=== PATIENT | male | born 1965 | race African-American/Black ===

== ENCOUNTER → 2016-07-22 | Outpatient (CLI) | payer MEDICARE, OTHER ==
[2016-07-22 09:37] LABS: Basophils % (A) 0 %; CH 31.2; CHCM 32.5; Eosinophils # (A) 0.1 k/uL (0-0.7); Eosinophils % (A) 3 %; HDW 2.75; HGB 12.8 gm/dL (13.0-17.5); Luc # (Auto) 0.13; Luc % (Auto) 4; Lymphocytes # (A) 1.7 k/uL (1.0-4.8); Lymphocytes % (A) 48 %; MCH 30.8 pg (25.0-35.0); MCV 96.4 fL (80.0-100.0); Monocytes # (A) 0.3 k/uL (0-1.0); Monocytes % (A) 7 %; Neutrophils # (A) 1.3 k/uL (1.3-7.7); Neutrophils % (A) 38 %; RBC 4.15 m/uL (4.30-5.90); RDW 13.2 % (11.5-15.5); WBC 3.5 k/uL (3.8-10.6); WBC (Perox) 3.76
[2016-07-22 10:13] LABS: ALT 34 U/L (21-72); AST 25 U/L (17-59); Alkaline Phosphatase 66 U/L (38-126); Anion Gap 10 mmol/L; Blood Urea Nitrogen 11 mg/dL (9-20); Calcium 9.1 mg/dL (8.4-10.2); Carbon Dioxide 25 mmol/L (22-30); Chloride 108 mmol/L (98-107); Glucose 138 mg/dL (74-99); Non-African American GFR(MDRD) >60 (>60 ml/min/1.73 sqM); Potassium 4.6 mmol/L (3.5-5.1); Sodium 143 mmol/L (137-145); Total Bilirubin 0.4 mg/dL (0.2-1.3); Total Protein 6.6 g/dL (6.3-8.2)
[2016-07-23 14:04] LABS: LOG HIV Copies/mL <1.60 (<1.60)
== END | disposition home or self-care (01) ==
LOC: LABWHC1 09:02
PROVIDERS: ATTEND Internal Medicine Infectious Disease
DX: B20 Human immunodeficiency virus [HIV] disease (principal)
CPT/HCPCS: 36415; 80053; 85025; 86360; 87536

== ENCOUNTER 2016-10-03 16:47 | Emergency (ER) | payer MEDICARE, OTHER ==
--- NOTE | 2016-10-03 17:02 | ED ---
Wound/Laceration HPI - General Stated Complaint: finger laceration Time Seen by Provider: 10/03/16 16:59 Source: RN notes reviewed - History of Present Illness Initial Comments: Patient is a 51-year-old male chief complaint of a laceration over his right middle finger. 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 Patient reports his tetanus vaccination is up-to-date. He denies any decreased range of motion of the finger. He states he's never had stitches before. Patient denies any peripheral paresthesias over the finger. He denies any decreased range of motion. He denies any other illnesses. Patient denies any recent fever, chills, shortness of breath, chest pain, back pain, abdominal pain, nausea vomiting, numbness or tingling, dysuria or hematuria, constipation or diarrhea, headaches or visual changes, or any other current symptoms. - Related Data Home Medications Medication Instructions Recorded Confirmed Olmesartan Medoxomil [Benicar] 40 mg PO DAILY 04/23/14 10/03/16 Aspirin 81 mg PO DAILY 05/29/14 10/03/16 Esomeprazole Magnesium [NexIUM] 40 mg PO DAILY 05/29/14 10/03/16 Metoprolol Tartrate [Lopressor] 12.5 mg PO BID 10/22/15 10/03/16 ALPRAZolam [Xanax] 2 mg PO BID PRN 10/03/16 10/03/16 Atorvastatin [Lipitor] 80 mg PO HS 10/03/16 10/03/16 Fluconazole [Diflucan] 100 mg PO DAILY 10/03/16 10/03/16 Gabapentin 800 mg PO BID 10/03/16 10/03/16 HYDROcodone/APAP 7.5-325MG [[place] 1 tab PO Q6HR PRN 10/03/16 10/03/16 7.5-325] Previous Rx's Medication Instructions Recorded Cephalexin [Keflex] 500 mg PO Q8HR #21 cap 10/03/16 Allergies Allergy/AdvReac Type Severity Reaction Status Date / Time No Known Allergies Allergy Verified 10/03/16 17:24 Review of Systems ROS Statement: Those systems with pertinent positive or pertinent negative responses have been documented in the HPI. ROS Other: All systems not noted in ROS Statement are negative. Past Medical History Past Medical History: Chest Pain / Angina, GERD/Reflux, Hypertension, Myocardial Infarction ([place]), Osteoarthritis ([place]) Additional Past Medical History / Comment(s): HIV Last Myocardial Infarction Date:: 2005 History of Any Multi-Drug Resistant Organisms: None Reported Past Surgical History: Coronary Bypass/CABG, Heart Catheterization Additional Past Surgical History / Comment(s): carpal tunnel, CABG 4 VESSEL-2006 Past Anesthesia/Blood Transfusion Reactions: No Reported Reaction Past Psychological History: No Psychological Hx Reported Smoking Status: Current every day smoker Past Alcohol Use History: None Reported Additional Past Alcohol Use History / Comment(s): Smokes 1-2 cigarettes a day since 13yrs old. Past Drug Use History: None Reported - Past Family History Father Family Medical History: Cancer Additional Family Medical History / Comment(s): THROAT Mother Family Medical History: Cancer General Exam - General Exam Comments Initial Comments: Well-appearing 51-year-old male. No acute distress General appearance: alert, in no apparent distress Head exam: Present: atraumatic, normocephalic, normal inspection Eye exam: Present: normal appearance, PERRL, EOMI. Absent: scleral icterus, conjunctival injection, periorbital swelling ENT exam: Present: normal exam, mucous membranes moist Neck exam: Present: normal inspection. Absent: tenderness, meningismus, lymphadenopathy Respiratory exam: Present: normal lung sounds bilaterally. Absent: respiratory distress, wheezes, rales, rhonchi, stridor Cardiovascular Exam: Present: regular rate, normal rhythm, normal heart sounds. Absent: systolic murmur, diastolic murmur, rubs, gallop, clicks GI/Abdominal exam: Present: soft, normal bowel sounds. Absent: distended, tenderness, guarding, rebound, rigid Extremities exam: Present: normal inspection, full ROM, normal capillary refill. Absent: tenderness, pedal edema, joint swelling, calf tenderness Right Hand Wrist exam: Present: full ROM (Patient has a laceration over the right middle finger. Laceration is consistent with a flap.). Absent: normal inspection Hand L/R Back: 1 - laceration measuring 3cm Neuro motor exam: Present: wrist extension intact, thumb opposition intact Vascular: Present: normal capillary refill Back exam: Present: normal inspection Neurological exam: Present: alert, oriented X3, CN II-XII intact Psychiatric exam: Present: normal affect, normal mood Skin exam: Present: warm, dry, intact, normal color. Absent: rash Course Vital Signs 10/03/16 10/03/16 17:03 18:03 Temperature 97.5 F L 97.5 F L Pulse Rate 79 79 Respiratory 18 18 Rate Blood Pressure 126/63 126/63 O2 Sat by Pulse 99 99 Oximetry Procedures - Laceration Laceration #1 Site: hand (middle finger ) Size (cm): 4 Description: flap Depth: simple, single layer Anesthetic Used: benzocaine 0.25% Anesthesia Technique: local infiltration, nerve block Amount (mls): 4 Pre-repair: wound explored, irrigated extensively Size of Sutures: 5-0 Number of Sutures: 5 Technique: simple, interrupted Patient Tolerated Procedure: well, no complications Medical Decision Making - Medical Decision Making Well-appearing 51-year-old male with a chief complaint of laceration over the right middle finger. Patient cut it while slicing tomatoes at work. Patient wound was approximated with 5 sutures. Wound was soaked in Betadine and soapy water. Patient tolerating the sutures will. I discussed to monitor for any signs of infection. Patient is immunocompromised with HIV. Patient will be placed on Keflex for infection prevention. Patient also has full range of motion of the finger and no evidence of tendon involvement. We will put the patient in a finger cot and when he removes the patient will remain in a finger splint to ensure that the wound does not dehisce. Patient agrees with the treatment plan will comply. Return parameters were discussed. Disposition Clinical Impression: Finger laceration Disposition: HOME SELF-CARE Condition: Good Instructions: Finger Laceration (ED) Additional Instructions: Please return to the emergency room in 7 days to have sutures removed. Please leave wound covered for the first 24-48 hours and then leave open to air after that time. Please use clean soap and water to clean the suture area to prevent scabbing over the top of your sutures. Please watch for any signs of infection which may include but not limited to increased pain, swelling, redness, fever or chills. Please return to the emergency room if any signs of infection do occur. Please return to the emergency room for any other concerns or complications. Prescriptions: Cephalexin [Keflex] 500 mg PO Q8HR #21 cap Referrals: Andrey Cota MD [Primary Care Provider] - 1-2 days Time of Disposition: 17:49
[2016-10-03 17:06] VITALS: BP 126/63; PULSE 79; RESP 18; TEMP 97.5
== END 2016-10-03 18:05 | disposition home or self-care (01) ==
LOC: EC 16:47
DX: S61.212A Laceration without foreign body of right middle finger without damage to nail, initial encounter (principal); I10 Essential (primary) hypertension; K21.9 Gastro-esophageal reflux disease without esophagitis; M19.90 Unspecified osteoarthritis, unspecified site; I25.2 Old myocardial infarction; F17.210 Nicotine dependence, cigarettes, uncomplicated; Z79.82 Long term (current) use of aspirin; Z79.899 Other long term (current) drug therapy; W45.8XXA Other foreign body or object entering through skin, initial encounter; Y92.69 Other specified industrial and construction area as the place of occurrence of the external cause; Y99.0 Civilian activity done for income or pay
CPT/HCPCS: 12002; 99282

== ENCOUNTER 2016-10-13 16:37 | Emergency (ER) | payer MEDICARE, OTHER ==
[2016-10-13 16:56] VITALS: BP 146/94; PULSE 88; RESP 18; TEMP 98
--- NOTE | 2016-10-13 17:10 | ED ---
Lower Extremity Injury HPI - General Chief Complaint: Extremity Injury, Lower Stated Complaint: L Ankle Injury Time Seen by Provider: 10/13/16 16:48 Source: patient, RN notes reviewed Mode of arrival: wheelchair Limitations: physical limitation - History of Present Illness Initial Comments: 51-year-old male presents to the emergency department with a chief complaint of left ankle injury. Patient states he is walking on the stairs carrying laundry basket and he tripped and fell. Patient states now has pain to the left ankle pain with bearing weight. Patient also admits to bilateral knees. Patient states he did not hit his head. He states his pain is 10 out of 10 and worse to movement or touch. Patient states there is no lightheadedness or dizziness no chest pain or shortness of prior to the fall.Patient denies any recent fever , chills, shortness of breath, chest pain, back pain, abdominal pain, nausea vomiting, numbness or tingling, dysuria or hematuria, constipation or diarrhea, headaches or visual changes, or any other current symptoms. - Related Data Home Medications Medication Instructions Recorded Confirmed Olmesartan Medoxomil [Benicar] 40 mg PO DAILY 04/23/14 10/13/16 Aspirin 81 mg PO DAILY 05/29/14 10/13/16 Esomeprazole Magnesium [NexIUM] 40 mg PO DAILY 05/29/14 10/13/16 Metoprolol Tartrate [Lopressor] 12.5 mg PO BID 10/22/15 10/13/16 ALPRAZolam [Xanax] 2 mg PO BID PRN 10/03/16 10/13/16 Atorvastatin [Lipitor] 80 mg PO HS 10/03/16 10/13/16 Fluconazole [Diflucan] 100 mg PO DAILY 10/03/16 10/13/16 Gabapentin 800 mg PO BID 10/03/16 10/13/16 HYDROcodone/APAP 7.5-325MG [[place] 1 tab PO Q6HR PRN 10/03/16 10/13/16 7.5-325] Previous Rx's Medication Instructions Recorded Ibuprofen [Motrin] 600 mg PO Q6HR PRN #20 tab 10/13/16 Allergies Allergy/AdvReac Type Severity Reaction Status Date / Time No Known Allergies Allergy Verified 10/13/16 16:59 Review of Systems ROS Statement: Those systems with pertinent positive or pertinent negative responses have been documented in the HPI. ROS Other: All systems not noted in ROS Statement are negative. Past Medical History Past Medical History: Chest Pain / Angina, GERD/Reflux, Hypertension, Myocardial Infarction ([place]), Osteoarthritis (OA) Additional Past Medical History / Comment(s): HIV Last Myocardial Infarction Date:: 2005 History of Any Multi-Drug Resistant Organisms: None Reported Past Surgical History: Coronary Bypass/CABG, Heart Catheterization Additional Past Surgical History / Comment(s): carpal tunnel, CABG 4 VESSEL-2006 Past Anesthesia/Blood Transfusion Reactions: No Reported Reaction Past Psychological History: No Psychological Hx Reported Smoking Status: Current every day smoker Past Alcohol Use History: None Reported Additional Past Alcohol Use History / Comment(s): Smokes 1-2 cigarettes a day since 13yrs old. Past Drug Use History: None Reported - Past Family History Father Family Medical History: Cancer Additional Family Medical History / Comment(s): THROAT Mother Family Medical History: Cancer General Exam - General Exam Comments Initial Comments: General: The patient is awake and alert, in no distress, and does not appear acutely ill. Neck: The neck is supple, there is no tenderness or JVD. Cardiovascular: There is a regular rate and rhythm. No murmur, rub or gallop is appreciated. Respiratory: Lungs are clear to auscultation, respirations are non-labored, breath sounds are equal. No wheezes, stridor, rales, or rhonchi. Musculoskeletal: Sensation intact with 2+ pulses throughout the left and right lower extremities. Full Range of motion of the right ankle. Patient's wound motion the right knee with some tenderness medially. No tenderness in left hip. Patient is well-nourished of left hip. Patient has one motion of left knee with diffuse minimal tenderness. Patient has pain to palpation along the left lateral aspect of the left ankle with associated swelling over the lateral malleolus. Minimal tenderness patient over the medial malleolus of left ankle. 2+ pulses throughout less than 2 capillary refill. Neurological: CN II-XII intact, There are no obvious motor or sensory deficits. Coordination appears grossly intact. Speech is normal. Skin: Skin is warm and dry and no rashes or lesions are noted. Psychiatric: Normal mood and affect. Limitations: physical limitation Course Vital Signs 10/13/16 16:52 Temperature 98.0 F Pulse Rate 88 Respiratory 18 Rate Blood Pressure 146/94 O2 Sat by Pulse 97 Oximetry Procedures - Orthopedic Splinting/Casting Injury #1 Side: left Lower Extremity Injury Location: ankle Lower Extremity Immobilizer: Kevin wrap Medical Decision Making - Medical Decision Making 50-year-old male presents for left ankle pain and bilateral knee pain after a fall. At this time the patient's x-rays are reviewed that showed no acute process. Patient was placed in Kevin bandage. We discussed ice we discussed Motrin Tylenol for pain control. We did discuss return parameters and follow- up. We discussed all the patient's questions. He stated that he understood the plan. He will be discharged. - Radiology Data Radiology results: report reviewed, image reviewed Disposition Clinical Impression: Left ankle sprain, Fall Disposition: HOME SELF-CARE Condition: Stable Instructions: Ankle Sprain (ED) Additional Instructions: Please use medication as discussed. Please follow up with family doctor if symptoms have not improved over the next two days. Please return to the emergency room if your symptoms increase or worsen or for any other concerns. Prescriptions: Ibuprofen [Motrin] 600 mg PO Q6HR PRN #20 tab PRN Reason: Pain Referrals: Andrey Cota MD [Primary Care Provider] - 1-2 days Rui Harper MD [STAFF PHYSICIAN] - 1-2 days Time of Disposition: 17:40
--- NOTE | 2016-10-13 17:35 | XR ---
EXAMINATION TYPE: XR knee complete bilateral DATE OF EXAM: 10/13/2016 5:31 PM COMPARISON: NONE HISTORY: Pain after fall TECHNIQUE: 6 views FINDINGS: The joint spaces are fairly normal. There is normal alignment. There is no sign of knee wes nt effusion. There are surgical clips at the left knee. There is sclerosis in the proximal left tibia that could relate to bone infarct or old surgery. IMPRESSION: No acute abnormality of the left and right knee. No fracture. Normal joint spaces.
--- NOTE | 2016-10-13 17:35 | XR ---
EXAMINATION TYPE: XR ankle complete LT DATE OF EXAM: 10/13/2016 5:30 PM COMPARISON: NONE HISTORY: Pain after a fall TECHNIQUE: 3 views FINDINGS: There is soft tissue swelling over the lateral malleolus. Ankle mortise is anatomic. There is a plantar calcaneal spur. I see no fracture. IMPRESSION: Lateral soft tissue swelling. No fracture seen.
== END 2016-10-13 17:55 | disposition home or self-care (01) ==
LOC: EC 16:37
DX: S93.402A Sprain of unspecified ligament of left ankle, initial encounter (principal); K21.9 Gastro-esophageal reflux disease without esophagitis; I10 Essential (primary) hypertension; I25.2 Old myocardial infarction; M19.90 Unspecified osteoarthritis, unspecified site; F17.200 Nicotine dependence, unspecified, uncomplicated; Z79.82 Long term (current) use of aspirin; Z79.899 Other long term (current) drug therapy; X50.1XXA Overexertion from prolonged static or awkward postures, initial encounter; W10.9XXA Fall (on) (from) unspecified stairs and steps, initial encounter; Y92.009 Unspecified place in unspecified non-institutional (private) residence as the place of occurrence of the external cause
CPT/HCPCS: 99283

== ENCOUNTER → 2016-11-11 | Outpatient (CLI) | payer MEDICARE, OTHER ==
[2016-11-11 11:56] LABS: Basophils % (A) 0 %; CH 31.6; CHCM 32.9; Eosinophils # (A) 0.1 k/uL (0-0.7); Eosinophils % (A) 3 %; HCT 38.3 % (39.0-53.0); HDW 2.78; HGB 12.2 gm/dL (13.0-17.5); Luc # (Auto) 0.13; Luc % (Auto) 3; Lymphocytes # (A) 1.7 k/uL (1.0-4.8); Lymphocytes % (A) 39 %; MCH 30.8 pg (25.0-35.0); MCHC 31.9 g/dL (31.0-37.0); MCV 96.5 fL (80.0-100.0); Mean Platelet Volume 7.3; Monocytes # (A) 0.2 k/uL (0-1.0); Monocytes % (A) 6 %; Neutrophils # (A) 2.2 k/uL (1.3-7.7); Neutrophils % (A) 50 %; RBC 3.96 m/uL (4.30-5.90); RDW 13.7 % (11.5-15.5); WBC 4.4 k/uL (3.8-10.6); WBC (Perox) 4.54
[2016-11-11 12:09] LABS: ALT 24 U/L (21-72); AST 19 U/L (17-59); Alkaline Phosphatase 69 U/L (38-126); Anion Gap 10 mmol/L; Blood Urea Nitrogen 19 mg/dL (9-20); Calcium 9.2 mg/dL (8.4-10.2); Carbon Dioxide 20 mmol/L (22-30); Chloride 107 mmol/L (98-107); Glucose 245 mg/dL (74-99); Non-African American GFR(MDRD) 59 (>60 ml/min/1.73 sqM); Potassium 5.6 mmol/L (3.5-5.1); Sodium 137 mmol/L (137-145); Total Bilirubin 0.6 mg/dL (0.2-1.3); Total Protein 7.1 g/dL (6.3-8.2)
[2016-11-11 14:20] LABS: Hemoglobin A1C 8.8 % (4.2-6.1)
[2016-11-12 16:46] LABS: LOG HIV Copies/mL <1.60 (<1.60)
== END | disposition home or self-care (01) ==
LOC: LABWHC1 11:32
PROVIDERS: ATTEND Internal Medicine Infectious Disease
DX: B20 Human immunodeficiency virus [HIV] disease (principal)
CPT/HCPCS: 36415; 80053; 83036; 85025; 86360; 87536

== ENCOUNTER → 2017-02-03 | Outpatient (CLI) | payer MEDICARE, OTHER ==
[2017-02-03 11:00] LABS: Basophils % (A) 1 %; CH 32.2; CHCM 33.3; Eosinophils # (A) 0.1 k/uL (0-0.7); Eosinophils % (A) 2 %; HCT 37.7 % (39.0-53.0); HDW 2.76; HGB 12.5 gm/dL (13.0-17.5); Luc # (Auto) 0.18; Luc % (Auto) 4; Lymphocytes # (A) 2.4 k/uL (1.0-4.8); Lymphocytes % (A) 48 %; MCH 32.1 pg (25.0-35.0); MCV 97.2 fL (80.0-100.0); Mean Platelet Volume 8.5; Monocytes # (A) 0.3 k/uL (0-1.0); Monocytes % (A) 7 %; Neutrophils # (A) 1.9 k/uL (1.3-7.7); Neutrophils % (A) 39 %; RBC 3.88 m/uL (4.30-5.90); RDW 14.4 % (11.5-15.5); WBC 4.9 k/uL (3.8-10.6); WBC (Perox) 4.59
[2017-02-03 11:14] LABS: ALT 31 U/L (21-72); AST 20 U/L (17-59); Alkaline Phosphatase 59 U/L (38-126); Anion Gap 8 mmol/L; Blood Urea Nitrogen 19 mg/dL (9-20); Carbon Dioxide 23 mmol/L (22-30); Chloride 108 mmol/L (98-107); Glucose 140 mg/dL (74-99); Non-African American GFR(MDRD) 54 (>60 ml/min/1.73 sqM); Potassium 4.9 mmol/L (3.5-5.1); Sodium 139 mmol/L (137-145); Total Bilirubin 0.3 mg/dL (0.2-1.3); Total Protein 6.6 g/dL (6.3-8.2)
[2017-02-04 13:33] LABS: LOG HIV Copies/mL <1.60 (<1.60)
== END | disposition home or self-care (01) ==
LOC: LABWHC1 10:40
PROVIDERS: ATTEND Internal Medicine Infectious Disease
DX: B20 Human immunodeficiency virus [HIV] disease (principal)
CPT/HCPCS: 36415; 80053; 83036; 85025; 86360; 87536

== ENCOUNTER 2017-07-10 12:00 | Emergency (ER) | payer MEDICARE, OTHER ==
[2017-07-10] MEDS ORDERED: SODIUM CHLORIDE 0.9% 1,000 ML BAG ONE (14:50)
[2017-07-10] MEDS ORDERED: ASPIRIN 81 MG ONE (15:00)
--- NOTE | 2017-07-11 10:50 | XR ---
EXAMINATION TYPE: TEMPORARY DATE OF EXAM: 07/10/2017 COMPARISON: 05/24/2015 TECHNIQUE: One view submitted. HISTORY: Pain FINDINGS: The lungs are clear and there is no pneumothorax, pleural effusion, or focal pneumonia. Postsurgica l change. No overt failure. IMPRESSION: 1. No acute process.
[2017-07-11 13:27] LABS: Basophils % (A) 1 %; Eosinophils # (A) 0.1 k/uL (0-0.7); Eosinophils % (A) 2 %; HCT 40.2 % (39.0-53.0); HGB 13.5 gm/dL (13.0-17.5); Lymphocytes # (A) 1.6 k/uL (1.0-4.8); Lymphocytes % (A) 38 %; MCH 33.2 pg (25.0-35.0); MCHC 33.5 g/dL (31.0-37.0); MCV 98.9 fL (80.0-100.0); Mean Platelet Volume 7.3; Monocytes # (A) 0.3 k/uL (0-1.0); Monocytes % (A) 7 %; Neutrophils % (A) 48 %; Platelet Count 133 k/uL (150-450); RBC 4.06 m/uL (4.30-5.90); WBC 4.2 k/uL (3.8-10.6)
[2017-07-11 15:27] LABS: Anisocytosis (M) Present; Poikilocytosis (M) Present
[2017-07-11 15:29] LABS: Creatine Kinase MB 0.6 ng/mL (0.0-2.4); Troponin I 0.016 ng/mL (0.000-0.034)
[2017-07-11 16:26] LABS: Creatine Kinase MB 0.6 ng/mL (0.0-2.4); Troponin I 0.019 ng/mL (0.000-0.034)
[2017-07-11 16:52] LABS: Albumin 4.5 g/dL (3.5-5.0); Calcium 10.1 mg/dL (8.4-10.2); Magnesium 1.9 mg/dL (1.6-2.3); Potassium 6.1 mmol/L (3.5-5.1); Total Bilirubin 0.5 mg/dL (0.2-1.3); Total Protein 7.4 g/dL (6.3-8.2)
[2017-07-13 13:36] LABS: Glucose,Whole Blood 130 mg/dL (75-99)
== END 2017-07-10 19:19 | disposition left against medical advice (07) ==
LOC: EC 12:00
DX: R55 Syncope and collapse (principal); R42 Dizziness and giddiness; F17.200 Nicotine dependence, unspecified, uncomplicated
CPT/HCPCS: 36415; 71020; 80053; 82550; 82553; 83735; 83880; 84484; 85025; 93005; 96360; 96361; 99284

== ENCOUNTER → 2017-09-03 | Outpatient (CLI) | payer MEDICARE, OTHER ==
--- NOTE | 2017-09-03 12:17 | XR ---
EXAM TYPE: LUMBAR SPINE X RAY SERIES COMPARISON: NONE HISTORY: Chronic pain TECHNIQUE: Three views are submitted. FINDINGS: Alignment is anatomic. The pedicles are intact. The transverse processes are intact. There is grad e 1 anterolisthesis L5 on S1. Suspect bilateral spondylolysis. Changes of chronic constipation. There is a calcification the left upper abdomen measuring 3 mm in di ameter. IMPRESSION: 1. Grade 1 anterolisthesis L5 on S1. Bilateral spondylolysis suspected. 2. Correlate for constipation. 3. Left hemipelvic calcifications measures 3 mm and could potentially been the course of the left ure ter. Correlate clinically.
== END | disposition home or self-care (01) ==
LOC: RADXRMAIN 11:56
PROVIDERS: ATTEND Internal Medicine Infectious Disease
DX: M43.17 Spondylolisthesis, lumbosacral region (principal)
CPT/HCPCS: 72100

== ENCOUNTER → 2017-10-12 | Outpatient (CLI) | payer MEDICARE, OTHER ==
[2017-10-12 08:36] LABS: Basophils % (A) 1 %; Eosinophils # (A) 0.1 k/uL (0-0.7); Eosinophils % (A) 3 %; HCT 35.8 % (39.0-53.0); HGB 11.5 gm/dL (13.0-17.5); Lymphocytes # (A) 1.5 k/uL (1.0-4.8); Lymphocytes % (A) 35 %; MCH 31.8 pg (25.0-35.0); MCV 99.2 fL (80.0-100.0); Mean Platelet Volume 7.9; Monocytes # (A) 0.3 k/uL (0-1.0); Monocytes % (A) 8 %; Neutrophils # (A) 2.2 k/uL (1.3-7.7); Neutrophils % (A) 52 %; Platelet Count 128 k/uL (150-450); RBC 3.61 m/uL (4.30-5.90); RDW 13.8 % (11.5-15.5); WBC 4.2 k/uL (3.8-10.6)
[2017-10-12 08:50] LABS: Calcium 9.5 mg/dL (8.4-10.2); Potassium 4.5 mmol/L (3.5-5.1); Total Bilirubin 0.3 mg/dL (0.2-1.3); Total Protein 6.6 g/dL (6.3-8.2)
[2017-10-13 11:11] LABS: T4/T8 Ratio (CD4:CD8) 0.3 (1.0-3.7)
[2017-10-13 13:27] LABS: HIV-1 RNA Not detected (Not detected); HIV-1 RNA, Quant <40 Copies/mL (<40)
== END | disposition home or self-care (01) ==
LOC: LABWHC1 07:51
PROVIDERS: ATTEND Internal Medicine Infectious Disease
DX: B20 Human immunodeficiency virus [HIV] disease (principal)
CPT/HCPCS: 36415; 80053; 85025; 86360; 87536

== ENCOUNTER → 2018-02-05 | Outpatient (CLI) | payer MEDICARE, OTHER ==
[2018-02-05 11:49] LABS: Calcium 9.3 mg/dL (8.4-10.2); Potassium 5.3 mmol/L (3.5-5.1); Total Bilirubin 0.5 mg/dL (0.2-1.3); Total Protein 6.3 g/dL (6.3-8.2)
[2018-02-05 12:10] LABS: Basophils % (A) 1 %; Eosinophils # (A) 0.1 k/uL (0-0.7); Eosinophils % (A) 3 %; HCT 35.8 % (39.0-53.0); HGB 11.6 gm/dL (13.0-17.5); Lymphocytes # (A) 1.3 k/uL (1.0-4.8); Lymphocytes % (A) 38 %; MCH 31.4 pg (25.0-35.0); MCHC 32.5 g/dL (31.0-37.0); MCV 96.8 fL (80.0-100.0); Mean Platelet Volume 7.5; Monocytes # (A) 0.3 k/uL (0-1.0); Monocytes % (A) 8 %; Neutrophils # (A) 1.6 k/uL (1.3-7.7); Neutrophils % (A) 46 %; Platelet Count 128 k/uL (150-450); RBC 3.69 m/uL (4.30-5.90); RDW 13.7 % (11.5-15.5); WBC 3.4 k/uL (3.8-10.6)
[2018-02-08 12:58] LABS: T4/T8 Ratio (CD4:CD8) 0.3 (1.0-3.7)
== END | disposition home or self-care (01) ==
LOC: LABWHC1 11:07
PROVIDERS: ATTEND Internal Medicine Infectious Disease
DX: B20 Human immunodeficiency virus [HIV] disease (principal)
CPT/HCPCS: 36415; 80053; 85025; 86360; 87536

== ENCOUNTER → 2018-03-20 | Outpatient (CLI) | payer MEDICARE, OTHER ==
[2018-03-20 11:52] LABS: HCT 40.3 % (39.0-53.0); MCH 31.3 pg (25.0-35.0); MCHC 32.2 g/dL (31.0-37.0); MCV 97.4 fL (80.0-100.0); Platelet Count 129 k/uL (150-450); RBC 4.14 m/uL (4.30-5.90); RDW 13.5 % (11.5-15.5); WBC 4.4 k/uL (3.8-10.6)
[2018-03-20 12:03] LABS: Potassium 5.2 mmol/L (3.5-5.1)
== END | disposition home or self-care (01) ==
LOC: LABPAT 11:34
PROVIDERS: ATTEND Internal Medicine Interventional Cardiology
DX: Z01.812 Encounter for preprocedural laboratory examination (principal); I25.10 Atherosclerotic heart disease of native coronary artery without angina pectoris; I50.22 Chronic systolic (congestive) heart failure; I10 Essential (primary) hypertension
CPT/HCPCS: 36415; 80051; 82565; 84520; 85027

== ENCOUNTER 2018-03-24 10:59 | Day surgery (SDC) | payer MEDICARE, OTHER ==
[2018-03-19 08:41] VITALS: BMI 24.2
[~2018-03-24 10:59] MED LIST: ALPRAZolam 0.25 MG TAB PO PRN; ASPIRIN 325 MG TAB PO ONE; ASPIRIN 325 MG TAB PO STA; NITROGLYCERIN SL TABS 0.4 MG TAB SUBLINGUAL PRN; SODIUM CHLORIDE 0.9% 1,000 ML in EMPTY BAG 1 BAG IV ONE
[2018-03-24 11:51] LABS: Glucose,Whole Blood 378 mg/dL (75-99)
[2018-03-24] MEDS ORDERED: INSULIN ASPART 100 UNIT/ML 1 ML 10 ML VIAL SQ ONE ×2 (11:52→12:09)
[2018-03-24] MEDS ORDERED: MIDAZOLAM 2 MG/2 ML VIAL ONE (11:53)
[2018-03-24] MEDS ORDERED: LIDOCAINE 1% INJ 10MG/ML (20 ML MDV) ONE (11:53)
[2018-03-24] MEDS ORDERED: HEPARIN SODIUM 1,000 UN/ML (10ML VL) ONE (11:53)
[2018-03-24] MEDS ORDERED: VERAPAMIL 2.5 MG/ML 2 ML AMP ONE (11:53)
[2018-03-24] MEDS ORDERED: IV FLUID CONTINUATION 1,000 ML IV ONE (12:13)
[2018-03-24] MEDS ORDERED: MIDAZOLAM 2 MG/2 ML VIAL IVP ONE (12:14)
[2018-03-24] MEDS ORDERED: LIDOCAINE 1% INJ 10MG/ML (20 ML MDV) SQ ONE (12:19)
[2018-03-24] MEDS ORDERED: fentaNYL (PF) 50 MCG/ML 2 ML AMP ONE (12:22)
[2018-03-24] MEDS: fentaNYL (PF) 50 MCG/ML 2 ML AMP IVP ONE ×2 (12:24→13:06)
[2018-03-24] MEDS ORDERED: IOPAMIDOL-370 125ML BTL INJ ONE (12:57)
[2018-03-24] MEDS ORDERED: RX INFO: IV CONTRAST WAS GIVEN 1 EACH MISC MISCELLANE PRN (13:14)
[2018-03-24] MEDS ORDERED: SODIUM CHLORIDE 0.9% 1,000 ML IV SCH (13:15)
--- NOTE | 2018-03-24 14:14 | P.GSCN ---
History of Present Illness Consult date: 03/24/18 Reason for Consult: Coronary artery disease, occlusion of saphenous vein grafts, recommendations for redo CABG versus stenting Requesting physician: Jimbo Leonard History of present illness: This is a 52-year-old gentleman who recently changed doctors and will be followed Dr. Andrey Cota on an outpatient basis. He has a previous medical history of coronary artery disease with prior coronary artery bypass grafting in 2005 in [place] at [facility], hypertension, hyperlipidemia, ischemic cardiomyopathy, HIV positive diagnosis 2013, non- insulin-dependent diabetes, previous tobacco dependence, and significant family history of coronary artery disease diagnosed before the age of 6060 years old. Last heart catheterization completed on this patient was done in October 2015 with 100% occlusion of the saphenous vein graft to the LAD, intermediate disease in the saphenous vein graft to the RCA, and patent saphenous vein graft to the OM. Medical management was continued at that time. The patient presented to Dr. Leonard's office with complaints of intermittent chest pain with exertion as well as exertional dyspnea which is relieved with sublingual nitro and rest. He does admit to occasional dizziness, but does denies syncope, nausea, or any other symptoms. Stress test was completed and Dr. Sun's office which demonstrated a large scar in the anterior wall LV as well as moderate ischemia on the septum of the LV with transient ischemic irritation. He was recommended to undergo heart catheterization which was completed today and which demonstrated continued 100% stenosis of the saphenous vein graft to the LAD, 80% stenosis in the saphenous vein graft to the OM, and 100% stenosis in the saphenous vein graft to the RCA. Dr. Wilson from cardiothoracic surgery was consulted for recommendations regarding redo CABG versus stenting to the OM and RCA. Review of Systems Review of systems was completed and is negative except as noted. - Constitutional Reports weight loss - Cardiovascular Reports chest pain, Reports dyspnea on exertion Past Medical History Past Medical History: Asthma, Chest Pain / Angina, Diabetes Mellitus, GERD/ Reflux, Hyperlipidemia, Hypertension, Myocardial Infarction ([place]) Additional Past Medical History / Comment(s): HIV, chronic low back pain Last Myocardial Infarction Date:: 2005 History of Any Multi-Drug Resistant Organisms: None Reported Past Surgical History: Coronary Bypass/CABG, Heart Catheterization Additional Past Surgical History / Comment(s): apoorva carpal tunnel, CABG 4 VESSEL- 2006 Past Anesthesia/Blood Transfusion Reactions: No Reported Reaction Past Psychological History: No Psychological Hx Reported Smoking Status: Former smoker Past Alcohol Use History: None Reported Past Drug Use History: Marijuana Additional Drug Use History / Comment(s): Quit smoking 2 months ago, prior to that smoked half pack a day for 15 years, occasional marijuana use - Past Family History Father Family Medical History: Cancer Additional Family Medical History / Comment(s): THROAT Mother Family Medical History: Cancer Sister(s) Family Medical History: Coronary Artery Disease (CAD) Medications and Allergies Home Medications Medication Instructions Recorded Confirmed Type Olmesartan Medoxomil [Benicar] 40 mg PO DAILY 04/23/14 03/19/18 History Esomeprazole Magnesium [NexIUM] 40 mg PO DAILY 05/29/14 03/19/18 History ALPRAZolam [Xanax] 2 mg PO BID PRN 10/03/16 03/24/18 History Atorvastatin [Lipitor] 80 mg PO HS 10/03/16 03/24/18 History HYDROcodone/APAP 7.5-325MG [[place] 1 tab PO Q6HR PRN 10/03/16 03/19/18 History 7.5-325] Gabapentin [Neurontin] 600 mg PO BID 07/11/17 03/19/18 History Spironolactone [Aldactone] 25 mg PO DAILY 07/11/17 03/19/18 History Albuterol Inhaler [Ventolin Hfa 1 - 2 puff INHALATION RT-Q6H PRN 03/19/18 History Inhaler] Aspirin 325 mg PO DAILY 03/19/18 03/24/18 History Bictegrav/Emtricit/Tenofov [place] 1 each PO DAILY 03/19/18 03/19/18 History [Biktarvy 50-200-25 mg Tablet] Nitroglycerin Sl Tabs [Nitrostat] 0.4 mg SUBLINGUAL Q5M PRN 03/19/18 03/19/18 History metFORMIN HCL [Glucophage] 500 mg PO BID 03/19/18 03/19/18 History Allergies Allergy/AdvReac Type Severity Reaction Status Date / Time No Known Allergies Allergy Verified 03/19/18 08:29 Surgical - Exam Vital Signs Temp Pulse Resp BP Pulse Ox 97.8 F 60 20 125/70 99 03/24/18 11:19 03/24/18 11:19 03/24/18 11:19 03/24/18 11:19 03/24/18 11:19 - General well developed, well nourished, no distress, no pain - Eyes PERRL, normal ocular movement - ENT no hearing loss - Neck no masses, no bruits, trachea midline - Respiratory Lungs sounds clear bilaterally. Respirations even, nonlabored. Currently on room air with oxygen saturation 98%. No chest wall deformities noted. - Cardiovascular S1, S2 present. No murmur heard. Regular rate and rhythm, sinus rhythm on telemetry. Palpable peripheral pulses bilaterally. No edema present. No calf pain or tenderness noted. No varicosities noted. - Abdomen Abdomen: soft, non tender, bowel sounds - Genitourinary Deferred - Rectum Deferred - Integumentary Anterior chest incision well healed, left lower extremity EVH site well healed. no rash, no growths - Neurologic normal coordination, normal sensation - Psychiatric oriented to time, oriented to person, oriented to place, speech is normal, memory intact Results - Labs Abnormal Lab Results - Last 24 Hours (Table) 03/24/18 Range/Units 11:49 POC Glucose (mg/dL) 378 H (75-99) mg/dL - Imaging Additional studies: Cardiac catheterization films reviewed. Assessment and Plan (1) Coronary artery disease Current Visit: Yes Status: Chronic Code(s): I25.10 - ATHSCL HEART DISEASE OF [place] CORONARY ARTERY W/O ANG PCTRS SNOMED Code(s): 74813627 (2) Status post coronary artery bypass graft Current Visit: Yes Status: Chronic Code(s): Z95.1 - PRESENCE OF AORTOCORONARY BYPASS GRAFT SNOMED Code(s): 291450954 (3) Hypertension Current Visit: Yes Status: Chronic Code(s): I10 - ESSENTIAL (PRIMARY) HYPERTENSION SNOMED Code(s): 63964489 (4) Hyperlipidemia Current Visit: Yes Status: Chronic Code(s): E78.5 - HYPERLIPIDEMIA, UNSPECIFIED SNOMED Code(s): 25563469 (5) Non-insulin dependent type 2 diabetes mellitus Current Visit: Yes Status: Chronic Code(s): E11.9 - TYPE 2 DIABETES MELLITUS WITHOUT COMPLICATIONS SNOMED Code(s): 48683287 (6) Ischemic cardiomyopathy Current Visit: Yes Status: Chronic Code(s): I25.5 - ISCHEMIC CARDIOMYOPATHY SNOMED Code(s): 745906998 (7) Tobacco dependence in remission Current Visit: No Status: Resolved Code(s): F17.201 - NICOTINE DEPENDENCE, UNSPECIFIED, IN REMISSION SNOMED Code(s): 505160514 (8) Family history of early CAD Current Visit: Yes Status: Chronic Code(s): Z82.49 - FAMILY HX OF ISCHEM HEART DIS AND OTH DIS OF THE CIRC SYS SNOMED Code(s): 858305630 (9) HIV positive Current Visit: Yes Status: Chronic Code(s): Z21 - ASYMPTOMATIC HUMAN IMMUNODEFICIENCY VIRUS INFECTION STATUS SNOMED Code(s): 417735108 Plan: The patient was seen and examined in the extended stay unit. Chart/diagnostics were reviewed. Will discuss the case in detail with Dr. Wilson. Would recommend continuing maximal medical therapy with aspirin, statin, beta anne , Aldactone, ARB. Encourage continued smoking cessation. Encourage continued compliance with medical treatment. More recommendations to follow. Thank you Dr. Leonard for this consult. We will review his films and discuss our recommendations with you. Time with Patient: Greater than 30
[2018-03-24 14:40] LABS: Glucose,Whole Blood 138 mg/dL (75-99)
--- NOTE | 2018-03-24 16:20 | CC ---
CARDIAC CATHETERIZATION REPORT DATE OF SERVICE: March 24, 2018 PERFORMING PHYSICIAN: Jimbo Leonard MD, air force senior officer. PROCEDURE PERFORMED: 1. Selective left and right coronary angiogram. 2. SVG to LAD angiogram. 3. SVG to left circumflex angiogram. 4. SVG to RCA angiogram. 5. Left heart catheterization. 6. Left ventriculography. INDICATION: This is a pleasant 52-year-old gentleman with known history of coronary artery disease with the last heart catheterization was performed in 2016 showing severe triple-vessel coronary artery disease with severe triple-vessel coronary artery disease with occluded SVG to LAD and patent SVG to left circumflex as well as SVG to RCA, was recently experiencing chest discomfort. He underwent a myocardial perfusion imaging stress test and that revealed a large anterior myocardial scar with ischemia of moderate size and moderate intensity involving the infra septum area of the left ventricle. Because of that, a heart catheterization was recommended. APPROACH: Right common femoral artery. COMPLICATION: None. LEVEL OF SEDATION: Moderate with sedation length of 45 minutes. PROCEDURE DESCRIPTION: After obtaining an informed consent, the patient was brought to cardiac laborer [place]. The right common femoral artery was cannulated using micropuncture technique and a micropuncture wire passed easily. Then I placed a 6-Namibian sheath in the right common femoral artery. I did after that a selective left and right coronary angiogram. Selective left coronary angiogram was performed using JL3.5 5-Namibian catheter and selective right coronary angiogram was performed using JR4 6-Namibian catheter. SVG angiogram for the LAD, OM, and RCA were performed using the JR4 catheter. Left heart catheterization and left ventriculography were performed using 6-Namibian pigtail catheter. The procedure was completed without any complication. SELECTIVE CORONARY ANGIOGRAM: 1. The left main is a moderate caliber vessel. The left main has a tight lesion distally appeared to be in the range of 80%. It bifurcates into left circumflex and left anterior descending artery. 2. The LAD is 100% occluded from the ostium. 3. The left circumflex: The left circumflex has a tight lesion by the ostium as well as appeared to be in the range of 80%. Then it gives rise into the first OM branch which is a small to medium caliber vessel and second OM branch which is small caliber vessel with competitive flow was seen in the mid of it. The left circumflex continues after that as a small to medium caliber vessel in the AV groove. 4. The RCA: The RCA is a moderate to large caliber vessel. The proximal RCA has mild disease only. The mid RCA has mild disease only as well. The RCA distally appeared to have a critical and long tubular lesion in the range of 80-90 percent. It bifurcates into PDA and PLV branches both have mild disease only. The PDA and PLV branches are small caliber vessel. CORONARY BYPASS ANGIOGRAM: 1. SVG to LAD is occluded by the ostium. 2. The SVG to OM1 and OM2 is open with a tight lesion between OM1 and OM2 appeared to be in the range of 80-90 percent. 3. The SVG to right coronary artery is occluded. HEMODYNAMICS: The left ventricular end-diastolic pressure was only 8 mmHg and no gradient was identified across the aortic valve. Left ventriculography was performed in the SNIDER projection and using a power injection. Left ventricular systolic function is severely impaired with EF around 15% with dilated left ventricle and global hypokinesia more prominent in the anterior, apical, and inferoapical segment of the left ventricle. CONCLUSION: 1. Severe triple-vessel coronary artery disease. 2. Occluded SVG to LAD. 3. Severe disease involving the SVG to left circumflex. 4. Occluded SVG to right coronary artery. POSTPROCEDURE MANAGEMENT: I am going to consult the surgeon for the evaluation of redo CABG. If the patient turned to be high risk for surgery, I will consider doing a PCI of the left circumflex and possible PCI of the RCA with the adjunctive use of left ventricular assist device. MMODL / IJN: [id number] /
--- NOTE | 2018-03-24 16:29 | LTR ---
March 24, [address] Cota: Mr. Sandip Munson underwent today a heart catheterization for intermittent episodes of chest discomfort as well as abnormal myocardial perfusion imaging stress test. The heart catheterization showed severe triple-vessel coronary artery disease with the occlusion to graft and severe lesion involving the 3rd graft. Putting everything together, I am going to consult surgeon for the evaluation of redo CABG. If the patient turned to be high risk for surgeon, I will consider doing a PCI of the SVG to left circumflex with adjunctive use of left ventricular assist device. I want to thank you for allowing me to participate in his care and please do not hesitate to call if you have any question or concern. MMODL / IJN: [id number] /
[2018-03-24 17:46] LABS: Glucose,Whole Blood 302 mg/dL (75-99)
[2018-03-24 20:17] LABS: Glucose,Whole Blood 337 mg/dL (75-99)
[2018-03-24 21:45] LABS: Magnesium 1.7 mg/dL (1.6-2.3); Potassium 5.2 mmol/L (3.5-5.1)
[2018-03-24] MEDS: INSULIN ASPART 100 UNIT/ML 1 ML 10 ML VIAL SQ SCH (22:25)
[2018-03-24] MEDS ORDERED: HYDROcodone/APAP 7.5-325MG 1 EACH TAB PO PRN (22:39)
[2018-03-24] MEDS ORDERED: ALPRAZolam 1 MG TAB PO PRN (22:39)
[2018-03-24 23:29] LABS: Glucose,Whole Blood 276 mg/dL (75-99)
[2018-03-25 07:11] LABS: Glucose,Whole Blood 146 mg/dL (75-99)
[2018-03-25] MEDS ORDERED: INSULIN ASPART 100 UNIT/ML 1 ML 10 ML VIAL SQ SCH (07:30)
[2018-03-25] MEDS: INSULIN ASPART 100 UNIT/ML 1 ML 10 ML VIAL SQ SCH (08:32)
[2018-03-25 08:55] VITALS: RESP 18
[2018-03-25 12:09] VITALS: BP 115/74; PULSE 76; TEMP 98.3
--- NOTE | 2018-03-25 15:54 | DS ---
DISCHARGE SUMMARY ADMISSION DATE: March 24, 2018. DISCHARGE DATE: March 25, 2018 BRIEF HISTORY: This is a very pleasant 52-year-old gentleman who was experiencing symptoms of chest discomfort and underwent a myocardial perfusion imaging that came in to be abnormal. He underwent heart catheterization yesterday and that showed severe triple-vessel coronary artery disease with the occlusion of the SVG to LAD, SVG to RCA, and severe disease involving the SVG to left circumflex. I did consult surgeon for the evaluation of redo CABG and the patient was turned to be high risk and percutaneous coronary intervention of the left circumflex is recommended. The patient is going to be discharged home. I will follow up with him in the office. I will discuss with him the options of revascularization again. The right groin is soft and nontender and without any bruises. MMODL / IJN: [id number] /
[2018-03-25 16:09] LABS: Hemoglobin A1C 11.7 % (4.0-6.0)
== END 2018-03-25 12:20 | disposition home or self-care (01) ==
LOC: CATHCVL 10:59 → 3OBS 13:02 → CATHCVL 03-25 12:20
PROVIDERS: ATTEND Internal Medicine Interventional Cardiology
DX: I25.710 Atherosclerosis of autologous vein coronary artery bypass graft(s) with unstable angina pectoris (principal); I25.82 Chronic total occlusion of coronary artery; I10 Essential (primary) hypertension; Z87.891 Personal history of nicotine dependence; I25.5 Ischemic cardiomyopathy; I25.2 Old myocardial infarction; B20 Human immunodeficiency virus [HIV] disease; E78.5 Hyperlipidemia, unspecified; E11.9 Type 2 diabetes mellitus without complications; Z79.84 Long term (current) use of oral hypoglycemic drugs; K21.9 Gastro-esophageal reflux disease without esophagitis; G89.29 Other chronic pain; M54.5 Low back pain; Z82.49 Family history of ischemic heart disease and other diseases of the circulatory system; Z79.2 Long term (current) use of antibiotics; Z79.82 Long term (current) use of aspirin; Z79.899 Other long term (current) drug therapy
CPT/HCPCS: 93459; 83735; 84132 ×2; 83036; C1769; J2250; J2001; J3010; Q9967

== ENCOUNTER 2018-04-19 08:45 | Inpatient (IN) | payer MEDICARE, OTHER ==
[2018-04-13 15:55] VITALS: BMI 22.4
[~2018-04-19 08:45] MED LIST changes: -ASPIRIN 325 MG TAB PO ONE; -NITROGLYCERIN SL TABS 0.4 MG TAB SUBLINGUAL PRN
[2018-04-19] MEDS ORDERED: INSULIN ASPART 100 UNIT/ML 1 ML 10 ML VIAL SQ ONE (09:58)
[2018-04-19] MEDS ORDERED: IV FLUID CONTINUATION 950 ML IV ONE (10:00)
[2018-04-19 10:10] LABS: Glucose,Whole Blood 322 mg/dL (75-99)
[2018-04-19 10:13] LABS: Calcium 9.4 mg/dL (8.4-10.2); Potassium 5.4 mmol/L (3.5-5.1)
[2018-04-19] MEDS ORDERED: LIDOCAINE 1% INJ 10MG/ML (20 ML MDV) ONE ×2 (10:15→11:12)
[2018-04-19] MEDS ORDERED: MIDAZOLAM 2 MG/2 ML VIAL ONE ×2 (10:16→11:25)
[2018-04-19] MEDS ORDERED: HEPARIN SODIUM 1,000 UN/ML (10ML VL) ONE (10:36)
[2018-04-19] MEDS: MIDAZOLAM 2 MG/2 ML VIAL IV ONE ×2 (10:54→11:05)
[2018-04-19] MEDS ORDERED: fentaNYL (PF) 50 MCG/ML 2 ML AMP ONE (10:58)
[2018-04-19] MEDS ORDERED: LIDOCAINE 1% INJ 10MG/ML (20 ML MDV) SQ ONE (10:58)
[2018-04-19] MEDS ORDERED: fentaNYL (PF) 50 MCG/ML 2 ML AMP IV ONE ×2 (11:00)
[2018-04-19] MEDS ORDERED: TICAGRELOR 90 MG TAB ONE (11:20)
[2018-04-19] MEDS ORDERED: TICAGRELOR 90 MG TAB PO ONE (11:23)
[2018-04-19] MEDS ORDERED: MIDAZOLAM 2 MG/2 ML VIAL IV ONE (11:28)
[2018-04-19] MEDS: niCARdipine Syringe (1,000 mcg/10 mL) INTRACORON ONE ×2 (11:31→11:37)
[2018-04-19] MEDS ORDERED: IOPAMIDOL-370 125ML BTL INJ ONE (11:42)
[2018-04-19] MEDS ORDERED: ALPRAZolam 1 MG TAB PO PRN (11:54)
[2018-04-19] MEDS ORDERED: NITROGLYCERIN SL TABS 0.4 MG TAB SUBLINGUAL PRN ×2 (11:54→11:55)
[2018-04-19] MEDS ORDERED: MAG HYDROX/AL HYDROX/SIMETH 30 ML CUP PO PRN (11:55)
[2018-04-19] MEDS ORDERED: RX INFO: IV CONTRAST WAS GIVEN 1 EACH MISC MISCELLANE PRN (11:55)
[2018-04-19] MEDS ORDERED: ATROPINE SULFATE 0.1 MG/ML 10ML SYRINGE IV PRN (11:55)
[2018-04-19] MEDS ORDERED: ZOLPIDEM 5 MG TAB PO PRN (11:55)
[2018-04-19] MEDS ORDERED: SODIUM CHLORIDE 0.9% 1,000 ML IV SCH (12:00)
[2018-04-19 12:16] LABS: Glucose,Whole Blood 170 mg/dL (75-99)
[2018-04-19] MEDS: HYDROcodone/APAP 7.5-325MG 1 EACH TAB PO PRN ×2 (12:44→23:12)
--- NOTE | 2018-04-19 12:46 | LTR ---
April 19, 2018 Re: Sandip Munson Dear Dr. Cota: Mr. Sandip Munson underwent successful stenting of the left circumflex coronary artery with good angiographic results and without any complication. Thank you for allowing me to participate in his care and please do not hesitate to call if you have any question or concern. Sincerely, MD TI Lee / LORENZA: [id number] /
--- NOTE | 2018-04-19 13:10 | PTCA ---
PERCUTANEOUSTRANS CORORONARY ANGIOGRAPHY DATE OF SERVICE: April 19, 2018 PERFORMING PHYSICIAN: Jimbo Leonard MD, electrical technician. PROCEDURE PERFORMED: 1. Selective bilateral femoral artery angiogram. 2. Successful placement of Impella in the left ventricle. 3. Successful direct stenting of the SVG to OM using 3.5 x 18 mm Xience AYLIN with good angiographic results. INDICATION: This is a pleasant 53-year-old gentleman with known history of coronary artery disease and status post coronary artery bypass grafting who was experiencing chest discomfort concerning for angina. He does have severe cardiomyopathy as well. He underwent coronary angiogram few weeks ago and that revealed severe triple-vessel coronary artery disease with severe disease involving the SVG to OM, that SVG to OM was his lifeline. He was seen and evaluated by cardiothoracic surgeon for redo CABG and he was turned down from the surgical standpoint. Because of that, we decided to pursue with an intervention on the SVG to OM. APPROACH: Right and left common femoral artery. COMPLICATION: None. LEVEL OF SEDATION: Moderate with a sedation length of 50 minutes. PROCEDURE DESCRIPTION: After obtaining an informed consent, the patient was brought to the cardiac drop crew laborer. The right common femoral artery was cannulated using micropuncture technique, I placed a micropuncture sheath in the right common femoral artery then I did selective right common femoral artery angiogram to prove that access was in the right spot. After that, I did deploy 2 Perclose at 10 and 2 o'clock. After that, I upgraded my sheath into a 13-Greek sheath. Then I did access the left common femoral artery using micropuncture technique, the micropuncture wire passed easily then I placed a 6-Greek sheath in the left common femoral artery. After that I did place an Impella in the left ventricle after I crossed the left ventricle using 6-Greek pigtail catheter with 0.035 wire then I did exchange my 0.035 wire into 0.018 Impella wire before I advanced the Impella over the 0.018 wire. After that, anticoagulation was initiated using heparin. Subsequently I did engage the SVG to OM using JR4 guide. A whisper wire was used to wire that SVG to OM, then I did direct stenting using 3.5 x 18 mm Xience AYLIN where the stent was positioned under fluoroscopy guidance and deployed under its nominal pressure. The following angiogram showed good angiographic results and the procedure was completed without any complication. POSTPROCEDURE MANAGEMENT: 1. Dual antiplatelet therapy. 2. Risk factor modifications. 3. Aggressive cholesterol control. 4. Follow up with the patient. TI / LORENZA: [id number] /
[2018-04-19] MEDS ORDERED: MORPHINE SULFATE 2 MG/ML SYRINGE IVP PRN (16:17)
[2018-04-19 17:08] LABS: Glucose,Whole Blood 187 mg/dL (75-99)
[2018-04-19] MEDS: INSULIN ASPART 100 UNIT/ML 1 ML 10 ML VIAL SQ SCH ×2 (17:36→20:22)
[2018-04-19 20:00] LABS: Glucose,Whole Blood 272 mg/dL (75-99)
[2018-04-19] MEDS: GABAPENTIN 300 MG CAP PO SCH (20:22)
[2018-04-19] MEDS: TICAGRELOR 90 MG TAB PO SCH (20:22)
[2018-04-19] MEDS ORDERED: ATORVASTATIN 80 MG TAB PO SCH (21:00)
[2018-04-20 04:26] LABS: Basophils % (A) 0 %; Eosinophils # (A) 0.1 k/uL (0-0.7); Eosinophils % (A) 2 %; HCT 35.6 % (39.0-53.0); HGB 11.7 gm/dL (13.0-17.5); Lymphocytes # (A) 1.2 k/uL (1.0-4.8); Lymphocytes % (A) 29 %; MCH 31.5 pg (25.0-35.0); MCHC 32.9 g/dL (31.0-37.0); MCV 95.5 fL (80.0-100.0); Mean Platelet Volume 7.8; Monocytes # (A) 0.3 k/uL (0-1.0); Monocytes % (A) 7 %; Neutrophils # (A) 2.5 k/uL (1.3-7.7); Neutrophils % (A) 60 %; Platelet Count 110 k/uL (150-450); RBC 3.72 m/uL (4.30-5.90); RDW 13.3 % (11.5-15.5); WBC 4.2 k/uL (3.8-10.6)
[2018-04-20 04:29] LABS: Calcium 9.1 mg/dL (8.4-10.2); Potassium 4.6 mmol/L (3.5-5.1)
[2018-04-20 07:11] LABS: Glucose,Whole Blood 279 mg/dL (75-99)
[2018-04-20] MEDS ORDERED: PANTOPRAZOLE 40 MG TABLET PO SCH (07:30)
[2018-04-20] MEDS: TICAGRELOR 90 MG TAB PO SCH (07:56)
[2018-04-20] MEDS: INSULIN ASPART 100 UNIT/ML 1 ML 10 ML VIAL SQ SCH ×2 (07:56→12:26)
[2018-04-20] MEDS: GABAPENTIN 300 MG CAP PO SCH (07:56)
[2018-04-20 08:08] VITALS: TEMP 98.5
[2018-04-20] MEDS ORDERED: ASPIRIN 81 MG PO SCH (09:00)
[2018-04-20] MEDS ORDERED: [UNRECOGNIZED DRUG - OTHER] PO SCH (09:00)
[2018-04-20] MEDS ORDERED: SPIRONOLACTONE 25 MG TAB PO SCH (09:00)
[2018-04-20] MEDS ORDERED: LOSARTAN 50 MG TAB PO SCH (09:00)
[2018-04-20 10:09] VITALS: BP 144/86
--- NOTE | 2018-04-20 10:14 | DS ---
DISCHARGE SUMMARY ADMISSION DATE: 04/19/2018. DISCHARGE DATE: 04/20/2018 BRIEF HISTORY: This is a pleasant 53-year-old gentleman with known history of severe underlying coronary artery disease and prior coronary artery bypass grafting who was admitted to the hospital yesterday and underwent successful stenting of the SVG to left circumflex with adjunctive use of Impella. The patient is overall feeling better. Denies having any chest pain or discomfort. Both groins are soft and nontender and without any bruises. The patient is going to be discharged home on dual antiplatelet therapy and I will follow up with him in the office in a week. MMODL / IJN: [id number] /
[2018-04-20 11:59] LABS: Glucose,Whole Blood 224 mg/dL (75-99)
[2018-04-20 12:28] VITALS: PULSE 91; RESP 16
[2018-04-20 15:17] LABS: Hemoglobin A1C 11.8 % (4.0-6.0)
== END 2018-04-20 12:57 | disposition home or self-care (01) | DRG 215 ==
LOC: 2ORMAIN 08:45 → EDSTATUS 10:30 → 6ICU 11:40
PROVIDERS: ADMIT Internal Medicine Interventional Cardiology; ATTEND Internal Medicine Interventional Cardiology
PROC: 5A0221D Assistance with Cardiac Output using Impeller Pump, Continuous (ICD-10-PCS; 2018-04-19)
PROC: 027034Z Dilation of Coronary Artery, One Artery with Drug-eluting Intraluminal Device, Percutaneous Approach (ICD-10-PCS; principal; 2018-04-19 10:00)
PROC: 02HA3RZ Insertion of Short-term External Heart Assist System into Heart, Percutaneous Approach (ICD-10-PCS; 2018-04-19 10:00)
DX: I25.810 Atherosclerosis of coronary artery bypass graft(s) without angina pectoris (principal); I42.9 Cardiomyopathy, unspecified
CPT/HCPCS: 80048; 83036; 85025; 85347; C1874

== ENCOUNTER → 2018-05-28 | Outpatient (CLI) | payer MEDICARE, OTHER ==
[2018-05-28 17:38] LABS: Basophils % (A) 0 %; Eosinophils # (A) 0.1 k/uL (0-0.7); Eosinophils % (A) 2 %; HCT 37.9 % (39.0-53.0); HGB 12.1 gm/dL (13.0-17.5); Hypochromasia Slight; Lymphocytes # (A) 1.6 k/uL (1.0-4.8); Lymphocytes % (A) 37 %; MCH 31.6 pg (25.0-35.0); MCHC 31.9 g/dL (31.0-37.0); Mean Platelet Volume 7.9; Monocytes # (A) 0.3 k/uL (0-1.0); Monocytes % (A) 7 %; Neutrophils # (A) 2.2 k/uL (1.3-7.7); Neutrophils % (A) 50 %; RBC 3.83 m/uL (4.30-5.90); WBC 4.4 k/uL (3.8-10.6)
[2018-05-28 17:42] LABS: Platelet Count 168 k/uL (150-450)
[2018-05-29 02:24] LABS: Albumin 4.5 g/dL (3.80-4.90); Albumin/Globulin Ratio 2.05 (1.20-2.10); Anion Gap 7.1 mmol/L (4.00-12.00); Calcium 9.5 mg/dL (8.7-10.3); Carbon Dioxide 26.9 mmol/L (21.6-31.8); Globulin 2.2 g/dL (2.1-3.7); Potassium 4.7 mmol/L (3.5-5.5); Total Bilirubin 0.5 mg/dL (0.2-1.2); Total Protein 6.7 g/dL (6.2-8.2)
[2018-05-29 13:47] LABS: T4/T8 Ratio (CD4:CD8) 0.4 (1.0-3.7)
[2018-05-31 15:03] LABS: HIV-1 RNA DETECTED (Not detected); HIV-1 RNA, Quant <40 Copies/mL (<40)
== END | disposition home or self-care (01) ==
LOC: LABWHC1 16:32
PROVIDERS: ATTEND Internal Medicine Infectious Disease
DX: B20 Human immunodeficiency virus [HIV] disease (principal)
CPT/HCPCS: 36415; 80053; 85025; 86360; 87536

== ENCOUNTER → 2018-08-16 | Outpatient (CLI) | payer MEDICARE, OTHER ==
[2018-08-16 11:29] LABS: Albumin 4.1 g/dL (3.80-4.90); Albumin/Globulin Ratio 1.86 (1.20-2.10); Anion Gap 10.3 mmol/L (4.00-12.00); Calcium 9.7 mg/dL (8.7-10.3); Carbon Dioxide 20.7 mmol/L (21.6-31.8); Globulin 2.2 g/dL (1.6-3.3); Potassium 5.1 mmol/L (3.5-5.5); Total Bilirubin 0.5 mg/dL (0.3-1.2); Total Protein 6.3 g/dL (6.2-8.2)
[2018-08-16 12:47] LABS: Hemoglobin A1C 15.5 % (4.0-6.0)
== END ==
LOC: LABWHC1 06:41
PROVIDERS: ATTEND Internal Medicine Endocrinology, Diabetes & Metabolism
DX: E11.65 Type 2 diabetes mellitus with hyperglycemia (principal)
CPT/HCPCS: 36415; 80053; 83036; 83519; 84681

== ENCOUNTER → 2018-08-30 | Outpatient (CLI) | payer MEDICARE, OTHER ==
[2018-08-30 07:53] LABS: Basophils % (A) 0 %; Eosinophils # (A) 0.1 k/uL (0-0.7); Eosinophils % (A) 3 %; HCT 35.9 % (39.0-53.0); HGB 11.4 gm/dL (13.0-17.5); Hypochromasia Slight; Lymphocytes # (A) 1.2 k/uL (1.0-4.8); Lymphocytes % (A) 32 %; MCH 31.1 pg (25.0-35.0); MCHC 31.9 g/dL (31.0-37.0); MCV 97.6 fL (80.0-100.0); Mean Platelet Volume 7.1; Monocytes # (A) 0.3 k/uL (0-1.0); Monocytes % (A) 7 %; Neutrophils # (A) 2.1 k/uL (1.3-7.7); Neutrophils % (A) 54 %; Platelet Count 130 k/uL (150-450); RBC 3.67 m/uL (4.30-5.90); RDW 14.2 % (11.5-15.5); WBC 3.9 k/uL (3.8-10.6)
[2018-08-30 11:17] LABS: Anion Gap 7.1 mmol/L (4.00-12.00); Carbon Dioxide 26.9 mmol/L (21.6-31.8); Potassium 4.8 mmol/L (3.5-5.5)
[2018-08-30 11:18] LABS: Albumin/Globulin Ratio 1.9 (1.60-3.17); Calcium 9.3 mg/dL (8.7-10.3); Globulin 2.1 g/dL (1.6-3.3); LDL Cholesterol,Calculated 38.8 mg/dL (0.0-131.0); Total Bilirubin 0.4 mg/dL (0.2-1.2); Total Protein 6.1 g/dL (6.2-8.2); VLDL Calculation 19.2 mg/dL (5.00-40.00)
[2018-08-31 13:20] LABS: HIV-1 RNA Not detected (Not detected); HIV-1 RNA, Quant <40 Copies/mL (<40)
== END ==
LOC: LABWHC1 06:53
PROVIDERS: ATTEND Internal Medicine Infectious Disease
DX: B20 Human immunodeficiency virus [HIV] disease (principal)
CPT/HCPCS: 36415; 80053; 80061; 85025; 87536

== ENCOUNTER → 2018-12-07 | Outpatient (CLI) | payer MEDICARE, OTHER ==
[2018-12-07 11:54] LABS: Albumin 4.3 g/dL (3.80-4.90); Albumin/Globulin Ratio 1.95 (1.60-3.17); Anion Gap 5.2 mmol/L (4.00-12.00); Calcium 9.3 mg/dL (8.7-10.3); Carbon Dioxide 24.8 mmol/L (21.6-31.8); Globulin 2.2 g/dL (1.6-3.3); LDL Cholesterol,Calculated 54.2 mg/dL (0.0-131.0); Potassium 4.6 mmol/L (3.5-5.5); Total Bilirubin 0.5 mg/dL (0.2-1.2); Total Protein 6.5 g/dL (6.2-8.2); VLDL Calculation 12.8 mg/dL (5.00-40.00)
== END | disposition home or self-care (01) ==
LOC: LABWHC1 06:37
PROVIDERS: ATTEND Internal Medicine Endocrinology, Diabetes & Metabolism
DX: E10.65 Type 1 diabetes mellitus with hyperglycemia (principal)
CPT/HCPCS: 36415; 80053; 80061

== ENCOUNTER → 2019-03-14 | Outpatient (CLI) | payer MEDICARE, OTHER ==
[2019-03-14 12:17] LABS: Chol/HDL Ratio 1.92; LDL Cholesterol,Calculated 29.2 mg/dL (0.0-131.0); VLDL Calculation 14.8 mg/dL (5.00-40.00)
== END | disposition home or self-care (01) ==
LOC: LABWHC1 07:10
PROVIDERS: ATTEND Internal Medicine Interventional Cardiology
DX: E78.2 Mixed hyperlipidemia (principal)
CPT/HCPCS: 36415; 80061; 84450; 84460

== ENCOUNTER 2019-04-23 13:36 | Inpatient (IN) | payer MEDICARE, OTHER ==
[2019-04-23] MEDS ORDERED: IV FLUID CONTINUATION 1,000 ML IV ONE (13:38)
[2019-04-23] MEDS ORDERED: NITROGLYCERIN OINT 1 INCH/GM PACKET TOPICAL STA (13:43)
[2019-04-23] MEDS ORDERED: ASPIRIN 300 MG SUPP RECTAL STA (13:43)
[2019-04-23] MEDS ORDERED: LORazepam 2 MG/ML INJ IV STA (13:44)
[2019-04-23] MEDS ORDERED: HEPARIN SODIUM,PORCINE 5,000 UNIT/ML 1 ML VIAL IV ONE (13:44)
[2019-04-23] MEDS: HEPARIN SOD,PORK IN 0.45% NACL 25,000 UNIT in 0.45% NACL 1 250ML.BAG IV SCH (13:50)
[2019-04-23 13:52] LABS: Glucose,Whole Blood 243 mg/dL (75-99)
--- NOTE | 2019-04-23 13:53 | ED ---
General Adult HPI - General Chief complaint: Cardiac Arrest/CPR Stated complaint: Cardiac Arrest Time Seen by Provider: 04/23/19 13:36 Source: EMS, RN notes reviewed Mode of arrival: EMS Limitations: altered mental status - History of Present Illness Initial comments: This is a 54-year-old male who presents emergency Department after friends found him down in the backyard. Fire department got there. An AED on the patient and it is advised for shock they did shock him after that the patient's pulses returned EMS gave the patient amiodarone 150 mg. Patient is unable to give any history himself. Patient does have a history of heroin abuse in the past. Patient also has diabetes hypertension high cholesterol as well as an TX in the past he does have a sternotomy scar. Patient was intubated in the field. - Related Data Home Medications Medication Instructions Recorded Confirmed Olmesartan Medoxomil [Benicar] 40 mg PO DAILY 04/23/14 04/23/19 Esomeprazole Magnesium [NexIUM] 40 mg PO DAILY 05/29/14 04/23/19 ALPRAZolam [Xanax] 2 mg PO BID PRN 10/03/16 04/23/19 Atorvastatin [Lipitor] 80 mg PO HS 10/03/16 04/23/19 Albuterol Inhaler [Ventolin Hfa 1 - 2 puff INHALATION RT-Q6H PRN 03/19/18 04/23/19 Inhaler] Aspirin 325 mg PO DAILY 03/19/18 04/23/19 Bictegrav/Emtricit/Tenofov Ala 1 tab PO DAILY 03/19/18 04/23/19 [Biktarvy 50-200-25 mg Tablet] Nitroglycerin Sl Tabs [Nitrostat] 0.4 mg SUBLINGUAL Q5M PRN 03/19/18 04/23/19 Insulin Glargine,Hum.rec.anlog 30 units SQ DAILY 09/14/18 04/23/19 [Basaglar Kwikpen U-100] Amitriptyline HCl [Elavil] 50 mg PO HS 04/23/19 04/23/19 Fluconazole [Diflucan] 100 mg PO DAILY 04/23/19 04/23/19 HYDROcodone/APAP 10-325MG [[place] 1 tab PO Q6HR PRN 04/23/19 04/23/19 10-325] Metoprolol Tartrate [Lopressor] 25 mg PO BID 04/23/19 04/23/19 Multivitamins, Thera [Multivitamin 1 tab PO DAILY 04/23/19 04/23/19 (formulary)] Previous Rx's Medication Instructions Recorded Ticagrelor [Brilinta] 90 mg PO BID #180 tab 04/20/18 Allergies Allergy/AdvReac Type Severity Reaction Status Date / Time No Known Allergies Allergy Verified 04/23/19 14:28 Review of Systems ROS Statement: Those systems with pertinent positive or pertinent negative responses have been documented in the HPI. ROS Other: All systems not noted in ROS Statement are negative. Past Medical History Past Medical History: Asthma, Chest Pain / Angina, Diabetes Mellitus, GERD/Reflux, Hyperlipidemia, Hypertension, Myocardial Infarction (TX), Osteoarthritis (OA) Additional Past Medical History / Comment(s): HIV, chronic low back pain Last Myocardial Infarction Date:: 2005 History of Any Multi-Drug Resistant Organisms: None Reported Past Surgical History: Coronary Bypass/CABG, Heart Catheterization Additional Past Surgical History / Comment(s): apoorva carpal tunnel, CABG 4 VESSEL- 2006 Past Anesthesia/Blood Transfusion Reactions: No Reported Reaction Past Psychological History: Anxiety Smoking Status: Former smoker Past Alcohol Use History: Unable to Obtain Past Drug Use History: Unable to Obtain - Past Family History Sister(s) Family Medical History: Coronary Artery Disease (CAD) Father Family Medical History: Cancer Additional Family Medical History / Comment(s): THROAT Mother Family Medical History: Cancer General Exam - General Exam Comments Initial Comments: GENERAL: Patient is well-developed and well-nourished. Patient is nontoxic and well- hydrated. Patient is intubated currently is not able to converse or indicates anything to us at this time. ENT: Neck is soft and supple. No significant lymphadenopathy is noted. Oropharynx is clear. Moist mucous membranes. Neck has full range of motion without eliciting any pain. EYES: The sclera were anicteric and conjunctiva were pink and moist. PULMONARY: Good breath sounds bilaterally. Patient was being bagged at this time but was breathing over the bagging occasionally CARDIOVASCULAR: There is a regular rate and rhythm without any murmurs gallops or rubs. ABDOMEN: Soft and nontender with normal bowel sounds. SKIN: Skin is clear with no lesions or rashes and otherwise unremarkable. NEUROLOGIC: Patient remains unresponsive. MUSCULOSKELETAL: Normal extremities with adequate strength and full range of motion. LYMPHATICS: No significant lymphadenopathy is noted PSYCHIATRIC: Unable to assess. Limitations: altered mental status Course Vital Signs 04/23/19 04/23/19 04/23/19 13:37 13:39 13:40 Temperature Pulse Rate 109 H 111 H 105 H Respiratory 25 H 18 20 Rate Blood Pressure O2 Sat by Pulse 90 L 98 80 L Oximetry 04/23/19 04/23/19 04/23/19 13:50 14:00 14:10 Temperature 97 F L Pulse Rate 95 85 81 Respiratory 20 16 20 Rate Blood Pressure 145/117 122/89 117/87 O2 Sat by Pulse 100 100 100 Oximetry 04/23/19 14:20 Temperature Pulse Rate 77 Respiratory 20 Rate Blood Pressure 107/78 O2 Sat by Pulse 100 Oximetry Medical Decision Making - Medical Decision Making EKG shows normal sinus rhythm at 96 bpm ID interval 170 QRS is under a QT interval 362 QTC is 457. Patient's EKG shows ST segment elevation in V2 V3 and T-wave inversions in leads V5 and V6 1 and aVL. After received EKG I called and spoke with Dr. Treviño at 140 pm and he did not want to call a STEMI overhead since he was already in house with the cath team and he was about to start a procedure he stated as soon as the procedures done he will be down into the emergency department. Patient received rectal aspirin as well as Nitropaste and heparin. Dr. Treviño arrived to the emergency department at 205. Dr. Treviño determined to take the patient to the Regulator Assembler. Chest x-ray shows good ET tube placement no other acute abnormality noted I admitted the patient is sound physician's - Lab Data Result diagrams: 04/23/19 13:45 04/23/19 13:45 Lab Results 04/23/19 04/23/19 04/23/19 Range/Units 13:45 13:45 13:45 WBC 8.0 (3.8-10.6) k/uL RBC 3.77 L (4.30-5.90) m/uL Hgb 12.6 L (13.0-17.5) gm/dL Hct 37.8 L (39.0-53.0) % MCV 100.1 H (80.0-100.0) fL MCH 33.4 (25.0-35.0) pg MCHC 33.3 (31.0-37.0) g/dL RDW 12.9 (11.5-15.5) % Plt Count 199 (150-450) k/uL Neutrophils % (Manual) 30 % Lymphocytes % (Manual) 59 % Monocytes % (Manual) 8 % Eosinophils % (Manual) 3 % Neutrophils # (Manual) 2.40 (1.3-7.7) k/uL Lymphocytes # (Manual) 4.72 (1.0-4.8) k/uL Monocytes # (Manual) 0.64 (0-1.0) k/uL Eosinophils # (Manual) 0.24 (0-0.7) k/uL Nucleated RBCs 0 (0-0) /100 WBC Manual Slide Review Performed Poikilocytosis (manual Present PT 11.3 (9.0-12.0) sec INR 1.1 (<1.2) APTT 20.8 L (22.0-30.0) sec Sample Site ABG pH (7.35-7.45) ABG pCO2 (35-45) mmHg ABG pO2 (83-108) mmHg ABG HCO3 (21-25) mmol/L ABG Total CO2 (19-24) mmol/L ABG O2 Saturation (94-97) % ABG Base Excess mmol/L Jono Test FiO2 % Sodium 139 (137-145) mmol/L Potassium 4.8 (3.5-5.1) mmol/L Chloride 107 (98-107) mmol/L Carbon Dioxide 16 L (22-30) mmol/L Anion Gap 16 mmol/L BUN 28 H (9-20) mg/dL Creatinine 1.86 H (0.66-1.25) mg/dL Est GFR (CKD-EPI)AfAm 46 (>60 ml/min/1.73 sqM) Est GFR (CKD-EPI)NonAf 40 (>60 ml/min/1.73 sqM) Glucose 241 H (74-99) mg/dL POC Glucose (mg/dL) (75-99) mg/dL POC Glu Search Engine Optimizer ID Calcium 9.5 (8.4-10.2) mg/dL Magnesium 2.0 (1.6-2.3) mg/dL Total Bilirubin 0.6 (0.2-1.3) mg/dL AST 118 H (17-59) U/L ALT 104 H (21-72) U/L Alkaline Phosphatase 87 (38-126) U/L Total Protein 7.3 (6.3-8.2) g/dL Albumin 4.4 (3.5-5.0) g/dL Urine Opiates Screen (NotDetected) Ur Oxycodone Screen (NotDetected) Urine Methadone Screen (NotDetected) Ur Propoxyphene Screen (NotDetected) Ur Barbiturates Screen (NotDetected) U Tricyclic Antidepress (NotDetected) Ur Phencyclidine Scrn (NotDetected) Ur Amphetamines Screen (NotDetected) U Methamphetamines Scrn (NotDetected) U Benzodiazepines Scrn (NotDetected) Urine Cocaine Screen (NotDetected) U Marijuana (THC) Screen (NotDetected) 04/23/19 04/23/19 04/23/19 Range/Units 13:52 14:00 14:01 WBC (3.8-10.6) k/uL RBC (4.30-5.90) m/uL Hgb (13.0-17.5) gm/dL Hct (39.0-53.0) % MCV (80.0-100.0) fL MCH (25.0-35.0) pg MCHC (31.0-37.0) g/dL RDW (11.5-15.5) % Plt Count (150-450) k/uL Neutrophils % (Manual) % Lymphocytes % (Manual) % Monocytes % (Manual) % Eosinophils % (Manual) % Neutrophils # (Manual) (1.3-7.7) k/uL Lymphocytes # (Manual) (1.0-4.8) k/uL Monocytes # (Manual) (0-1.0) k/uL Eosinophils # (Manual) (0-0.7) k/uL Nucleated RBCs (0-0) /100 WBC Manual Slide Review Poikilocytosis (manual PT (9.0-12.0) sec INR (<1.2) APTT (22.0-30.0) sec Sample Site LRAD ABG pH 7.27 L (7.35-7.45) ABG pCO2 35 (35-45) mmHg ABG pO2 >400 H (83-108) mmHg ABG HCO3 16 L (21-25) mmol/L ABG Total CO2 17 L (19-24) mmol/L ABG O2 Saturation 99.6 H (94-97) % ABG Base Excess -10.6 mmol/L Jono Test Yes FiO2 100 % Sodium (137-145) mmol/L Potassium (3.5-5.1) mmol/L Chloride (98-107) mmol/L Carbon Dioxide (22-30) mmol/L Anion Gap mmol/L BUN (9-20) mg/dL Creatinine (0.66-1.25) mg/dL Est GFR (CKD-EPI)AfAm (>60 ml/min/1.73 sqM) Est GFR (CKD-EPI)NonAf (>60 ml/min/1.73 sqM) Glucose (74-99) mg/dL POC Glucose (mg/dL) 243 H (75-99) mg/dL POC Glu Search Engine Optimizer ID Chapis Altman Calcium (8.4-10.2) mg/dL Magnesium (1.6-2.3) mg/dL Total Bilirubin (0.2-1.3) mg/dL AST (17-59) U/L ALT (21-72) U/L Alkaline Phosphatase (38-126) U/L Total Protein (6.3-8.2) g/dL Albumin (3.5-5.0) g/dL Urine Opiates Screen Detected H (NotDetected) Ur Oxycodone Screen Not Detected (NotDetected) Urine Methadone Screen Not Detected (NotDetected) Ur Propoxyphene Screen Not Detected (NotDetected) Ur Barbiturates Screen Not Detected (NotDetected) U Tricyclic Antidepress Detected H (NotDetected) Ur Phencyclidine Scrn Not Detected (NotDetected) Ur Amphetamines Screen Not Detected (NotDetected) U Methamphetamines Scrn Not Detected (NotDetected) U Benzodiazepines Scrn Not Detected (NotDetected) Urine Cocaine Screen Not Detected (NotDetected) U Marijuana (THC) Screen Detected H (NotDetected) Critical Care Time Critical Care Time: Yes Total Critical Care Time: 35 Disposition Clinical Impression: STEMI (ST elevation myocardial infarction) Disposition: ADMITTED IP TO THIS HOSP Referrals: None,Stated [Primary Care Provider] - 1-2 days Time of Disposition: 14:18
[2019-04-23 14:03] LABS: HCT 37.8 % (39.0-53.0); HGB 12.6 gm/dL (13.0-17.5); MCH 33.4 pg (25.0-35.0); MCHC 33.3 g/dL (31.0-37.0); MCV 100.1 fL (80.0-100.0); Mean Platelet Volume 6.6; Platelet Count 199 k/uL (150-450); RBC 3.77 m/uL (4.30-5.90); RDW 12.9 % (11.5-15.5)
[2019-04-23 14:04] LABS: ABG Base Excess -10.6 mmol/L; ABG HCO3 16 mmol/L (21-25); ABG Oxygen Saturation 99.6 % (94-97); ABG PCO2 35 mmHg (35-45); ABG PH 7.27 (7.35-7.45); ABG PO2 >400 mmHg (83-108); ABG TCO2 17 mmol/L (19-24); Allen Test Performed? Yes
[2019-04-23 14:18] LABS: Albumin 4.4 g/dL (3.5-5.0); Calcium 9.5 mg/dL (8.4-10.2); Potassium 4.8 mmol/L (3.5-5.1); Total Bilirubin 0.6 mg/dL (0.2-1.3); Total Protein 7.3 g/dL (6.3-8.2)
[2019-04-23 14:19] LABS: INR 1.1 (<1.2); Prothrombin Time 11.3 sec (9.0-12.0)
[2019-04-23 14:22] LABS: Partial Thromboplastin Time 20.8 sec (22.0-30.0)
[2019-04-23 14:24] LABS: Phencyclidine Screen,Urine Not Detected (NotDetected); Urn Cannabinoid Scrn Detected (NotDetected)
[2019-04-23 14:25] LABS: Amphetamine Screen,Urine Not Detected (NotDetected); Barbiturate Screen,Urine Not Detected (NotDetected); Benzodiazepines Screen,Urine Not Detected (NotDetected); Cocaine Screen,Urine Not Detected (NotDetected); Methadone Screen, Urine Not Detected (NotDetected); Opiate Screen,Urine Detected (NotDetected); Oxycodone Screen, Urine Not Detected (NotDetected); Tricyclic Antidepressant,Urine Detected (NotDetected)
--- NOTE | 2019-04-23 14:26 | XR ---
EXAMINATION TYPE: XR chest 1V DATE OF EXAM: 04/23/2019 COMPARISON: 07/10/2017 HISTORY: Cardiac arrest TECHNIQUE: Single frontal view of the chest is obtained. FINDINGS: Endotracheal tube is 3 cm from the jihan. There is minimal central pulmonary interstitial edema. There are sternal wires. There are chest leads. There is no pleural effusion. IMPRESSION: There is new minimal pulmonary edema compared to last exam that could be acute heart june lure.
[2019-04-23 14:28] LABS: Eosinophils # (M) 0.24 k/uL (0-0.7); Lymphocytes # (M) 4.72 k/uL (1.0-4.8); Monocytes # (M) 0.64 k/uL (0-1.0); Neutrophils % (M) 30 %; Nucleated Red Blood Cells 0 /100 WBC (0-0); Poikilocytosis (M) Present; Total Cells Counted 100
[2019-04-23] MEDS ORDERED: MORPHINE SULFATE 4 MG/ML SYRINGE IV ONE (14:55)
[2019-04-23] MEDS ORDERED: LIDOCAINE 1% INJ 10MG/ML (20 ML MDV) SQ ONE (14:56)
[2019-04-23] MEDS ORDERED: MORPHINE SULFATE 4 MG/ML SYRINGE ONE (14:57)
[2019-04-23] MEDS ORDERED: MIDAZOLAM PF (FBP) 2 MG/2 ML VIAL IV ONE (15:04)
[2019-04-23] MEDS ORDERED: fentaNYL (PF) 50 MCG/ML 2 ML AMP ONE (15:05)
[2019-04-23] MEDS ORDERED: fentaNYL (PF) 50 MCG/ML 2 ML AMP IV ONE (15:08)
[2019-04-23] MEDS ORDERED: IOPAMIDOL-370 125ML BTL INJ ONE (15:25)
[2019-04-23] MEDS ORDERED: RX INFO: IV CONTRAST WAS GIVEN 1 EACH MISC MISCELLANE PRN (15:40)
[2019-04-23] MEDS ORDERED: SODIUM CHLORIDE 0.9% 1,000 ML IV SCH (15:45)
[2019-04-23 15:59] LABS: Glucose,Whole Blood 221 mg/dL (75-99)
--- NOTE | 2019-04-23 16:06 | CONS ---
CONSULTATION Sandip Munson is a 54-year-old gentleman with a known history of CAD, prior bypass surgery and PCI, known LV dysfunction with ejection fraction of less than 25%. He also has hypertension, hyperlipidemia, and HIV as well. Years ago, he underwent aortocoronary bypass surgery with 3 vein graft to the LAD, circumflex and RCA. Over the years, both the RCA and LAD grafts were occluded. As recently as April 19, 2018, Dr. Leonard performed PTCA and stenting of the only patent graft and that was to the circumflex to both obtuse marginal 1 and 2 branches. This was performed with an Impella heart pump. Since then, the patient apparently has not been to the office. However, he was lifting a heavy object in the basement ? airconditioner part, then collapsed. his partner called 911. EMS was called. AED was placed, a single shock, revived the patient. He was brought to the emergency room. I saw him in the ER. He was unresponsive, on a vent, with pupils dilated. It is unclear what the down time was in this patient. However, the EKG does not suggest any acute ischemia. There is evidence of LVH and J-point prominence in precordial leads. I am recommending that we will proceed with intervention and proceed with cardiac catheterization and intervention based on the clinical history. Prognosis remains very poor because of poor ejection fraction and only single graft that is functioning, which is actually his lifeline. PAST MEDICAL HISTORY: 1. Patient is HIV positive. 2. CAD with prior bypass surgery and PCI as mentioned above. He has 3 vein grafts placed the LAD, RCA and circumflex. The LAD and RCA grafts are occluded. Circumflex graft was stented on April 19, 2018. 3. Hypertension. 4. Hyperlipidemia. 5. History of smoking and previous heroin use. MEDICATIONS: Medications at home include Brilinta 90 mg b.i.d., [place], atorvastatin 80 mg daily, Elavil 50 mg daily. He also takes medications for his HIV status. Aspirin 81 mg daily, Lopressor 25 mg b.i.d. and also insulin. Patient also has a type 2 diabetes mellitus. PHYSICAL EXAMINATION: On examination, blood pressure was 108/70, pulse rate was about 96 per minute. HEENT revealed the pupils are dilated and fixed. Neck is supple. I cannot hear a carotid bruit. Heart exam reveals S1, S2 without any significant gallops. There is a short systolic murmur audible. Lungs revealed ventilator assisted breaths sounds. Lower extremities reveal diminished pulses. Central nervous system assessment was not possible. IMPRESSION: 1. Cardiac arrest with possible ischemia or scar based ventricular tachycardia, resuscitated with AED shock. 2. Ischemic cardiomyopathy with a prior aortocoronary bypass surgery and PCI. Last PCI was April 19, 2018 with a circumflex stenting performed with Impella pump. 3. Hypertension. 4. Hyperlipidemia. 5. Type 2 diabetes mellitus. 6. History of HIV infection. RECOMMENDATION: I am recommending that we will take him to the laborer steel handling. The patient's only available associate was his boyfriend and partner and I spoke to him in the ER and I will proceed with the cath and PCI. Risks, benefits, options were explained. Prognosis remains poor. TI / JPN: [id number] / [email or web address]
--- NOTE | 2019-04-23 16:21 | CC ---
CARDIAC CATHETERIZATION REPORT DATE OF SERVICE: 04/23/2019 PROCEDURE: Left heart catheterization and coronary angiography. PERFORMED BY: Dr. Katyha Treviño. Moderate conscious sedation time was 21 minutes. CLINICAL INFORMATION: Mr. Sandip Munson is a 54-year-old gentleman who has history of CAD, prior bypass surgery and PCI. On April 19, 2018, he had PCI of the only patent vein graft to the circumflex by Dr. Leonard with the Impella support. Two other vein grafts to the LAD and RCA were occluded and there is diffuse disease the distal RCA, total occlusion of the circumflex, 80% distal left main disease. He presented with a cardiac arrest while mowing the lawn and was resuscitated. EKG did not reveal ST elevation, but there were T-wave prominence noted. He was advised cardiac catheterization after stabilizing him in the ER. PROCEDURE NOTE: Under local anesthesia and strict aseptic precautions, a 6-Tajik introducer was placed in the right femoral artery. Using standard Vesna catheters I performed coronary angiography and also did selective injection of the vein graft to the circumflex marginal. A pigtail catheter was used to check LV pressures. The catheters were taken out. Sheath was pulled. Manual compression used to secure hemostasis and he was sent to the room in stable condition. CARDIAC CATHETERIZATION FINDINGS: The left ventricular end-diastolic pressure was about 20 mmHg without any gradient across the aortic valve. CORONARY ANGIOGRAPHY FINDINGS: RIGHT CORONARY ARTERY: Dominant vessel, has distal subtotal occlusion with limited antegrade flow. There is at least 80% to 90% distal lesion, probably a recanalized vessel. LEFT MAIN CORONARY ARTERY: This vessel is 80% distal lesion, bifurcates into LAD and circumflex. LEFT ANTERIOR DESCENDING CORONARY ARTERY: Total occlusion after the origin of a septal branch, very limited antegrade flow. LEFT POSTERIOR CIRCUMFLEX CORONARY ARTERY: Diffusely diseased vessel. This has been previously bypassed. There is at least 50% to 70% stenosis in the circumflex in the entire vessel that is opacified. The patient had 2 occluded vein grafts. These were the graft to LAD and RCA. I performed selective coronary angiography of the vein graft that was stented on April 19, 2018. This graft is widely patent with good flow and remarkable opacification of both obtuse marginal 1 and 2. In the midportion of the body of the graft, there appears to be a 30% narrowing and also maybe some intrinsic dissection, but the flow is brisk with a KIRSTIE-3 and there is no significant stenosis. Left ventriculogram was not performed. FINAL IMPRESSION: This patient has a patent vein graft that was stented by Dr. Leonard with a distal 30% to 35% lesion, which may be some intrinsic dissection, but flow is excellent. Two other vein grafts to the LAD and RCA are occluded. The [place] vessel has severe diffuse disease. RECOMMENDATIONS: This patient had a cardiac arrest probably related to a scar based situation with ejection fraction of less than 25%. He will therefore be stabilized and if he stabilizes and does well neurologically he may require an ICD down the road. Discussed my thoughts in detail with the patient's boyfriend. MMODL / IJN: [id number] /
--- NOTE | 2019-04-23 16:29 | P.CNPUL ---
History of Present Illness Consult date: 04/23/19 Reason for consult: other (cardiac arrest, patient is on mechanical vent ilation.) Chief complaint: cardiac arrest History of present illness: this is a 54-year-old white male presents to the emergency room by EMS, patient had a witnessed cardiac arrest. The fire department responded to the call, initial rhythm was ventricular fibrillation, patient was shocked 1, and he was given amiodarone by EMS 150 mg IV push. Patient was intubated in the field, brought into the emergency room, and his EKG showed anterior ST elevation myocardial infarction. Patient underwent cardiac catheterization, however no intervention was felt to be necessary. Patient was found to have significant cardiac disease, and the only graft which was open was the one which was stented by Dr. Sun, this was stented about a year ago SVG to obtuse marginal. It was felt the patient could not be stented because of his diffuse coronary artery disease, and all other grafts were occluded.hence the patient was sent to the intensive care unit on mechanical ventilation, and I was asked to see him on consultation. Patient is known to have history of severe LV dysfunction, severe coronary artery disease and previous CABG, severe cardiomyopathy it was also felt in the past that his SVG to obtuse margin was his Lifeline.he was seen in the past by cardiac surgery, and he was not felt to be poor candidate for redo CABG.patient also had placement of impella device by Dr. Sun back in April of 2018.patient is now on mechanical ventilation, his ventilator settings are assist control rate of 14, tidal volume of 500, FiO2 100%, PEEP of 5, ABG is pending at the time of the dictation. Review of Systems ROS unobtainable: due to endotracheal tube Past Medical History Past Medical History: Asthma, Chest Pain / Angina, Diabetes Mellitus, GERD/Reflux, Hyperlipidemia, Hypertension, Myocardial Infarction ([place]), Osteoarthritis (OA) Additional Past Medical History / Comment(s): HIV, chronic low back pain Last Myocardial Infarction Date:: 2005 History of Any Multi-Drug Resistant Organisms: None Reported Past Surgical History: Coronary Bypass/CABG, Heart Catheterization Additional Past Surgical History / Comment(s): apoorva carpal tunnel, CABG 4 VESSEL- 2005 Past Anesthesia/Blood Transfusion Reactions: No Reported Reaction Past Psychological History: Anxiety Smoking Status: Former smoker Past Alcohol Use History: Unable to Obtain Past Drug Use History: Unable to Obtain - Past Family History Sister(s) Family Medical History: Coronary Artery Disease (CAD) Father Family Medical History: Cancer Additional Family Medical History / Comment(s): THROAT Mother Family Medical History: Cancer Medications and Allergies Home Medications Medication Instructions Recorded Confirmed Type Olmesartan Medoxomil [Benicar] 40 mg PO DAILY 04/23/14 04/23/19 History Esomeprazole Magnesium [NexIUM] 40 mg PO DAILY 05/29/14 04/23/19 History ALPRAZolam [Xanax] 2 mg PO BID PRN 10/03/16 04/23/19 History Atorvastatin [Lipitor] 80 mg PO HS 10/03/16 04/23/19 History Albuterol Inhaler [Ventolin Hfa 1 - 2 puff INHALATION RT-Q6H PRN 03/19/18 04/23/19 History Inhaler] Aspirin 325 mg PO DAILY 03/19/18 04/23/19 History Bictegrav/Emtricit/Tenofov Ala 1 tab PO DAILY 03/19/18 04/23/19 History [Biktarvy 50-200-25 mg Tablet] Nitroglycerin Sl Tabs [Nitrostat] 0.4 mg SUBLINGUAL Q5M PRN 03/19/18 04/23/19 History Ticagrelor [Brilinta] 90 mg PO BID #180 tab 04/20/18 04/23/19 Rx Insulin Glargine,Hum.rec.anlog 30 units SQ DAILY 09/14/18 04/23/19 History [Basaglar Kwikpen U-100] Amitriptyline HCl [Elavil] 50 mg PO HS 04/23/19 04/23/19 History Fluconazole [Diflucan] 100 mg PO DAILY 04/23/19 04/23/19 History HYDROcodone/APAP 10-325MG [[place] 1 tab PO Q6HR PRN 04/23/19 04/23/19 History 10-325] Metoprolol Tartrate [Lopressor] 25 mg PO BID 04/23/19 04/23/19 History Multivitamins, Thera [Multivitamin 1 tab PO DAILY 04/23/19 04/23/19 History (formulary)] Allergies Allergy/AdvReac Type Severity Reaction Status Date / Time No Known Allergies Allergy Verified 04/23/19 14:28 Physical Exam Vitals: Vital Signs Temp Pulse Resp BP Pulse Ox 04/23/19 14:20 77 20 107/78 100 04/23/19 14:10 81 20 117/87 100 04/23/19 14:00 85 16 122/89 100 04/23/19 13:50 97 F L 95 20 145/117 100 04/23/19 13:40 105 H 20 80 L 04/23/19 13:39 111 H 18 98 04/23/19 13:37 109 H 25 H 90 L Intake and Output 04/23/19 04/23/19 04/23/19 06:59 14:59 22:59 Intake Total 100 Balance 100 Intake: IV 100 Other: Weight 73.482 kg GENERAL: revealed a 54-year-old -[place] male, on mechanical ventilation, sedated, on propofol, in no distress. ENT: dry mucous membranes, no neck masses, slight JVD is noted. EYES: anicteric,PERRLA, EOMI, PULMONARY: Good breath sounds bilaterally. no crackles, no rhonchi and no wheezes. CARDIOVASCULAR: normal S1 and S2, no S3 gallop, no murmur. No rubs. ABDOMEN: Soft and nontender with normal bowel sounds. megaly, no rebound, no guarding, positive bowel sounds. SKIN: Skin tracy rashes. NEUROLOGIC: unable to assess, patient is unresponsive, just received propofol, and fentanyl before arrival to the ICU. Not even responding to painful stimuli. MUSCULOSKELETAL: good muscle tone and otherwise unremarkable. LYMPHATICS: No significant lymphadenopathy is noted PSYCHIATRIC: Unable to assess. Results - Laboratory Findings CBC and BMP: 04/23/19 13:45 04/23/19 13:45 ABG ABG pH 7.27 (7.35-7.45) L 04/23/19 14:00 ABG pCO2 35 mmHg (35-45) 04/23/19 14:00 ABG pO2 >400 mmHg (83-108) H 04/23/19 14:00 ABG O2 Saturation 99.6 % (94-97) H 04/23/19 14:00 PT/INR, D-dimer PT 11.3 sec (9.0-12.0) 04/23/19 13:45 INR 1.1 (<1.2) 04/23/19 13:45 Abnormal lab findings: Abnormal Labs 04/23/19 04/23/19 04/23/19 13:45 13:45 13:45 RBC 3.77 L Hgb 12.6 L Hct 37.8 L MCV 100.1 H APTT 20.8 L ABG pH ABG pO2 ABG HCO3 ABG Total CO2 ABG O2 Saturation Carbon Dioxide 16 L BUN 28 H Creatinine 1.86 H Glucose 241 H POC Glucose (mg/dL) AST 118 H ALT 104 H Urine Opiates Screen U Tricyclic Antidepress U Marijuana (THC) Screen 04/23/19 04/23/19 04/23/19 13:52 14:00 14:01 RBC Hgb Hct MCV APTT ABG pH 7.27 L ABG pO2 >400 H ABG HCO3 16 L ABG Total CO2 17 L ABG O2 Saturation 99.6 H Carbon Dioxide BUN Creatinine Glucose POC Glucose (mg/dL) 243 H AST ALT Urine Opiates Screen Detected H U Tricyclic Antidepress Detected H U Marijuana (THC) Screen Detected H 04/23/19 15:54 RBC Hgb Hct MCV APTT ABG pH ABG pO2 ABG HCO3 ABG Total CO2 ABG O2 Saturation Carbon Dioxide BUN Creatinine Glucose POC Glucose (mg/dL) 221 H AST ALT Urine Opiates Screen U Tricyclic Antidepress U Marijuana (THC) Screen - Diagnostic Findings Chest x-ray: image reviewed (minimal interstitial edema is suspected otherwise unremarkable.) Assessment and Plan Assessment: impression: 1 acute cardiac arrest secondary to acute ST elevation myocardial infarction 2 severe ischemic cardiomyopathy 3 possible anoxic brain injury however that is yet to be determined in the next 24 hours. Patient responded with good pulse after 1 shock, and he was intubated in the field. 4history of CABG in [address] [facility] 5 history of hypertension 6 HIV positive diagnosis since 2013 7 zer-yijqrok-lazrquqyp diabetes 8 previous history of tobacco dependence syndrome.presently in remission. 9 family history of early coronary artery disease 10 hyperlipidemia Recommendation: Continue ventilatory support, hemodynamic support, GI and DVT prophylaxis, address nutritional support in the next 12 hours, will assess mental status off sedation in early a.m., depending on his neurological status may or may not consider a CT of the brain and/or neurological consultation. We will follow closely and reevaluate in a.m. . Obviously the patient is critically ill, and prognosis is extremely guarded considering his severe coronary artery disease and severe LV dysfunction. Discussed his condition with cardiology before arrival to the ICU. Time with Patient: Greater than 30
[2019-04-23] MEDS: PROPOFOL 1,000 MG in EMPTY BAG 1 BAG IV SCH ×3 (16:45→22:39)
[2019-04-23] MEDS ORDERED: NALOXONE 0.4 MG/ML 1 ML VIAL IV PRN (16:58)
--- NOTE | 2019-04-23 17:04 | P.HPIM ---
History of Present Illness H&P Date: 04/23/19 Chief Complaint: Cardiac arrest 54-year-old male with PMH of asthma, diabetes mellitus, hypertension, CAD with previous bypass and PCI, heart failure with reduced ejection fraction less than 25%, HIV presents to the ED after being found down. Patient is currently intubated and sedated, majority of information is taken from previous documentation. Apparently, his friends had found him down in the backyard while patient was mowing the lawn. When AED was placed by the fire department, patient was noted to have a shockable rhythm, he was shocked and had a return of pulse. He was given amiodarone 150 mg on the field. There are reports that patient has a history of heroin abuse in the past. Per cardiology reports, patient had underwent aortocoronary bypass surgery with 3 vein graft to LAD, circumflex and RCA many years back. Cardiac catheterization was performed in March 2019 which showed 80% lesion of the left main, 100% occlusion of the LAD, 80% occl usion of the left circumflex, mild disease of the mid RCA, and 80-90% occlusion of the distal RCA. According to cardiology reports, patient had underwent PCI of the only patent vein graft to the circumflex by Dr. Sun with Impella device support Apparently, he has not been seen in clinic since April 2018. Patient was seen and examined after cardiac catheterization. The patient had a patent vein graft that was stented by Dr. Sun with the distal 30-35% lesion but good blood flow. The other 2 veins to the LAD and RCA were occluded. He was noted to have a poor ejection fraction of 25%. It was noted that patient might need ICD down the road. Patient is currently sedated and fully ventilated with a rate of 14, tidal volume 500, PEEP 5 and FiO2 of 100%. He has propofol that is running at 50 mcg/kg/m. Review of Systems Pertinent positives and negatives as discussed in HPI, a complete review of systems was performed and all other systems are negative. Past Medical History Past Medical History: Asthma, Chest Pain / Angina, Diabetes Mellitus, GERD/Reflux, Hyperlipidemia, Hypertension, Myocardial Infarction ([place]), Osteoarthritis ([place]) Additional Past Medical History / Comment(s): HIV, chronic low back pain Last Myocardial Infarction Date:: 2005 History of Any Multi-Drug Resistant Organisms: None Reported Past Surgical History: Coronary Bypass/CABG, Heart Catheterization Additional Past Surgical History / Comment(s): apoorva carpal tunnel, CABG 4 VESSEL-2006 Past Anesthesia/Blood Transfusion Reactions: No Reported Reaction Past Psychological History: Anxiety Smoking Status: Former smoker Past Alcohol Use History: Unable to Obtain Past Drug Use History: Unable to Obtain - Past Family History Sister(s) Family Medical History: Coronary Artery Disease (CAD) Father Family Medical History: Cancer Additional Family Medical History / Comment(s): THROAT Mother Family Medical History: Cancer Medications and Allergies Home Medications Medication Instructions Recorded Confirmed Type Olmesartan Medoxomil [Benicar] 40 mg PO DAILY 04/23/14 04/23/19 History Esomeprazole Magnesium [NexIUM] 40 mg PO DAILY 05/29/14 04/23/19 History ALPRAZolam [Xanax] 2 mg PO BID PRN 10/03/16 04/23/19 History Atorvastatin [Lipitor] 80 mg PO HS 10/03/16 04/23/19 History Albuterol Inhaler [Ventolin Hfa 1 - 2 puff INHALATION RT-Q6H PRN 03/19/18 04/23/19 History Inhaler] Aspirin 325 mg PO DAILY 03/19/18 04/23/19 History Bictegrav/Emtricit/Tenofov Ala 1 tab PO DAILY 03/19/18 04/23/19 History [Biktarvy 50-200-25 mg Tablet] Nitroglycerin Sl Tabs [Nitrostat] 0.4 mg SUBLINGUAL Q5M PRN 03/19/18 04/23/19 History Ticagrelor [Brilinta] 90 mg PO BID #180 tab 04/20/18 04/23/19 Rx Insulin Glargine,Hum.rec.anlog 30 units SQ DAILY 09/14/18 04/23/19 History [Basaglar Kwikpen U-100] Amitriptyline HCl [Elavil] 50 mg PO HS 04/23/19 04/23/19 History Fluconazole [Diflucan] 100 mg PO DAILY 04/23/19 04/23/19 History HYDROcodone/APAP 10-325MG [[place] 1 tab PO Q6HR PRN 04/23/19 04/23/19 History 10-325] Metoprolol Tartrate [Lopressor] 25 mg PO BID 04/23/19 04/23/19 History Multivitamins, Thera [Multivitamin 1 tab PO DAILY 04/23/19 04/23/19 History (formulary)] Allergies Allergy/AdvReac Type Severity Reaction Status Date / Time No Known Allergies Allergy Verified 04/23/19 14:28 Physical Exam Vitals: Vital Signs Temp Pulse Resp BP Pulse Ox 04/23/19 14:20 77 20 107/78 100 04/23/19 14:10 81 20 117/87 100 04/23/19 14:00 85 16 122/89 100 04/23/19 13:50 97 F L 95 20 145/117 100 04/23/19 13:40 105 H 20 80 L 04/23/19 13:39 111 H 18 98 04/23/19 13:37 109 H 25 H 90 L Intake and Output 04/23/19 04/23/19 04/23/19 06:59 14:59 22:59 Intake Total 100 Balance 100 Intake: IV 100 Other: Weight 73.482 kg General: [non toxic], [intubated and sedated], [appears at stated age] Derm: [warm], [dry] Head: [atraumatic], [normocephalic], [symmetric] Eyes: [no lid lag], [anicteric sclera] Mouth: [no lip lesion], [mucus membranes moist] Cardiovascular: [S1S2 reg], [no murmur], [positive DP pulse bilateral] Lungs: [Coarse breath sounds bilateral], [no rhonchi, no rales] , [no accessory muscle use] Abdominal: [soft], [ nontender to palpation], [no guarding], [no appreciable organomegaly] Ext: [no gross muscle atrophy], [no edema], [no contractures] Neuro: [Unable to determine] Psych: [Unable to determine] Results CBC & Chem 7: 04/23/19 13:45 04/23/19 13:45 Labs: Abnormal Lab Results - Last 24 Hours (Table) 04/23/19 04/23/19 04/23/19 Range/Units 13:45 13:45 13:45 RBC 3.77 L (4.30-5.90) m/uL Hgb 12.6 L (13.0-17.5) gm/dL Hct 37.8 L (39.0-53.0) % MCV 100.1 H (80.0-100.0) fL APTT 20.8 L (22.0-30.0) sec ABG pH (7.35-7.45) ABG pO2 (83-108) mmHg ABG HCO3 (21-25) mmol/L ABG Total CO2 (19-24) mmol/L ABG O2 Saturation (94-97) % Carbon Dioxide 16 L (22-30) mmol/L BUN 28 H (9-20) mg/dL Creatinine 1.86 H (0.66-1.25) mg/dL Glucose 241 H (74-99) mg/dL POC Glucose (mg/dL) (75-99) mg/dL AST 118 H (17-59) U/L ALT 104 H (21-72) U/L Urine Opiates Screen (NotDetected) U Tricyclic Antidepress (NotDetected) U Marijuana (THC) Screen (NotDetected) 04/23/19 04/23/19 04/23/19 Range/Units 13:52 14:00 14:01 RBC (4.30-5.90) m/uL Hgb (13.0-17.5) gm/dL Hct (39.0-53.0) % MCV (80.0-100.0) fL APTT (22.0-30.0) sec ABG pH 7.27 L (7.35-7.45) ABG pO2 >400 H (83-108) mmHg ABG HCO3 16 L (21-25) mmol/L ABG Total CO2 17 L (19-24) mmol/L ABG O2 Saturation 99.6 H (94-97) % Carbon Dioxide (22-30) mmol/L BUN (9-20) mg/dL Creatinine (0.66-1.25) mg/dL Glucose (74-99) mg/dL POC Glucose (mg/dL) 243 H (75-99) mg/dL AST (17-59) U/L ALT (21-72) U/L Urine Opiates Screen Detected H (NotDetected) U Tricyclic Antidepress Detected H (NotDetected) U Marijuana (THC) Screen Detected H (NotDetected) 04/23/19 Range/Units 15:54 RBC (4.30-5.90) m/uL Hgb (13.0-17.5) gm/dL Hct (39.0-53.0) % MCV (80.0-100.0) fL APTT (22.0-30.0) sec ABG pH (7.35-7.45) ABG pO2 (83-108) mmHg ABG HCO3 (21-25) mmol/L ABG Total CO2 (19-24) mmol/L ABG O2 Saturation (94-97) % Carbon Dioxide (22-30) mmol/L BUN (9-20) mg/dL Creatinine (0.66-1.25) mg/dL Glucose (74-99) mg/dL POC Glucose (mg/dL) 221 H (75-99) mg/dL AST (17-59) U/L ALT (21-72) U/L Urine Opiates Screen (NotDetected) U Tricyclic Antidepress (NotDetected) U Marijuana (THC) Screen (NotDetected) Assessment and Plan Assessment: Assessment and Plan Cardiac arrest with ST elevation [place] Heart failure reduced ejection fraction with EF less than 20% Hypertension HIV positive Diabetes mellitus Return of pulse after 1 shock. Given amiodarone on 150 mg on the field. EKG performed in ED shows ST elevation. Cardiac catheterization performed, patent vein graft that was stented by Dr. Sun with distal 30-35% lesion but good blood flow, 2 veins to the LAD and RCA were occluded. Chest x-ray shows pulmonary edema. Plans: Continue aspirin and Lipitor. Continue Brilinta twice a day. Started on metoprolol. Telemetry monitoring. Follow cardiology recommendations. As seen during cardiac catheterization. Plans: Started on beta anne. Rest art GUILLERMINA inhibitor tomorrow. Would benefit from Aldactone. Patient would also benefit from ICD placement. Will follow cardiology recommendations. BP 107/78. Plans: Continue metoprolol and GUILLERMINA inhibitor. Monitor vitals, adjust indications as necessary. Plans: Resume home medications. Plans: Insulin sliding scale. Regular Accu-Cheks. Hypoglycemic precautions. DVT prophylaxis: [SCD boots, heparin] Discussed with: [Nurse] Anticipated discharge: [3-5 days] Anticipated discharge place: [Home] A total of [45] minutes was spent on the care of this complex patient more than 50% of the time was spent in counseling and care coordination. Patient will remain full code at this time. Will attempt to get in contact with family. Patient has poor prognosis.
--- NOTE | 2019-04-23 17:33 | PCN ---
PROCEDURE NOTE OPERATIVE REPORT: Placement of a right radial arterial line. PREOPERATIVE DIAGNOSIS: Acute ST-elevation myocardial infarction and cardiac arrest. POSTOPERATIVE DIAGNOSIS: Acute ST-elevation myocardial infarction and cardiac arrest. ANESTHESIA USED: None deployed. PROCEDURE: The right wrist was prepared in a sterile fashion and drapes were applied. The right radial artery was palpated, cannulated easily, and a guidewire was placed. A Cook's catheter was inserted over the guidewire, and the guidewire was removed. Good blood flow and good waveform were noted, no evidence of any immediate complications. Line was secured using 3.0 silk sutures. MMODL / IJN: [id number] /
[2019-04-23 17:41] LABS: ABG HCO3 17 mmol/L (21-25); ABG Oxygen Saturation 99.5 % (94-97); ABG PCO2 36 mmHg (35-45); ABG PH 7.28 (7.35-7.45); ABG PO2 >400 mmHg (83-108); ABG TCO2 18 mmol/L (19-24); Allen Test Performed? Yes
--- NOTE | 2019-04-23 18:25 | XR ---
EXAMINATION TYPE: XR chest 1V portable DATE OF EXAM: 04/23/2019 COMPARISON: 04/23/2019 HISTORY: Check tube placement TECHNIQUE: Single frontal view of the chest is obtained. FINDINGS: Endotracheal tube is 5 cm from the jihan in fairly good position. Lungs are clear. There is no heart failure. There is nasogastric tube with the tip over the gastric fundus. There is no sign of a pneumothorax. There are chest leads. The bony thorax is intact. IMPRESSION: No active cardiopulmonary disease. No change.
[2019-04-23] MEDS: INSULIN ASPART (NovoLOG) 100 UNIT/ML VIAL SQ SCH ×2 (19:01→20:32)
[2019-04-23] MEDS: PANTOPRAZOLE 40 MG/10 ML VIAL IVP SCH (19:01)
[2019-04-23] MEDS: IPRATROPIUM-ALBUTEROL 3 ML NEB INHALATION SCH (19:41)
[2019-04-23] MEDS: CHLORHEXIDINE GLUCONATE 15 ML CUP MUCOUS MEM SCH (20:28)
[2019-04-23] MEDS: TICAGRELOR 90 MG TAB PO SCH (20:29)
[2019-04-23 20:32] LABS: Glucose,Whole Blood 145 mg/dL (75-99)
[2019-04-23] MEDS ORDERED: METOPROLOL TARTRATE 12.5 MG TAB PO SCH (21:00)
[2019-04-24 01:42] LABS: Glucose,Whole Blood 95 mg/dL (75-99)
[2019-04-24] MEDS: PROPOFOL 1,000 MG in EMPTY BAG 1 BAG IV SCH ×3 (01:42→08:05)
[2019-04-24] MEDS ORDERED: NITROGLYCERIN-D5W PMX 50 MG in DEXTROSE/WATER 1 250ML.BAG IV SCH (04:00)
[2019-04-24 05:16] LABS: Basophils % (A) 0 %; Eosinophils # (A) 0.1 k/uL (0-0.7); Eosinophils % (A) 1 %; HCT 37.4 % (39.0-53.0); HGB 12.3 gm/dL (13.0-17.5); Lymphocytes # (A) 1.1 k/uL (1.0-4.8); Lymphocytes % (A) 20 %; MCHC 32.9 g/dL (31.0-37.0); MCV 100.4 fL (80.0-100.0); Mean Platelet Volume 7.9; Monocytes # (A) 0.4 k/uL (0-1.0); Monocytes % (A) 8 %; Neutrophils # (A) 3.6 k/uL (1.3-7.7); Neutrophils % (A) 67 %; Platelet Count 149 k/uL (150-450); RBC 3.73 m/uL (4.30-5.90); RDW 13.3 % (11.5-15.5); WBC 5.3 k/uL (3.8-10.6)
[2019-04-24 05:50] LABS: African American GFR (CKD) >90 (>60 ml/min/1.73 sqM); Anion Gap 8 mmol/L; Blood Urea Nitrogen 20 mg/dL (9-20); Calcium 9.4 mg/dL (8.4-10.2); Carbon Dioxide 21 mmol/L (22-30); Chloride 111 mmol/L (98-107); Glucose 105 mg/dL (74-99); Magnesium 1.9 mg/dL (1.6-2.3); Potassium 4.2 mmol/L (3.5-5.1); Sodium 140 mmol/L (137-145)
[2019-04-24] MEDS ORDERED: METOPROLOL TARTRATE 5 MG/5 ML VIAL IVP STA (05:51)
[2019-04-24] MEDS ORDERED: METOPROLOL TARTRATE 5 MG/5 ML VIAL IVP PRN (06:31)
[2019-04-24] MEDS: SODIUM CHLORIDE 0.9% 1,000 ML IV SCH (06:41)
[2019-04-24 06:58] LABS: Glucose,Whole Blood 140 mg/dL (75-99)
[2019-04-24] MEDS: INSULIN ASPART (NovoLOG) 100 UNIT/ML VIAL SQ SCH ×4 (06:59→20:01)
--- NOTE | 2019-04-24 07:02 | XR ---
EXAMINATION TYPE: XR chest 1V portable DATE OF EXAM: 04/24/2019 HISTORY: Tube placement. REFERENCE: Previous study dated 04/23/2019. FINDINGS: There has been a midline sternotomy. The patient is ET tube and NG tube remain in place, un changed in appearance. The lungs appear clear. Pleural space are clear. The heart is not enlarged. IMPRESSION: NO ACTIVE INTRATHORACIC DISEASE.
[2019-04-24 08:24] LABS: ABG Base Excess -7.4 mmol/L; ABG HCO3 19 mmol/L (21-25); ABG PCO2 36 mmHg (35-45); ABG PH 7.32 (7.35-7.45); ABG PO2 179 mmHg (83-108); ABG TCO2 20 mmol/L (19-24); Allen Test Performed? Yes
[2019-04-24] MEDS: IPRATROPIUM-ALBUTEROL 3 ML NEB INHALATION SCH ×5 (08:28→19:33)
[2019-04-24] MEDS: Bictegrav/Emtricit/Tenofov Ala [Biktarvy 50-200-25 Mg Tablet] PO SCH (08:54)
[2019-04-24] MEDS ORDERED: LOSARTAN 50 MG TAB PO SCH (09:00)
[2019-04-24] MEDS: CHLORHEXIDINE GLUCONATE 15 ML CUP MUCOUS MEM SCH ×2 (09:00→19:36)
[2019-04-24] MEDS: FLUCONAZOLE 100 MG TAB PO SCH (09:00)
[2019-04-24] MEDS ORDERED: TICAGRELOR 90 MG TAB PO SCH (09:00)
[2019-04-24] MEDS: ASPIRIN 81 MG PO SCH (09:00)
[2019-04-24] MEDS: ATORVASTATIN 80 MG TAB PO SCH (09:00)
[2019-04-24] MEDS: LOSARTAN 50 MG TAB PO SCH (09:00)
[2019-04-24] MEDS: PANTOPRAZOLE 40 MG/10 ML VIAL IVP SCH (09:01)
[2019-04-24] MEDS: TICAGRELOR 90 MG TAB PO SCH ×2 (09:01→19:51)
[2019-04-24] MEDS: METOPROLOL TARTRATE 50 MG TAB PO SCH ×2 (09:01→19:51)
[2019-04-24] MEDS ORDERED: DEXMEDETOMIDINE/0.9% NACL(PMX) 400 MCG in EMPTY BAG 1 BAG IV SCH (10:00)
[2019-04-24] MEDS: CLEVIDIPINE BUTYRATE 25 MG in EMPTY BAG 1 BAG IV SCH (11:08)
[2019-04-24 11:38] LABS: Glucose,Whole Blood 160 mg/dL (75-99)
[2019-04-24] MEDS: HEPARIN SOD,PORK IN 0.45% NACL 25,000 UNIT in 0.45% NACL 1 250ML.BAG IV SCH (12:23)
--- NOTE | 2019-04-24 12:24 | P.PN ---
Subjective Progress Note Date: 04/24/19 Principal diagnosis: cardiac arrest, acute ST elevation myocardial infarction this is a 54-year-old white male presents to the emergency room by EMS, patient had a witnessed cardiac arrest. The fire department responded to the call, initial rhythm was ventricular fibrillation, patient was shocked 1, and he was given amiodarone by EMS 150 mg IV push. Patient was intubated in the field, brought into the emergency room, and his EKG showed anterior ST elevation myocardial infarction. Patient underwent cardiac catheterization, however no intervention was felt to be necessary. Patient was found to have significant cardiac disease, and the only graft which was open was the one which was stented by Dr. Sun, this was stented about a year ago SVG to obtuse marginal. It was felt the patient could not be stented because of his diffuse coronary artery disease, and all other grafts were occluded.hence the patient was sent to the intensive care unit on mechanical ventilation, and I was asked to see him on consultation. Patient is known to have history of severe LV dysfunction, severe coronary artery disease and previous CABG, severe cardiomyopathy it was also felt in the past that his SVG to obtuse margin was his Lif[facility].he was seen in the past by cardiac surgery, and he was not felt to be poor candidate for redo CABG.patient also had placement of impella device by Dr. Sun back in April of 2018.patient is now on mechanical ventilation, his ventilator settings are assist control rate of 14, tidal volume of 500, FiO2 100%, PEEP of 5, ABG is pending at the time of the dictation. Reevaluated today on 04/24/2019, patient had a relatively uneventful night on mechanical ventilation . Remains on mechanical ventilation this morning,his ABG this morning showed a pO2 of 179 pCO2 of 36 pH of 7.3 to and this was on tidal volume of 500 assist control rate of 14, and FiO2 of 40%. Patient was noted to be extremely agitated once the propofol was cut down from 75 mcg/kg/m, and obviously is going to be a difficult wean, I went ahead and recommended that we start the patient on Precedex, and I plan to wean and extubate the patient today. Family members and significant others are at bedside, and updated on his condition. According to the nurses he was following instructions earlier today, obviously his mental status does not seem to be affected much. But extreme agitation is noted once we are down on propofol. Weaning parameters were noted, hence I will likely recommend extubation once he is on Precedex.chest x-ray was reviewed CBC was reviewed basic metabolic profile was noted to be normal renal profile isimproved, his creatinine went down from 1.86-1.04.chest x-ray showed no evidence of any active intrathoracic disease Objective - Vital Signs Vital signs: Vital Signs Temp 98.1 F 04/24/19 08:30 Pulse 71 04/24/19 11:00 Resp 19 04/24/19 11:00 BP 93/63 04/24/19 11:00 Pulse Ox 100 04/24/19 11:00 Intake & Output 04/23/19 04/24/19 04/24/19 18:59 06:59 18:59 Intake Total 334 1173.132 416.816 Output Total 130 1580 640 Balance 204 -406.868 -223.184 Weight 73.482 kg 68.7 kg Intake: IV 334 786 237 Pressure Bag 9 36 12 Sodium Chloride 0.9% 1, 225 750 225 000 ml @ 75 mls/hr IV . [id number] JOSE Rx#:[id number] Intake, IV Titration 387.132 179.816 Amount Nitroglycerin-D5w Pmx 50 36.925 25.2 mg In Dextrose/Water 1 250ml.bag @ Titrate IV . Q0M JOSE Rx#:[id number] Propofol 1,000 mg In 350.207 154.616 Empty Bag 1 bag @ Titrate IV .Q0M JOSE Rx#: [id number] Output: Urine 130 1580 240 Urine/Stool Mix 400 Other: Voiding Method Indwelling Catheter Indwelling Catheter Indwelling Catheter ABP, PAP, CO, CI - Last Documented Arterial Blood Pressure 100/59 - Exam GENERAL: revealed a 54-year-old -Turkish male, on mechanical ventilation, sedated, on propofol, in no distress.noted to be extremely restless and agitated once the propofol was down to 50 mcg/kg/m from 75 mcg/kg/m. ENT: dry mucous membranes, no neck masses, slight JVD is noted.endotracheal tube and orogastric tube are noted to be intact. EYES:anicteric,PERRLA, EOMI, PULMONARY: Good breath sounds bilaterally. no crackles, no rhonchi and no wheezes. CARDIOVASCULAR: normal S1 and S2, no S3 gallop, no murmur. No rubs. ABDOMEN: Soft and nontender with normal bowel sounds. megaly, no rebound, no guarding, positive bowel sounds. SKIN: Skin tracy rashes. NEUROLOGIC: unable to assess, however the patient was noted to be extremely agitated on a lower dose of propofol, hence I have recommended starting the patient on Precedex. MUSCULOSKELETAL: good muscle tone and otherwise unremarkable. LYMPHATICS: No significant lymphadenopathy is noted PSYCHIATRIC:extreme agitation is noted - Labs CBC & Chem 7: 04/24/19 05:00 04/24/19 05:00 Labs: Abnormal Lab Results - Last 24 Hours (Table) 04/23/19 04/23/19 04/23/19 Range/Units 13:45 13:45 13:45 RBC 3.77 L (4.30-5.90) m/uL Hgb 12.6 L (13.0-17.5) gm/dL Hct 37.8 L (39.0-53.0) % MCV 100.1 H (80.0-100.0) fL Plt Count (150-450) k/uL APTT 20.8 L (22.0-30.0) sec ABG pH (7.35-7.45) ABG pO2 (83-108) mmHg ABG HCO3 (21-25) mmol/L ABG Total CO2 (19-24) mmol/L ABG O2 Saturation (94-97) % Chloride (98-107) mmol/L Carbon Dioxide 16 L (22-30) mmol/L BUN 28 H (9-20) mg/dL Creatinine 1.86 H (0.66-1.25) mg/dL Glucose 241 H (74-99) mg/dL POC Glucose (mg/dL) (75-99) mg/dL AST 118 H (17-59) U/L ALT 104 H (21-72) U/L Urine Opiates Screen (NotDetected) U Tricyclic Antidepress (NotDetected) U Marijuana (THC) Screen (NotDetected) 04/23/19 04/23/19 04/23/19 Range/Units 13:52 14:00 14:01 RBC (4.30-5.90) m/uL Hgb (13.0-17.5) gm/dL Hct (39.0-53.0) % MCV (80.0-100.0) fL Plt Count (150-450) k/uL APTT (22.0-30.0) sec ABG pH 7.27 L (7.35-7.45) ABG pO2 >400 H (83-108) mmHg ABG HCO3 16 L (21-25) mmol/L ABG Total CO2 17 L (19-24) mmol/L ABG O2 Saturation 99.6 H (94-97) % Chloride (98-107) mmol/L Carbon Dioxide (22-30) mmol/L BUN (9-20) mg/dL Creatinine (0.66-1.25) mg/dL Glucose (74-99) mg/dL POC Glucose (mg/dL) 243 H (75-99) mg/dL AST (17-59) U/L ALT (21-72) U/L Urine Opiates Screen Detected H (NotDetected) U Tricyclic Antidepress Detected H (NotDetected) U Marijuana (THC) Screen Detected H (NotDetected) 04/23/19 04/23/19 04/23/19 Range/Units 15:54 17:40 20:30 RBC (4.30-5.90) m/uL Hgb (13.0-17.5) gm/dL Hct (39.0-53.0) % MCV (80.0-100.0) fL Plt Count (150-450) k/uL APTT (22.0-30.0) sec ABG pH 7.28 L (7.35-7.45) ABG pO2 >400 H (83-108) mmHg ABG HCO3 17 L (21-25) mmol/L ABG Total CO2 18 L (19-24) mmol/L ABG O2 Saturation 99.5 H (94-97) % Chloride (98-107) mmol/L Carbon Dioxide (22-30) mmol/L BUN (9-20) mg/dL Creatinine (0.66-1.25) mg/dL Glucose (74-99) mg/dL POC Glucose (mg/dL) 221 H 145 H (75-99) mg/dL AST (17-59) U/L ALT (21-72) U/L Urine Opiates Screen (NotDetected) U Tricyclic Antidepress (NotDetected) U Marijuana (THC) Screen (NotDetected) 04/24/19 04/24/19 04/24/19 Range/Units 05:00 05:00 06:57 RBC 3.73 L (4.30-5.90) m/uL Hgb 12.3 L (13.0-17.5) gm/dL Hct 37.4 L (39.0-53.0) % MCV 100.4 H (80.0-100.0) fL Plt Count 149 L (150-450) k/uL APTT (22.0-30.0) sec ABG pH (7.35-7.45) ABG pO2 (83-108) mmHg ABG HCO3 (21-25) mmol/L ABG Total CO2 (19-24) mmol/L ABG O2 Saturation (94-97) % Chloride 111 H (98-107) mmol/L Carbon Dioxide 21 L (22-30) mmol/L BUN (9-20) mg/dL Creatinine (0.66-1.25) mg/dL Glucose 105 H (74-99) mg/dL POC Glucose (mg/dL) 140 H (75-99) mg/dL AST (17-59) U/L ALT (21-72) U/L Urine Opiates Screen (NotDetected) U Tricyclic Antidepress (NotDetected) U Marijuana (THC) Screen (NotDetected) 04/24/19 04/24/19 Range/Units 08:10 11:36 RBC (4.30-5.90) m/uL Hgb (13.0-17.5) gm/dL Hct (39.0-53.0) % MCV (80.0-100.0) fL Plt Count (150-450) k/uL APTT (22.0-30.0) sec ABG pH 7.32 L (7.35-7.45) ABG pO2 179 H (83-108) mmHg ABG HCO3 19 L (21-25) mmol/L ABG Total CO2 (19-24) mmol/L ABG O2 Saturation 99.0 H (94-97) % Chloride (98-107) mmol/L Carbon Dioxide (22-30) mmol/L BUN (9-20) mg/dL Creatinine (0.66-1.25) mg/dL Glucose (74-99) mg/dL POC Glucose (mg/dL) 160 H (75-99) mg/dL AST (17-59) U/L ALT (21-72) U/L Urine Opiates Screen (NotDetected) U Tricyclic Antidepress (NotDetected) U Marijuana (THC) Screen (NotDetected) Assessment and Plan Assessment: impression: 1 acute cardiac arrest secondary to acute ST elevation myocardial infarction 2 severe ischemic cardiomyopathy 3 possible anoxic brain injury however that is yet to be determined in the next 24 hours. Patient responded with good pulse after 1 shock, and he was intubated in the field. 4history of CABG in 2005 insulin at [facility] 5 history of hypertension 6 HIV positive diagnosis since 2013, we'll restart his home meds once extubated. 7 uwr-vbsatkq-eoijljwhh diabetes 8 previous history of tobacco dependence syndrome.presently in remission. 9 family history of early coronary artery disease 10 hyperlipidemia Recommendation: discontinue propofol and start the patient on Precedex. I plan to wean and exudate the patient today. Continue present cardiac meds. As per cardiology. May consider placing the patient on a pressure support and CPAP before extubating him. consider clevidipine for elevated blood pressure Continue nitroglycerin drip as per cardiology. Resume previous home meds once the patient is fully extubated. I had a long discussion with his significant other today, and updated on his overall status, and overall prognosis picture considering his underlying severe coronary artery disease. Patient may require ICD placement next week. critical care time is 35 minutes Time with Patient: Greater than 30
[2019-04-24] MEDS ORDERED: AMIODARONE 360 MG in DEXTROSE 5% IN WATER 200 ML IV ONE ×2 (13:36)
--- NOTE | 2019-04-24 15:05 | P.PN ---
Subjective Progress Note Date: 04/24/19 Principal diagnosis: Cardiac arrest Patient was seen and examined. No acute events overnight. Able to be extubated 20 minutes ago. ABG this morning shows pH 7.3, pCO2 36, pO2 179. His significant other is at bedside. Patient is requesting something to drink. Patient is complaining of chest pain, likely from receiving chest compressions. Objective - Vital Signs Vital signs: Vital Signs Temp 97.4 F L 04/24/19 12:00 Pulse 67 04/24/19 12:30 Resp 52 H 04/24/19 12:30 BP 113/73 04/24/19 12:30 Pulse Ox 100 04/24/19 12:30 Intake & Output 04/23/19 04/24/19 04/24/19 18:59 06:59 18:59 Intake Total 334 1173.132 601.445 Output Total 130 1580 840 Balance 204 -406.868 -238.555 Weight 73.482 kg 68.7 kg Intake: IV 334 786 393 Pressure Bag 9 36 18 Sodium Chloride 0.9% 1, 225 750 375 000 ml @ 75 mls/hr IV . [id number] JOSE Rx#:[id number] Intake, IV Titration 387.132 208.445 Amount Dexmedetomidine/0.9% NaCl 11.564 (Pmx) 400 mcg In Empty Bag 1 bag @ Titrate IV . Q0M JOSE Rx#:[id number] Nitroglycerin-D5w Pmx 50 36.925 28.25 mg In Dextrose/Water 1 250ml.bag @ Titrate IV . Q0M JOSE Rx#:[id number] Propofol 1,000 mg In 350.207 168.631 Empty Bag 1 bag @ Titrate IV .Q0M JOSE Rx#: [id number] Output: Urine 130 1580 440 Urine/Stool Mix 400 Other: Voiding Method Indwelling Catheter Indwelling Catheter Indwelling Catheter ABP, PAP, CO, CI - Last Documented Arterial Blood Pressure 100/59 - Exam General: [non toxic], [no distress], [appears at stated age] Derm: [warm], [dry] Head: [atraumatic], [normocephalic], [symmetric] Eyes: [no lid lag], [anicteric sclera] Mouth: [no lip lesion], [mucus membranes moist] Cardiovascular: [S1S2 reg], [no murmur], [positive DP pulse bilateral] Lungs: [Clear to auscultation bilateral], [no rhonchi, no rales] , [no accessory muscle use] Abdominal: [soft], [ nontender to palpation], [no guarding], [no appreciable organomegaly] Ext: [no gross muscle atrophy], [no edema], [no contractures] Neuro: [Appears drowsy, able to follow simple commands but inappropriate time to do neuro exam] Psych: [Appears oriented but not alert] - Labs CBC & Chem 7: 04/24/19 05:00 04/24/19 05:00 Labs: Abnormal Lab Results - Last 24 Hours (Table) 04/23/19 04/23/19 04/23/19 Range/Units 13:45 13:45 13:45 RBC 3.77 L (4.30-5.90) m/uL Hgb 12.6 L (13.0-17.5) gm/dL Hct 37.8 L (39.0-53.0) % MCV 100.1 H (80.0-100.0) fL Plt Count (150-450) k/uL APTT 20.8 L (22.0-30.0) sec ABG pH (7.35-7.45) ABG pO2 (83-108) mmHg ABG HCO3 (21-25) mmol/L ABG Total CO2 (19-24) mmol/L ABG O2 Saturation (94-97) % Chloride (98-107) mmol/L Carbon Dioxide 16 L (22-30) mmol/L BUN 28 H (9-20) mg/dL Creatinine 1.86 H (0.66-1.25) mg/dL Glucose 241 H (74-99) mg/dL POC Glucose (mg/dL) (75-99) mg/dL AST 118 H (17-59) U/L ALT 104 H (21-72) U/L Urine Opiates Screen (NotDetected) U Tricyclic Antidepress (NotDetected) U Marijuana (THC) Screen (NotDetected) 04/23/19 04/23/19 04/23/19 Range/Units 13:52 14:00 14:01 RBC (4.30-5.90) m/uL Hgb (13.0-17.5) gm/dL Hct (39.0-53.0) % MCV (80.0-100.0) fL Plt Count (150-450) k/uL APTT (22.0-30.0) sec ABG pH 7.27 L (7.35-7.45) ABG pO2 >400 H (83-108) mmHg ABG HCO3 16 L (21-25) mmol/L ABG Total CO2 17 L (19-24) mmol/L ABG O2 Saturation 99.6 H (94-97) % Chloride (98-107) mmol/L Carbon Dioxide (22-30) mmol/L BUN (9-20) mg/dL Creatinine (0.66-1.25) mg/dL Glucose (74-99) mg/dL POC Glucose (mg/dL) 243 H (75-99) mg/dL AST (17-59) U/L ALT (21-72) U/L Urine Opiates Screen Detected H (NotDetected) U Tricyclic Antidepress Detected H (NotDetected) U Marijuana (THC) Screen Detected H (NotDetected) 04/23/19 04/23/19 04/23/19 Range/Units 15:54 17:40 20:30 RBC (4.30-5.90) m/uL Hgb (13.0-17.5) gm/dL Hct (39.0-53.0) % MCV (80.0-100.0) fL Plt Count (150-450) k/uL APTT (22.0-30.0) sec ABG pH 7.28 L (7.35-7.45) ABG pO2 >400 H (83-108) mmHg ABG HCO3 17 L (21-25) mmol/L ABG Total CO2 18 L (19-24) mmol/L ABG O2 Saturation 99.5 H (94-97) % Chloride (98-107) mmol/L Carbon Dioxide (22-30) mmol/L BUN (9-20) mg/dL Creatinine (0.66-1.25) mg/dL Glucose (74-99) mg/dL POC Glucose (mg/dL) 221 H 145 H (75-99) mg/dL AST (17-59) U/L ALT (21-72) U/L Urine Opiates Screen (NotDetected) U Tricyclic Antidepress (NotDetected) U Marijuana (THC) Screen (NotDetected) 04/24/19 04/24/19 04/24/19 Range/Units 05:00 05:00 06:57 RBC 3.73 L (4.30-5.90) m/uL Hgb 12.3 L (13.0-17.5) gm/dL Hct 37.4 L (39.0-53.0) % MCV 100.4 H (80.0-100.0) fL Plt Count 149 L (150-450) k/uL APTT (22.0-30.0) sec ABG pH (7.35-7.45) ABG pO2 (83-108) mmHg ABG HCO3 (21-25) mmol/L ABG Total CO2 (19-24) mmol/L ABG O2 Saturation (94-97) % Chloride 111 H (98-107) mmol/L Carbon Dioxide 21 L (22-30) mmol/L BUN (9-20) mg/dL Creatinine (0.66-1.25) mg/dL Glucose 105 H (74-99) mg/dL POC Glucose (mg/dL) 140 H (75-99) mg/dL AST (17-59) U/L ALT (21-72) U/L Urine Opiates Screen (NotDetected) U Tricyclic Antidepress (NotDetected) U Marijuana (THC) Screen (NotDetected) 04/24/19 04/24/19 Range/Units 08:10 11:36 RBC (4.30-5.90) m/uL Hgb (13.0-17.5) gm/dL Hct (39.0-53.0) % MCV (80.0-100.0) fL Plt Count (150-450) k/uL APTT (22.0-30.0) sec ABG pH 7.32 L (7.35-7.45) ABG pO2 179 H (83-108) mmHg ABG HCO3 19 L (21-25) mmol/L ABG Total CO2 (19-24) mmol/L ABG O2 Saturation 99.0 H (94-97) % Chloride (98-107) mmol/L Carbon Dioxide (22-30) mmol/L BUN (9-20) mg/dL Creatinine (0.66-1.25) mg/dL Glucose (74-99) mg/dL POC Glucose (mg/dL) 160 H (75-99) mg/dL AST (17-59) U/L ALT (21-72) U/L Urine Opiates Screen (NotDetected) U Tricyclic Antidepress (NotDetected) U Marijuana (THC) Screen (NotDetected) Assessment and Plan Assessment: Assessment and Plan Cardiac arrest with ST elevation CA Heart failure reduced ejection fraction with EF less than 20% Hypertension HIV positive Diabetes mellitus Macrocytic anemia Hyperchloremic metabolic acidosis Resolved: Acute hypoxic respiratory failure Return of pulse after 1 shock. Given amiodarone on 150 mg on the field. EKG performed in ED shows ST elevation. Cardiac catheterization performed, patent vein graft that was stented by Dr. Sun with distal 30-35% lesion but good blood flow, 2 veins to the LAD and RCA were occluded. Chest x-ray shows pulmonary edema. Likely cause of cardiac arrest is an arrhythmia. Plans: Continue aspirin and Lipitor. Continue Brilinta twice a day. Started on metoprolol. Currently on nitroglycerin drip. Telemetry monitoring. Follow cardiology recommendations. As seen during cardiac catheterization. Plans: Started on beta anne. Restart losartan. Would benefit from Aldactone. Patient would also benefit from ICD placement. Will follow cardiology recommendations. BP 107/78. Plans: Continue metoprolol and GUILLERMINA inhibitor. Monitor vitals, adjust indications as necessary. Plans: Resume home medications. Plans: Insulin sliding scale. Regular Accu-Cheks. Hypoglycemic precautions. Plans: Follow B12 and folic acid. Likely from infuse IVF. Plans: Daily BMP. [Successfully extubated today. Will need ICD prior to discharge. Patient will remain full code at this time. Patient names his significant other Andrey decision-maker in the case that he can't make decisions for himself.]
[2019-04-24 17:02] LABS: Glucose,Whole Blood 106 mg/dL (75-99)
[2019-04-24 19:49] LABS: Glucose,Whole Blood 192 mg/dL (75-99)
--- NOTE | 2019-04-24 20:04 | CONS ---
CONSULTATION Mr. Munson came in with a cardiac arrest yesterday. He apparently was moving some heavy object in a part of an air conditioner in the basement and his partner, a gentleman, was mowing the lawn outside. Then he came in running to found him passed out, called 911 and EMS got there, gave him 1 shock and resuscitated him. However, after arrival his pupils were dilated, fixed. He was intubated. I performed coronary angiography which did not reveal any significant obstructive disease and his angiograms were similar to the previous study from April of 2018. I am suspecting that his cardiac arrest was related to ventricular arrhythmia secondary to a scar since he had extensive wall motion abnormality and ejection fraction was in the 20% range. However, he has not had any arrhythmia. He is on amiodarone infusion. He is still not responding but making urine. Prognosis remains guarded. His right groin is clean and dry. Vital signs of stable. In fact, I used some nitroglycerin to keep his blood pressure down. S1-S2 heard normally. Short systolic murmur noted. Lungs reveal diminished air entry. Abdomen and lower extremity exam unchanged. Pulses are palpable distally. Groin is clean and dry. We will continue supportive care and consider a CT scan for this patient. I am recommending that we cut down the nitroglycerin drip to 20 mics, increase Lopressor to 50 mg b.i.d., use IV push if necessary for tachycardia, add losartan 50 mg daily. Consider a CT scan after he is seen by the welder and fitter, Dr. Powell. MMODL / JPN: [id number] /
[2019-04-24] MEDS: HYDROcodone/APAP 10-325MG 1 EACH TAB PO PRN (20:54)
[2019-04-24] MEDS: AMITRIPTYLINE HCL 50 MG TAB PO SCH (21:33)
[2019-04-25 01:36] LABS: Glucose,Whole Blood 122 mg/dL (75-99)
[2019-04-25] MEDS: HYDROcodone/APAP 10-325MG 1 EACH TAB PO PRN ×4 (03:01→22:24)
[2019-04-25] MEDS: SODIUM CHLORIDE 0.9% 1,000 ML IV SCH ×2 (03:02→20:44)
[2019-04-25 05:19] LABS: Basophils % (A) 0 %; Eosinophils # (A) 0.1 k/uL (0-0.7); Eosinophils % (A) 1 %; HCT 32.4 % (39.0-53.0); HGB 11.1 gm/dL (13.0-17.5); Lymphocytes # (A) 1.3 k/uL (1.0-4.8); Lymphocytes % (A) 23 %; MCH 33.3 pg (25.0-35.0); MCHC 34.2 g/dL (31.0-37.0); MCV 97.5 fL (80.0-100.0); Mean Platelet Volume 7.1; Monocytes # (A) 0.5 k/uL (0-1.0); Monocytes % (A) 9 %; Neutrophils # (A) 3.7 k/uL (1.3-7.7); Neutrophils % (A) 63 %; Platelet Count 132 k/uL (150-450); RBC 3.32 m/uL (4.30-5.90); RDW 13.2 % (11.5-15.5); WBC 5.9 k/uL (3.8-10.6)
[2019-04-25 06:01] LABS: African American GFR (CKD) >90 (>60 ml/min/1.73 sqM); Anion Gap 6 mmol/L; Blood Urea Nitrogen 17 mg/dL (9-20); Calcium 9.3 mg/dL (8.4-10.2); Carbon Dioxide 23 mmol/L (22-30); Chloride 109 mmol/L (98-107); Glucose 166 mg/dL (74-99); Potassium 4.4 mmol/L (3.5-5.1); Sodium 138 mmol/L (137-145)
[2019-04-25 06:30] LABS: Glucose,Whole Blood 244 mg/dL (75-99)
[2019-04-25] MEDS: INSULIN ASPART (NovoLOG) 100 UNIT/ML VIAL SQ SCH ×4 (06:32→20:40)
[2019-04-25] MEDS: IPRATROPIUM-ALBUTEROL 3 ML NEB INHALATION SCH ×4 (08:05→19:18)
--- NOTE | 2019-04-25 08:07 | XR ---
EXAMINATION TYPE: XR chest 1V portable DATE OF EXAM: 04/25/2019 COMPARISON: Prior chest x-ray 04/24/2019, 04/23/2019 HISTORY: Extubated, abnormal chest x-ray TECHNIQUE: Single frontal view of the chest is obtained. FINDINGS: Endotracheal tube has been removed, orogastric tube no longer seen. There are overlying ca rdiac leads. Patient is post median sternotomy and coronary artery bypass grafting. No pneumothorax o r pleural effusion. Some minimal strand-like atelectatic changes persist adjacent to the left heart b order, no evident effusion. Heart size is within normal limits. IMPRESSION: Interval extubation. Minimal basilar atelectasis.
[2019-04-25] MEDS: ACETAMINOPHEN TAB 325 MG TAB PO PRN ×2 (08:34→17:47)
[2019-04-25] MEDS: ATORVASTATIN 80 MG TAB PO SCH (08:35)
[2019-04-25] MEDS: ASPIRIN 81 MG PO SCH (08:35)
[2019-04-25] MEDS: LOSARTAN 50 MG TAB PO SCH (08:36)
[2019-04-25] MEDS: CHLORHEXIDINE GLUCONATE 15 ML CUP MUCOUS MEM SCH ×2 (08:36→20:17)
[2019-04-25] MEDS: TICAGRELOR 90 MG TAB PO SCH ×2 (08:36→20:41)
[2019-04-25] MEDS: PANTOPRAZOLE 40 MG/10 ML VIAL IVP SCH (08:36)
[2019-04-25] MEDS: METOPROLOL TARTRATE 50 MG TAB PO SCH ×2 (08:36→20:41)
[2019-04-25] MEDS ORDERED: NON FORMULARY DRUG (Esomeprazole Magnesium [Nexium] 40 MG) PO SCH (09:00)
[2019-04-25] MEDS: FLUCONAZOLE 100 MG TAB PO SCH (10:02)
[2019-04-25] MEDS: Bictegrav/Emtricit/Tenofov Ala [Biktarvy 50-200-25 Mg Tablet] PO SCH (10:07)
[2019-04-25] MEDS: CLEVIDIPINE BUTYRATE 25 MG in EMPTY BAG 1 BAG IV SCH (10:52)
--- NOTE | 2019-04-25 10:52 | PN ---
PROGRESS NOTE PULMONARY/CRITICAL CARE PROGRESS NOTE DATE OF SERVICE: April 25, 2019 This is a 54-year-old black male, status post [id number] cardiopulmonary arrest. The patient sustained an acute ST elevation myocardial infarction. He was intubated out in the field. He was successfully extubated by my partner yesterday on April 24. He has a previous history of CABG in 2005 and 4 stents subsequently. He went to the label remover after his cardiopulmonary arrest, but no interventions were performed. The patient is HIV positive. The patient apparently is currently receiving Cordarone 0.5 mg/minute and saline IV at 50 mL an hour. His O2 is 3 L by nasal cannula. In addition to all the above, he has a history of severe ischemic cardiomyopathy with a very poor ejection fraction, history of bypass grafting as mentioned in 2005, hypertension, noninsulin dependent diabetes, previous history of tobacco dependence, family history of early coronary disease and hyperlipidemia. Currently, the patient is resting comfortably as mentioned. He has no particular complaints. He is on O2, but even on room air saturations are mid-to-high 90s. PHYSICAL EXAMINATION: VITAL SIGNS: Current vital signs are reviewed. Temperature 98.2, heart rate 72, respiratory rate 19, blood pressure 121/49 and saturations on room air 95% to 96% GENERAL: Appears in no acute distress. HEENT: Examination is grossly unremarkable. Nasal O2 noted when I saw the patient this morning. Oral membranes are moist without lesion. NECK: Supple. Full range of motion. No adenopathy or thyromegaly. Neck veins are flat. CARDIOVASCULAR: Examination reveals regular rhythm and rate. Heart rate about 75 beats per minute. S1, S2 normal. Heart sounds are distant. A soft systolic murmur is noted. LUNGS: Reveal mostly clear breath sounds. No wheezes, rhonchi, or crackles. Breath sounds equal bilaterally. ABDOMEN: Soft. Bowel sounds are heard. EXTREMITIES: Are intact. No cyanosis, clubbing, or edema. SKIN: Without rash. NEUROLOGIC: Examination is nonfocal. LABS: Labs are reviewed. White count 5.9, hemoglobin 10.1, hematocrit 32.4, platelet count 132,000. Sodium and potassium normal. Chloride is 109, CO2 is 23. Anion gap 6. BUN and creatinine were 17 and 1 respectively. Microbiology is currently negative. Chest x-ray from this morning shows minimal basilar atelectasis. The patient has subsequently been extubated. The rest of the x-rays and other lab data are reviewed. MEDICATIONS: Medications are reviewed. ASSESSMENT: 1. Status post oxq-qm-uilsdiif cardiopulmonary arrest with bystander CPR and intubation by EMS in the field, with cardiopulmonary resuscitation and return of spontaneous circulation. 2. Status post successful extubation on April 24. 3. Acute ST-segment elevation myocardial infarction. 4. Severe ischemic cardiomyopathy. 5. No clear-cut evidence of anoxic brain injury. 6. Previous history of bypass grafting 2005. 7. History of hypertension. 8. History of HIV. 9. Meh-alshkbr-wgyrtqfld diabetes mellitus. 10.Previous history of tobacco dependence. 11.Family history of early coronary artery disease. 12.History of hyperlipidemia. PLAN: The patient is doing well. We will continue to follow. He was successfully extubated yesterday. He is not on any supplemental oxygen at this time. No additional recommendations are made. He is on Cordarone as per Cardiology. We will continue to follow. Prognosis is significantly guarded. MMODL / IJN: [id number] /
[2019-04-25] MEDS: AMIODARONE 300 MG in DEXTROSE 5% IN WATER 250 ML IV SCH ×4 (10:53)
[2019-04-25 11:50] LABS: Glucose,Whole Blood 256 mg/dL (75-99)
[2019-04-25 14:17] LABS: Folate, Serum 20.3 ng/mL
--- NOTE | 2019-04-25 16:05 | P.PN ---
Subjective Progress Note Date: 04/25/19 The patient is a 54-year-old male with a past medical history of coronary artery disease status post CABG and multiple stents, systolic CHF (EF 25%), HIV, hypertension, diabetes mellitus, hyperlipidemia suffered a cardiopulmonary arrest while at home, in the setting of STEMI. The patient was resuscitated by EMS wit ROSC after single shock. The patient was taken to the cath-lab where no interventions were made. The patient was extubated successfully on 04/24. He was seen at the bedside on 04/25. He notes feeling somewhat sore throughout his chest which he attributes to the CPR. He denied chest pain, SOB, nausea, vomiting, diaphoresis, or dizziness. He denied fever or chills. Objective - Vital Signs Vital signs: Vital Signs Temp 98.2 F 04/25/19 12:00 Pulse 70 04/25/19 15:36 Resp 19 04/25/19 15:30 BP 129/75 04/25/19 15:30 Pulse Ox 100 04/25/19 15:30 Intake & Output 04/24/19 04/25/19 04/25/19 18:59 06:59 18:59 Intake Total 1135.572 814 871 Output Total 1400 1555 1000 Balance -264.428 -741 -129 Weight 69 kg Intake: IV 861 714 371 Pressure Bag 36 39 21 Sodium Chloride 0.9% 1, 400 350 000 ml @ 50 mls/hr IV . Q20H JOSE Rx#:[id number] Sodium Chloride 0.9% 1, 825 275 000 ml @ 75 mls/hr IV . [id number] JOSE Rx#:[id number] Intake, IV Titration 274.572 250 Amount Amiodarone 300 mg In 250 Dextrose 5% in Water 250 ml @ 0.5 MG/MIN 25 mls/hr IV .Q10H JOSE Rx#: [id number] Dexmedetomidine/0.9% NaCl 77.691 (Pmx) 400 mcg In Empty Bag 1 bag @ Titrate IV . Q0M JOSE Rx#:[id number] Nitroglycerin-D5w Pmx 50 28.25 mg In Dextrose/Water 1 250ml.bag @ Titrate IV . Q0M JOSE Rx#:[id number] Propofol 1,000 mg In 168.631 Empty Bag 1 bag @ Titrate IV .Q0M JOSE Rx#: [id number] Oral 100 250 Output: Urine 1000 1555 1000 Urine/Stool Mix 400 Other: Voiding Method Indwelling Catheter Indwelling Catheter Indwelling Catheter ABP, PAP, CO, CI - Last Documented Arterial Blood Pressure 153/63 - Exam General: Non-toxic, in no acute distress, appears stated age, normal weight HEENT: NC/AT, anicteric sclerae, moist conjunctiva, no lid-lag, PERRLA Cardiovascular: S1/S2 wnl, no murmurs, rubs, or gallops Lungs: Clear to auscultation, normal respiratory effort, no accessory muscle use Abdominal: Soft, non-tender, non-distended, no guarding, rebound, or rigidity Skin: Warm, dry Extremities: No edema or contractures Psychiatric: Alert and oriented to person, place and time, appropriate affect Neuro: CN II-XII grossly intact, Strength 5/5 in all 4 extremities, Speech intact, Sensation to light touch grossly intact throughout - Labs CBC & Chem 7: 04/25/19 05:07 04/25/19 05:07 Labs: Abnormal Lab Results - Last 24 Hours (Table) 04/24/19 04/24/19 04/25/19 Range/Units 17:01 19:47 01:35 RBC (4.30-5.90) m/uL Hgb (13.0-17.5) gm/dL Hct (39.0-53.0) % Plt Count (150-450) k/uL Chloride (98-107) mmol/L Glucose (74-99) mg/dL POC Glucose (mg/dL) 106 H 192 H 122 H (75-99) mg/dL Vitamin B12 (200.0-944.0) pg/mL TSH (0.465-4.680) mIU/L 04/25/19 04/25/19 04/25/19 Range/Units 05:07 05:07 05:07 RBC 3.32 L (4.30-5.90) m/uL Hgb 11.1 L (13.0-17.5) gm/dL Hct 32.4 L (39.0-53.0) % Plt Count 132 L (150-450) k/uL Chloride 109 H (98-107) mmol/L Glucose 166 H (74-99) mg/dL POC Glucose (mg/dL) (75-99) mg/dL Vitamin B12 1495.0 H (200.0-944.0) pg/mL TSH (0.465-4.680) mIU/L 04/25/19 04/25/19 04/25/19 Range/Units 06:29 09:37 11:49 RBC (4.30-5.90) m/uL Hgb (13.0-17.5) gm/dL Hct (39.0-53.0) % Plt Count (150-450) k/uL Chloride (98-107) mmol/L Glucose (74-99) mg/dL POC Glucose (mg/dL) 244 H 256 H (75-99) mg/dL Vitamin B12 (200.0-944.0) pg/mL TSH 0.020 L (0.465-4.680) mIU/L Microbiology - Last 24 Hours (Table) 04/24/19 08:40 Gram Stain - Preliminary Sputum Sputum Culture - Preliminary Assessment and Plan Plan: S/p Cardiopulmonary arrest in setting of STEMI -Cardiology recs appreciated -C/w Aspirin, Brilinta, and Lipitor -Cardiac monitoring -C/w Lopressor and Amiodarone Chronic systolic CHF -C/w Losartan, Lopressor Type 2 DM -C/w MANUELA with FS -C/w Levemir 25 U qhs HTN -C/w the above HIV -C/w home meds DVT prophylaxis -IPCDs Discussed with: Patient Anticipated discharge date: 04/[address]: Home A total of 35 minutes was spent on the care of this complex patient more than 50% of the time was spent in counseling and care coordination.
[2019-04-25 16:29] LABS: Glucose,Whole Blood 187 mg/dL (75-99)
[2019-04-25 17:13] LABS: Glucose,Whole Blood 161 mg/dL (75-99)
[2019-04-25] MEDS: AMIODARONE 200 MG TAB PO SCH ×2 (18:31→20:20)
[2019-04-25 20:24] LABS: Glucose,Whole Blood 202 mg/dL (75-99)
[2019-04-25] MEDS: AMITRIPTYLINE HCL 50 MG TAB PO SCH (20:41)
--- NOTE | 2019-04-25 20:49 | PN ---
PROGRESS NOTE Mr. Munson came in with a cardiac arrest, probably related to a scar-based situation. His cardiac cath did not reveal any progression of disease. His vital signs are stable. He has some chest wall tenderness because of being shocked. He is responding. He has been extubated. He is doing remarkably well. Plan is to continue current medications, including amiodarone, and switch it to oral amiodarone. He will need an ICD. I will speak to Dr. Alvarez. Vitals are stable. JVD of 1 cm. No carotid bruit. S1, S2 heard normally. Short systolic murmur noted. Lungs reveal decent air entry. Abdomen and lower extremity exam is unchanged. Right groin is clean and dry. Plan is to continue current medications, increase activity, and I will talk to Dr. Alvarez regarding ICD. MMODL / IJN: [id number] /
[2019-04-25] MEDS ORDERED: INSULIN DETEMIR (LEVEMIR) 100 UNIT/ML SYR SQ SCH (21:00)
[2019-04-25] MEDS: INSULIN DETEMIR (LEVEMIR) 100 UNIT/ML SYR SQ SCH (22:25)
[2019-04-26 04:46] LABS: HCT 33.1 % (39.0-53.0); HGB 10.8 gm/dL (13.0-17.5); MCH 32.2 pg (25.0-35.0); MCHC 32.6 g/dL (31.0-37.0); MCV 98.9 fL (80.0-100.0); Mean Platelet Volume 8.9; Platelet Count 126 k/uL (150-450); RBC 3.35 m/uL (4.30-5.90); RDW 13.1 % (11.5-15.5); WBC 5.7 k/uL (3.8-10.6)
[2019-04-26 04:54] LABS: African American GFR (CKD) >90 (>60 ml/min/1.73 sqM); Anion Gap 8 mmol/L; Blood Urea Nitrogen 11 mg/dL (9-20); Calcium 9.5 mg/dL (8.4-10.2); Carbon Dioxide 24 mmol/L (22-30); Chloride 107 mmol/L (98-107); Glucose 137 mg/dL (74-99); Potassium 3.8 mmol/L (3.5-5.1); Sodium 139 mmol/L (137-145)
[2019-04-26 06:49] LABS: Glucose,Whole Blood 118 mg/dL (75-99)
[2019-04-26] MEDS: INSULIN ASPART (NovoLOG) 100 UNIT/ML VIAL SQ SCH ×4 (06:52→21:08)
[2019-04-26] MEDS: PANTOPRAZOLE 40 MG TABLET PO SCH (06:54)
[2019-04-26] MEDS ORDERED: POTASSIUM CHLORIDE ER 20 MEQ TAB.ER PO SCH (07:00)
[2019-04-26] MEDS: IPRATROPIUM-ALBUTEROL 3 ML NEB INHALATION SCH ×4 (07:10→19:35)
--- NOTE | 2019-04-26 08:12 | XR ---
EXAMINATION TYPE: XR chest 1V portable DATE OF EXAM: 04/26/2019 COMPARISON: Prior chest x-ray 04/25/2019 HISTORY: Abnormal chest x-ray TECHNIQUE: Single frontal view of the chest is obtained. FINDINGS: Findings are similar to prior exam. Subsegmental basilar atelectatic changes or scarring s uspected. Patient is post median sternotomy. Heart is likely stable but may show an accentuated appea ranjit due to technique. No evident pneumothorax or pleural effusion. IMPRESSION: Rotated exam. Probable atelectasis. No significant interval change. Additional findings above.
--- NOTE | 2019-04-26 08:29 | PN ---
PROGRESS NOTE DATE OF SERVICE: April 26, 2019 A 54-year-old black male status post qlr-li-robhmnei cardiopulmonary arrest. He apparently sustained an acute ST-segment elevation myocardial infarction. He was intubated out in the field by EMS and successfully was extubated by my partner on April 24. The patient had a previous history of bypass grafting in 2005 and subsequent to that 4 stents placed. He went to the operations label clerk after his cardiopulmonary arrest, but no interventions were performed. The patient is HIV positive. Apparently there was some talk that he may receive a pacemaker AICD device in the next day or 2. Currently, the patient is remarkably much improved. He is currently just receiving a 0.9 IV at 50 mL an hour. Yesterday he was on Cordarone at 0.5 mg/minute. He is not requiring any supplemental oxygen. He does have a history of severe ischemic cardiomyopathy with a very poor ejection fraction, previous bypass grafting in 2005, benign essential hypertension, pet-kluxsnc-vjjklovqz diabetes mellitus, previous history of tobacco dependence, family history of early coronary artery disease, and hyperlipidemia. Currently, the patient is resting comfortably. He has no major complaints or issues. From my perspective, the patient could be transferred out to [address] [place] [address]. We will confirm that with Cardiology. PHYSICAL EXAMINATION: VITAL SIGNS: Current vital signs include a temperature which is 98.4, heart rate which is 82, respiratory rate 24, blood pressure 147/86, mean 106, and saturations are 97% on room air. GENERAL: Appears in no acute distress. HEENT: Examination is grossly unremarkable. Mucous membranes are moist. No supplemental oxygen. NECK: Supple. Full range of motion. No adenopathy or thyromegaly. Neck veins are flat. CARDIOVASCULAR: Examination reveals regular rhythm and rate. Heart rate mid 80s. S1, S2 normal. No distinct murmurs noted. LUNGS: Reveal mostly clear breath sounds. A few scattered mild rhonchi. No wheezes or crackles. ABDOMEN: Soft. Bowel sounds are heard. EXTREMITIES: Are intact. No cyanosis, clubbing, or edema. SKIN: Without rash. NEUROLOGIC: Examination is nonfocal. LABS: Labs are reviewed. White count 5.7, hemoglobin 10.8, hematocrit 33.1, platelet count 126,000. Electrolyte profile is completely normal including sodium, potassium, chloride, CO2, anion gap, BUN and creatinine. Chest x-ray was done this morning. It shows evidence of relatively clear lung calles. There is obviously previous surgery that was done in the past. Microbiologic studies are thus far negative MEDICATIONS: Medications are reviewed. ASSESSMENT: 1. Status post fdf-wk-skujbyzo cardiopulmonary arrest with bystander CPR and intubation by EMS in the field with cardiopulmonary resuscitation and return of spontaneous circulation. 2. Status post successful extubation on April 24. 3[address] Acute ST-segment elevation myocardial infarction. 4. Severe ischemic cardiomyopathy. 5. No clear-cut evidence of anoxic brain injury. 6. Previous history of bypass grafting, 2005. 7. History of hypertension. 8. History of HIV. 9. Wjo-tnooqrp-kjwndtxeu diabetes mellitus. 10.Previous history of tobacco dependence. 11.Family history of early coronary artery disease. 12.History of hyperlipidemia. PLAN: The patient's Cordarone has been weaned off. The patient is doing reasonably well. Not requiring any supplemental oxygen. There was some talk of an AICD/pacemaker insertion in the next day or so. The patient is well enough to be transferred out to [address] [place] [address]. Currently, he is not voicing any complaints. Additional recommendations and suggestions are forthcoming. Overall prognosis though remains guarded. MMODL / IJN: [id number] /
[2019-04-26] MEDS: CLEVIDIPINE BUTYRATE 25 MG in EMPTY BAG 1 BAG IV SCH (08:53)
[2019-04-26] MEDS: ATORVASTATIN 80 MG TAB PO SCH (09:10)
[2019-04-26] MEDS: AMIODARONE 200 MG TAB PO SCH ×2 (09:10→21:07)
[2019-04-26] MEDS: LOSARTAN 50 MG TAB PO SCH (09:11)
[2019-04-26] MEDS: TICAGRELOR 90 MG TAB PO SCH ×2 (09:11→21:07)
[2019-04-26] MEDS: FLUCONAZOLE 100 MG TAB PO SCH (09:11)
[2019-04-26] MEDS: METOPROLOL TARTRATE 50 MG TAB PO SCH ×2 (09:11→21:07)
[2019-04-26] MEDS: ASPIRIN 81 MG PO SCH (09:11)
[2019-04-26] MEDS: Bictegrav/Emtricit/Tenofov Ala [Biktarvy 50-200-25 Mg Tablet] PO SCH (09:12)
--- NOTE | 2019-04-26 10:15 | PN ---
PROGRESS NOTE Mr. Munson presented with a cardiac arrest. Cardiac cath revealed no significant progression of disease, probably a scar based VT and sudden . He is going to have an ICD on this admission. I spoke to Dr. Alvarez. Vitals are stable. Urine output is decent. JVD is 1 cm. No carotid bruit. S1, S2 heard normally. Short systolic murmur. Lungs are clear. Abdomen and lower extremity exam unchanged. Plan is to increase the losartan to 100 mg daily, supplement potassium. Obtain echocardiogram and hopefully ICD will be performed this . MMODL / IJN: [id number] /
--- NOTE | 2019-04-26 10:53 | P.PN ---
Subjective Progress Note Date: 04/26/19 The patient is a 54-year-old male with a past medical history of coronary artery disease status post CABG and multiple stents, systolic CHF (EF 25%), HIV, hypertension, diabetes mellitus, hyperlipidemia suffered a cardiopulmonary arrest while at home, in the setting of STEMI. The patient was resuscitated by EMS wit ROSC after single shock. The patient was taken to the cath-lab where no interventions were made. The patient was extubated successfully on 04/24. He was seen at the bedside on 04/26. He notes improvement in his chest soreness from the CPR. He otherwise was in good spirits and denied active complaints. Denied shortness of breath, nausea, diaphoresis, or dizziness. Cardiology recommendations appreciated w/ plans for AICD this . Objective - Vital Signs Vital signs: Vital Signs Temp 98.8 F 04/26/19 08:00 Pulse 87 04/26/19 09:30 Resp 24 04/26/19 09:30 BP 145/79 04/26/19 09:30 Pulse Ox 98 04/26/19 09:30 Intake & Output 04/25/19 04/26/19 04/26/19 18:59 06:59 18:59 Intake Total 1330 1036 212 Output Total 1300 750 220 Balance 30 286 -8 Weight 70.4 kg Intake: IV 530 636 212 Pressure Bag 30 36 12 Sodium Chloride 0.9% 1, 500 600 200 000 ml @ 50 mls/hr IV . Q20H JOSE Rx#:[id number] Intake, IV Titration 250 Amount Amiodarone 300 mg In 250 Dextrose 5% in Water 250 ml @ 0.5 MG/MIN 25 mls/hr IV .Q10H JOSE Rx#: [id number] Oral 550 400 Output: Urine 1300 750 220 Other: Voiding Method Indwelling Catheter Urinal Urinal ABP, PAP, CO, CI - Last Documented Arterial Blood Pressure 160/74 - Exam General: Non-toxic, in no acute distress, appears stated age, normal weight HEENT: NC/AT, anicteric sclerae, moist conjunctiva, no lid-lag, PERRLA Cardiovascular: S1/S2 wnl, no murmurs, rubs, or gallops, minimal chest wall tenderness Lungs: Clear to auscultation, normal respiratory effort, no accessory muscle use Abdominal: Soft, non-tender, non-distended, no guarding, rebound, or rigidity Skin: Warm, dry Extremities: No edema or contractures Psychiatric: Alert and oriented to person, place and time, appropriate affect Neuro: CN II-XII grossly intact, Strength 5/5 in all 4 extremities, Speech intact, Sensation to light touch grossly intact throughout - Labs CBC & Chem 7: 04/26/19 04:30 04/26/19 04:30 Labs: Abnormal Lab Results - Last 24 Hours (Table) 04/25/19 04/25/19 04/25/19 Range/Units 05:07 09:37 11:49 RBC (4.30-5.90) m/uL Hgb (13.0-17.5) gm/dL Hct (39.0-53.0) % Plt Count (150-450) k/uL Glucose (74-99) mg/dL POC Glucose (mg/dL) 256 H (75-99) mg/dL Vitamin B12 1495.0 H (200.0-944.0) pg/mL TSH 0.020 L (0.465-4.680) mIU/L 04/25/19 04/25/19 04/25/19 Range/Units 16:27 17:11 20:23 RBC (4.30-5.90) m/uL Hgb (13.0-17.5) gm/dL Hct (39.0-53.0) % Plt Count (150-450) k/uL Glucose (74-99) mg/dL POC Glucose (mg/dL) 187 H 161 H 202 H (75-99) mg/dL Vitamin B12 (200.0-944.0) pg/mL TSH (0.465-4.680) mIU/L 04/26/19 04/26/19 04/26/19 Range/Units 04:30 04:30 06:47 RBC 3.35 L (4.30-5.90) m/uL Hgb 10.8 L (13.0-17.5) gm/dL Hct 33.1 L (39.0-53.0) % Plt Count 126 L (150-450) k/uL Glucose 137 H (74-99) mg/dL POC Glucose (mg/dL) 118 H (75-99) mg/dL Vitamin B12 (200.0-944.0) pg/mL TSH (0.465-4.680) mIU/L Assessment and Plan Plan: S/p Cardiopulmonary arrest in setting of STEMI -Cardiology recs appreciated -C/w Aspirin, Brilinta, and Lipitor -Cardiac monitoring -C/w Lopressor and Amiodarone -Planned for AICD on 04/28 Chronic systolic CHF -C/w Losartan, Lopressor -Echocardiogram ordered by Cardiology Low TSH -Free T4 wnl -Obtain Free T3 -Possibly due to critical care illness and cardiac arrest Thrombocytopenia -Possibly due to critical illness -Monitor for now Normocytic anemia -B12 and Folate wnl -Monitor CBC Type 2 DM -C/w MANUELA with FS -C/w Levemir 25 U qhs HTN -C/w the above HIV -C/w home meds DVT prophylaxis -IPCDs Discussed with: Patient, partner Anticipated discharge date: 04/[address]: Home A total of 35 minutes was spent on the care of this complex patient more than 50% of the time was spent in counseling and care coordination.
[2019-04-26 11:30] LABS: Glucose,Whole Blood 186 mg/dL (75-99)
--- NOTE | 2019-04-26 12:01 | ECHOF ---
Referral Reason:cardiac arrest MEASUREMENTS -------- HEIGHT: 170.2 cm WEIGHT: 70.3 kg BP: 159/73 RVIDd: 3.1 cm (< 3.3) IVSd: 1.2 cm (0.6 - 1.1) LVIDd: 4.0 cm (3.9 - 5.3) LVPWd: 1.2 cm (0.6 - 1.1) IVSs: 1.4 cm LVIDs: 3.6 cm LVPWs: 1.5 cm LA Diam: 4.4 cm (2.7 - 3.8) LAESV Index (A-L): 30.26 ml/m Ao Diam: 3.2 cm (2.0 - 3.7) AV Cusp: 1.7 cm (1.5 - 2.6) LA Diam: 3.2 cm (2.7 - 3.8) MV EXCURSION: 21.866 mm (> 18.000) MV EF SLOPE: 92 mm/s (70 - 150) EPSS: 1.1 cm MV E Jean: 0.57 m/s MV DecT: 184 ms MV A Jean: 0.67 m/s MV E/A Ratio: 0.84 RAP: 5.00 mmHg RVSP: 14.00 mmHg TAPSE: 11.45 mm FINDINGS -------- Undetermined rhythm. This was a techncally difficult study with suboptimal views, , Lumason utilized for enhancement of im ages. The left ventricular size is normal. There is mild concentric left ventricular hypertrophy. Overa ll left ventricular systolic function is moderate-severely impaired with, an EF between 30 - 35 %. Basal inferior LV wall motion is hypokinetic. Apical septum LV wall motion is hypokinetic. Sept al Hypokinesis The right ventricle is normal in size. The right ventricular systolic function is mildly impaired. The left atrial size is normal. The right atrial size is normal. 5.0mg OF Lumason UTLIZED: 2 OR MORE WALL SEGMENTS NOT VISUALIZED. There is mild aortic valve sclerosis. There is no evidence of aortic regurgitation. Mild mitral annular calcification present. Mild mitral regurgitation is present. Moderate thicken ing of the anterior mitral valve leaflet. Cannot rule out vegetation. Mild tricuspid regurgitation present. Right ventricular systolic pressure is normal at < 35 mmHg. There is no evidence of pulmonary hypertension. There is no pulmonic regurgitation present. The aortic root size is normal. There is no pericardial effusion. Can not excluded Possible AMVL Vegetation, CARMINA Recommended. CONCLUSIONS -------- 1. Undetermined rhythm. 2. This was a techncally difficult study with suboptimal views, , Lumason utilized for enhancement of images. 3. The left ventricular size is normal. 4. There is mild concentric left ventricular hypertrophy. 5. Overall left ventricular systolic function is moderate-severely impaired with, an EF between 30 - 35 %. 6. Basal inferior LV wall motion is hypokinetic. 7. Apical septum LV wall motion is hypokinetic. 8. Septal Hypokinesis 9. The right ventricle is normal in size. 10. The right ventricular systolic function is mildly impaired. 11. The left atrial size is normal. 12. The right atrial size is normal. 13. 5.0mg OF Lumason UTLIZED: 2 OR MORE WALL SEGMENTS NOT VISUALIZED. 14. There is mild aortic valve sclerosis. 15. Mild mitral annular calcification present. 16. Mild mitral regurgitation is present. 17. Moderate thickening of the anterior mitral valve leaflet. 18. Cannot rule out vegetation. 19. Mild tricuspid regurgitation present. 20. Right ventricular systolic pressure is normal at < 35 mmHg. 21. There is no evidence of pulmonary hypertension. 22. There is no pulmonic regurgitation present. 23. The aortic root size is normal. 24. There is no pericardial effusion. 25. Can not excluded Possible AMVL Vegetation, CARMINA Recommended. [employer]KER AND INSTALLER: Bing Smiley RDCS
--- NOTE | 2019-04-26 15:22 | P.CRDCN ---
History of Present Illness History of present illness: This is Dr. Alvarez dictating a consult on this patient The patient was interviewed by me Chart was reviewed Discussed with Dr. 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 CORAZON Treviño Consult Dr. Cota, infectious disease Evaluate mitral valve, possible ACRMINA Ultimately this gentleman would need a single chamber ICD Thyroid evaluation Discussed with patient's nurse today Past Medical History Past Medical History: Asthma, Chest Pain / Angina, Diabetes Mellitus, GERD/Reflux, Hyperlipidemia, Hypertension, Myocardial Infarction ([place]), Osteoarthritis (OA) Additional Past Medical History / Comment(s): HIV, chronic low back pain Last Myocardial Infarction Date:: 2005 History of Any Multi-Drug Resistant Organisms: None Reported Past Surgical History: Coronary Bypass/CABG, Heart Catheterization Additional Past Surgical History / Comment(s): apoorva carpal tunnel, CABG 4 VESSEL- 2005 Past Anesthesia/Blood Transfusion Reactions: No Reported Reaction Date of Last Stent Placement:: 2017 Past Psychological History: Anxiety Smoking Status: Former smoker Past Alcohol Use History: Unable to Obtain Past Drug Use History: Unable to Obtain - Past Family History Sister(s) Family Medical History: Coronary Artery Disease (CAD) Father Family Medical History: Cancer Additional Family Medical History / Comment(s): THROAT Mother Family Medical History: Cancer Medications and Allergies Home Medications Medication Instructions Recorded Confirmed Type Olmesartan Medoxomil [Benicar] 40 mg PO DAILY 04/23/14 04/23/19 History Esomeprazole Magnesium [NexIUM] 40 mg PO DAILY 05/29/14 04/23/19 History ALPRAZolam [Xanax] 2 mg PO BID PRN 10/03/16 04/23/19 History Atorvastatin [Lipitor] 80 mg PO HS 10/03/16 04/23/19 History Albuterol Inhaler [Ventolin Hfa 1 - 2 puff INHALATION RT-Q6H PRN 03/19/18 04/23/19 History Inhaler] Aspirin 325 mg PO DAILY 03/19/18 04/23/19 History Bictegrav/Emtricit/Tenofov Ala 1 tab PO DAILY 03/19/18 04/23/19 History [Biktarvy 50-200-25 mg Tablet] Nitroglycerin Sl Tabs [Nitrostat] 0.4 mg SUBLINGUAL Q5M PRN 03/19/18 04/23/19 History Insulin Glargine,Hum.rec.anlog 30 units SQ DAILY 09/14/18 04/23/19 History [Basaglar Kwikpen U-100] Amitriptyline HCl [Elavil] 50 mg PO HS 04/23/19 04/23/19 History Fluconazole [Diflucan] 100 mg PO DAILY 04/23/19 04/23/19 History HYDROcodone/APAP 10-325MG [[place] 1 tab PO Q6HR PRN 04/23/19 04/23/19 History 10-325] Metoprolol Tartrate [Lopressor] 25 mg PO BID 04/23/19 04/23/19 History Multivitamins, Thera [Multivitamin 1 tab PO DAILY 04/23/19 04/23/19 History (formulary)] Ticagrelor [Brilinta] 90 mg PO BID #30 tab 04/25/19 Rx Allergies Allergy/AdvReac Type Severity Reaction Status Date / Time No Known Allergies Allergy Verified 04/23/19 17:09 Physical Exam Vitals: Vital Signs Temp Pulse Resp BP Pulse Ox 04/26/19 13:00 79 32 H 148/86 97 04/26/19 12:30 72 29 H 148/86 97 04/26/19 12:00 98.8 F 75 12 148/86 97 04/26/19 11:30 72 20 97 04/26/19 11:00 75 26 H 98 04/26/19 10:30 76 96 04/26/19 10:00 78 24 145/79 97 04/26/19 09:30 87 24 145/79 98 04/26/19 09:00 86 19 138/105 98 04/26/19 08:30 82 14 138/105 98 04/26/19 08:00 98.8 F 82 14 147/86 98 04/26/19 07:30 101 H 24 147/86 85 L 10/08/19 07:20 82 04/26/19 07:11 80 04/26/19 07:00 84 13 145/89 97 04/26/19 06:30 82 11 L 94 L 04/26/19 06:00 84 37 H 129/101 93 L 04/26/19 05:30 84 24 96 04/26/19 05:00 79 17 145/91 96 04/26/19 04:30 75 16 95 04/26/19 04:00 98.4 F 76 17 141/87 96 04/26/19 03:30 76 20 96 04/26/19 03:00 73 16 136/88 97 04/26/19 02:30 71 13 97 04/26/19 02:00 68 12 195/170 97 04/26/19 01:30 78 29 H 195/170 96 04/26/19 01:00 69 18 131/97 97 04/26/19 00:30 67 11 L 95 04/26/19 00:00 98.2 F 69 14 134/83 97 04/25/19 23:30 72 25 H 98 04/25/19 23:00 70 17 138/90 95 04/25/19 22:30 72 13 97 04/25/19 22:00 109 H 38 H 137/81 94 L 04/25/19 21:30 85 20 97 04/25/19 21:00 86 15 98 04/25/19 20:30 87 24 143/90 97 04/25/19 20:00 98.2 F 82 22 145/80 98 04/25/19 19:31 77 04/25/19 19:30 77 16 145/84 99 04/25/19 19:18 76 04/25/19 19:00 76 15 138/88 97 04/25/19 18:30 76 16 138/88 97 04/25/19 18:00 74 17 141/90 04/25/19 17:30 84 18 128/81 97 04/25/19 17:00 75 21 127/75 97 04/25/19 16:30 72 22 136/82 98 04/25/19 16:00 98.4 F 74 27 H 138/73 98 04/25/19 15:36 70 04/25/19 15:30 68 19 129/75 100 04/25/19 15:24 69 Intake and Output 04/26/19 04/26/19 04/26/19 06:59 14:59 22:59 Intake Total 424 371 Output Total 225 520 Balance 199 -149 Intake: IV 424 371 Pressure Bag 24 21 Sodium Chloride 0.9% 1, 400 350 000 ml @ 50 mls/hr IV . Q20H [facility] Rx#:[id number] Output: Urine 225 520 Other: Voiding Method Urinal Urinal # Voids 1 # Bowel Movements 1 Weight 70.4 kg ABP, PAP, CO, CI - Last 8 Hours Arterial Blood Pressure 158/75 Arterial Blood Pressure 140/70 Arterial Blood Pressure 151/74 Arterial Blood Pressure 153/78 Arterial Blood Pressure 153/74 Arterial Blood Pressure 153/69 Arterial Blood Pressure 165/70 Arterial Blood Pressure 160/74 Arterial Blood Pressure 135/66 Arterial Blood Pressure 158/75 Results 04/26/19 04:30 04/26/19 04:30 CBC 04/26/19 Range/Units 04:30 WBC 5.7 (3.8-10.6) k/uL RBC 3.35 L (4.30-5.90) m/uL Hgb 10.8 L (13.0-17.5) gm/dL Hct 33.1 L (39.0-53.0) % Plt Count 126 L (150-450) k/uL Comprehensive Metabolic Panel 04/26/19 Range/Units 04:30 Sodium 139 (137-145) mmol/L Potassium 3.8 (3.5-5.1) mmol/L Chloride 107 (98-107) mmol/L Carbon Dioxide 24 (22-30) mmol/L BUN 11 (9-20) mg/dL Creatinine 0.90 (0.66-1.25) mg/dL Glucose 137 H (74-99) mg/dL Calcium 9.5 (8.4-10.2) mg/dL Current Medications Generic Name Dose Route Start Last Admin Trade Name Freq PRN Reason Stop Dose Admin Acetaminophen 650 mg 04/23/19 16:58 04/25/19 17:47 Tylenol Tab PO 650 mg Q6HR PRN Administration Mild Pain or Fever > 100.5 Hydrocodone Bitart/Acetaminophen 1 each 04/24/19 20:36 04/25/19 22:24 [place] 10 PO 1 each Q6HR PRN Administration Pain Albuterol/Ipratropium 3 ml 04/23/19 20:00 04/26/19 10:52 Duoneb 0.5 Mg-3 Mg/3 Ml Soln INHALATION Not Given RT-QID JOSE Amiodarone HCl 400 mg 04/25/19 18:00 04/26/19 09:10 Cordarone PO 400 mg BID JOSE Administration Amitriptyline HCl 50 mg 04/24/19 21:00 04/25/19 20:41 Elavil PO 50 mg HS JOSE Administration Aspirin 81 mg 04/24/19 09:00 04/26/19 09:11 Aspirin PO 81 mg DAILY JOSE Administration Atorvastatin Calcium 80 mg 04/24/19 09:00 04/26/19 09:10 Lipitor PO 80 mg DAILY JOSE Administration Fluconazole 100 mg 04/24/19 09:00 04/26/19 09:11 Diflucan PO 100 mg DAILY JOSE Administration Sodium Chloride 1,000 mls @ 50 mls/hr 04/24/19 06:30 04/25/19 20:44 Saline 0.9% IV 50 mls/hr .Q20H JOSE Administration Clevidipine 25 mg/ IV Solution 50 mls @ 2 mls/hr 04/24/19 10:00 04/26/19 08:53 IV Not Given .Q24H JOSE Protocol 1 MG/HR Insulin Aspart 0 unit 04/23/19 17:30 04/26/19 12:15 Novolog SQ 2 unit ACHS JOSE Administration Protocol Insulin Detemir 25 unit 04/25/19 21:00 04/25/19 22:25 Levemir SQ 25 unit HS JOSE Administration Losartan Potassium 100 mg 04/26/19 09:00 04/26/19 09:11 Cozaar PO 100 mg DAILY JOSE Administration Metoprolol Tartrate 5 mg 04/24/19 06:31 Lopressor IVP Q4HR PRN Heart Rate over 100BPM Metoprolol Tartrate 50 mg 04/24/19 09:00 04/26/19 09:11 Lopressor PO 50 mg BID JOSE Administration Naloxone HCl 0.2 mg 04/23/19 16:58 Narcan IV Q2M PRN Opioid Reversal Bictegrav/Emtricit/ 1 tab 04/24/19 09:00 04/26/19 09:12 Tenofov Ala [ PO Not Given Biktarvy 50-200-25 DAILY JOSE Mg Tablet] Pantoprazole Sodium 40 mg 04/26/19 07:30 04/26/19 06:54 Protonix PO 40 mg AC-BRKFST JOSE Administration Ticagrelor 90 mg 04/23/19 21:00 04/26/19 09:11 Brilinta PO 90 mg BID JOSE Administration Intake and Output 04/26/19 04/26/19 04/26/19 06:59 14:59 22:59 Intake Total 424 371 Output Total 225 520 Balance 199 -149 Intake: IV 424 371 Pressure Bag 24 21 Sodium Chloride 0.9% 1, 400 350 000 ml @ 50 mls/hr IV . Q20H [facility] Rx#:[id number] Output: Urine 225 520 Other: Voiding Method Urinal Urinal # Voids 1 # Bowel Movements 1 Weight 70.4 kg 04/26/19 04:30 04/26/19 04:30
[2019-04-26] MEDS: SODIUM CHLORIDE 0.9% 1,000 ML IV SCH (16:02)
[2019-04-26 16:46] LABS: Glucose,Whole Blood 160 mg/dL (75-99)
[2019-04-26] MEDS: HYDROcodone/APAP 10-325MG 1 EACH TAB PO PRN ×2 (18:01→23:26)
[2019-04-26 20:59] LABS: Glucose,Whole Blood 240 mg/dL (75-99)
[2019-04-26] MEDS: AMITRIPTYLINE HCL 50 MG TAB PO SCH (21:07)
[2019-04-26] MEDS: INSULIN DETEMIR (LEVEMIR) 100 UNIT/ML SYR SQ SCH (21:07)
[2019-04-27] MEDS: ACETAMINOPHEN TAB 325 MG TAB PO PRN (03:43)
[2019-04-27 06:16] LABS: Glucose,Whole Blood 118 mg/dL (75-99)
[2019-04-27] MEDS: INSULIN ASPART (NovoLOG) 100 UNIT/ML VIAL SQ SCH ×6 (06:18→20:45)
[2019-04-27] MEDS: PANTOPRAZOLE 40 MG TABLET PO SCH (06:31)
--- NOTE | 2019-04-27 08:13 | XR ---
EXAMINATION TYPE: XR chest 1V portable DATE OF EXAM: 04/27/2019 COMPARISON: 04/26/2019 HISTORY: Shortness of breath TECHNIQUE: Single frontal view of the chest is obtained. FINDINGS: There is no focal air space opacity, pleural effusion, or pneumothorax seen. The cardiac silhouette size is within normal limits. The osseous structures are intact. Postsurgical changes ar e seen. There is limited inspiration with no overt failure. Subsegmental changes at the lung bases. IMPRESSION: Right basilar subsegmental changes improved likely on the basis of atelectasis given the reduced degree of inspiration. Correlate clinically to exclude infiltrate.
[2019-04-27] MEDS: IPRATROPIUM-ALBUTEROL 3 ML NEB INHALATION SCH ×4 (08:31→20:54)
[2019-04-27] MEDS: AMIODARONE 200 MG TAB PO SCH ×2 (10:25→20:43)
[2019-04-27] MEDS: METOPROLOL TARTRATE 50 MG TAB PO SCH ×2 (10:25→20:43)
[2019-04-27] MEDS: ATORVASTATIN 80 MG TAB PO SCH (10:25)
[2019-04-27] MEDS: ASPIRIN 81 MG PO SCH (10:26)
[2019-04-27] MEDS: FLUCONAZOLE 100 MG TAB PO SCH (10:26)
[2019-04-27] MEDS: LOSARTAN 50 MG TAB PO SCH (10:26)
[2019-04-27] MEDS: TICAGRELOR 90 MG TAB PO SCH ×2 (10:26→20:43)
[2019-04-27] MEDS: Bictegrav/Emtricit/Tenofov Ala [Biktarvy 50-200-25 Mg Tablet] PO SCH (10:59)
[2019-04-27 11:44] LABS: Glucose,Whole Blood 181 mg/dL (75-99)
--- NOTE | 2019-04-27 11:50 | P.PN ---
Subjective Progress Note Date: 04/27/19 The patient is a 54-year-old male with a past medical history of coronary artery disease status post CABG and multiple stents, systolic CHF (EF 25%), HIV, hypertension, diabetes mellitus, hyperlipidemia suffered a cardiopulmonary arrest while at home, in the setting of STEMI. The patient was resuscitated by EMS wit ROSC after single shock. The patient was taken to the cath-lab where no interventions were made. The patient was extubated successfully on 04/24. The patient's sputum culture grew MRSA. The patient was placed on droplet precautions. ID was consulted. The patient was seen and examined at the bedside. He notes continued mild substernal chest discomfort. Denied any additional SOB. Denied nausea, vomiting, diaphoresis, or dizziness. Denied cough, fever, or chills. Objective - Vital Signs Vital signs: Vital Signs Temp 98.1 F 04/27/19 08:00 Pulse 80 04/27/19 08:40 Resp 18 04/27/19 08:00 BP 127/71 04/27/19 08:00 Pulse Ox 98 04/27/19 08:00 Intake & Output 04/26/19 04/27/19 04/27/19 18:59 06:59 18:59 Intake Total 731 240 Output Total 520 Balance 211 240 Weight 70.2 kg Intake: IV 371 Pressure Bag 21 Sodium Chloride 0.9% 1, 350 000 ml @ 50 mls/hr IV . Q20H [facility] Rx#:[id number] Oral 360 240 Output: Urine 520 Other: Voiding Method Urinal Urinal Urinal # Voids 1 1 # Bowel Movements 1 ABP, PAP, CO, CI - Last Documented Arterial Blood Pressure 158/75 - Exam General: Non-toxic, in no acute distress, appears stated age, normal weight HEENT: NC/AT, anicteric sclerae, moist conjunctiva, no lid-lag, PERRLA Cardiovascular: S1/S2 wnl, no murmurs, rubs, or gallops, minimal sternal chest wall tenderness Lungs: Clear to auscultation, normal respiratory effort, no accessory muscle use Abdominal: Soft, non-tender, non-distended, no guarding, rebound, or rigidity Skin: Warm, dry Extremities: No edema or contractures Psychiatric: Alert and oriented to person, place and time, appropriate affect Neuro: CN II-XII grossly intact, Strength 5/5 in all 4 extremities, Speech intact, Sensation to light touch grossly intact throughout - Labs CBC & Chem 7: 04/26/19 04:30 04/26/19 04:30 Labs: Abnormal Lab Results - Last 24 Hours (Table) 04/26/19 04/26/19 04/26/19 Range/Units 11:28 16:44 20:57 POC Glucose (mg/dL) 186 H 160 H 240 H (75-99) mg/dL 04/27/19 Range/Units 06:14 POC Glucose (mg/dL) 118 H (75-99) mg/dL Microbiology - Last 24 Hours (Table) 04/24/19 08:40 Gram Stain - Final Sputum Sputum Culture - Final Methicillin resist S. aureus Assessment and Plan Plan: S/p Cardiopulmonary arrest in setting of STEMI -Cardiology recs appreciated -C/w Aspirin, Brilinta, and Lipitor -Cardiac monitoring -C/w Lopressor and Amiodarone -Plan for AICD by Dr Alvarez, pending possible CARMINA in setting of MRSA colonization. ID consulted Chronic systolic CHF -C/w Losartan, Lopressor -Echocardiogram showing EF 30-35% MRSA colonization -F/u ID recs -Placed on droplet precautions -Will likely need decolonization in setting of HIV infection and high risk cardiac disease Low TSH -Free T4 and Free T3 wnl -Possibly due to critical care illness and cardiac arrest Thrombocytopenia -Possibly due to critical illness -Monitor for now Normocytic anemia -B12 and Folate wnl -Monitor CBC Type 2 DM -C/w MANUELA with FS -C/w Levemir 25 U qhs. Start Lispro 5 U TID-AC HTN -C/w the above HIV -C/w home meds DVT prophylaxis -IPCDs Discussed with: Patient Anticipated discharge date: 04/[address]: Home A total of 35 minutes was spent on the care of this complex patient more than 50% of the time was spent in counseling and care coordination.
[2019-04-27] MEDS: CLEVIDIPINE BUTYRATE 25 MG in EMPTY BAG 1 BAG IV SCH (11:59)
--- NOTE | 2019-04-27 12:11 | P.PN ---
Subjective Progress Note Date: 04/27/19 This is a 54-year-old white male presents to the emergency room by EMS, patient had a witnessed cardiac arrest. The fire department responded to the call, initial rhythm was ventricular fibrillation, patient was shocked 1, and he was given amiodarone by EMS 150 mg IV push. Patient was intubated in the field, brought into the emergency room, and his EKG showed anterior ST elevation myocardial infarction. Patient underwent cardiac catheterization, however no intervention was felt to be necessary. Patient was found to have significant cardiac disease, and the only graft which was open was the one which was stented by Dr. Sun, this was stented about a year ago SVG to obtuse marginal. It was felt the patient could not be stented because of his diffuse coronary artery disease, and all other grafts were occluded.hence the patient was sent to the intensive care unit on mechanical ventilation, and I was asked to see him on consultation. Patient is known to have history of severe LV dysfunction, severe coronary artery disease and previous CABG, severe cardiomyopathy it was also felt in the past that his SVG to obtuse margin was his Lifeline.he was seen in the past by cardiac surgery, and he was not felt to be poor candidate for redo CABG.patient also had placement of impella device by Dr. Sun back in April of 2018. Patient has evidence of ventricular tachycardia and he is to have an ICD implantation on this admission. Patient had an echocardiogram with Doppler study performed which raised suspicion of a vegetation on the mitral valve and for this reason blood cultures have been ordered today, consultation with Dr. Cota, and CARMINA is scheduled. Blood pressure 127/70 with a heart rate of 80, 98% on room air. Objective - Vital Signs Vital signs: Vital Signs Temp 98.1 F 04/27/19 08:00 Pulse 80 04/27/19 08:40 Resp 18 04/27/19 08:00 BP 127/71 04/27/19 08:00 Pulse Ox 98 04/27/19 08:00 Intake & Output 04/26/19 04/27/19 04/27/19 18:59 06:59 18:59 Intake Total 731 240 Output Total 520 Balance 211 240 Weight 70.2 kg Intake: IV 371 Pressure Bag 21 Sodium Chloride 0.9% 1, 350 000 ml @ 50 mls/hr IV . Q20H [facility] Rx#:[id number] Oral 360 240 Output: Urine 520 Other: Voiding Method Urinal Urinal Urinal # Voids 1 1 # Bowel Movements 1 ABP, PAP, CO, CI - Last Documented Arterial Blood Pressure 158/75 - Exam GENERAL: revealed a 54-year-old -[place] male, on mechanical ventilation, sedated, on propofol, in no distress. ENT: dry mucous membranes, no neck masses, slight JVD is noted. EYES: anicteric,PERRLA, EOMI, PULMONARY: Good breath sounds bilaterally. no crackles, no rhonchi and no wheezes. CARDIOVASCULAR: normal S1 and S2, no S3 gallop, no murmur. No rubs. ABDOMEN: Soft and nontender with normal bowel sounds. megaly, no rebound, no guarding, positive bowel sounds. SKIN: Skin tracy rashes. NEUROLOGIC: unable to assess, patient is unresponsive, just received propofol, and fentanyl before arrival to the ICU. Not even responding to painful stimuli. MUSCULOSKELETAL: good muscle tone and otherwise unremarkable. LYMPHATICS: No significant lymphadenopathy is noted - Labs CBC & Chem 7: 04/26/19 04:30 04/26/19 04:30 Labs: Abnormal Lab Results - Last 24 Hours (Table) 04/26/19 04/26/19 04/27/19 Range/Units 16:44 20:57 06:14 POC Glucose (mg/dL) 160 H 240 H 118 H (75-99) mg/dL 04/27/19 Range/Units 11:40 POC Glucose (mg/dL) 181 H (75-99) mg/dL Microbiology - Last 24 Hours (Table) 04/24/19 08:40 Gram Stain - Final Sputum Sputum Culture - Final Methicillin resist S. aureus Assessment and Plan Plan: IMPRESSION / ASSESSMENT: #1 Out of hospital cardiac arrest #2 Known underlying coronary artery disease status post coronary artery bypass grafting #3 Recent coronary angiogram did not reveal any progression of coronary artery disease line severe LV dysfunction ejection fraction 30 of and 35% #4 Basal inferior LV hypokinesis, apical LV septum hypokinesis #5Anterior mitral leaflet thickened, cannot rule out vegetation #6 Retroviral positive #7 Diabetes #8 hypertension #9 Twelve-lead ECG shows sinus rhythm normal CA narrow QRS 108 ms, T-wave inversions in V5 and V6 #10 MRSA positive in the sputum #11 TSH is suppressed Plan Dr. Cota has been consulted, patient is also scheduled today to undergo a CARMINA with Dr. Sun. Patient will ultimately undergo single-chamber AICD implantation by Dr. Alvarez. Tentatively at this time it is scheduled for later this week. DNP note has been reviewed, I agree with a documented findings and plan of care. Patient was seen and examined.
[2019-04-27] MEDS ORDERED: fentaNYL (PF) 50 MCG/ML 2 ML AMP ONE (12:54)
[2019-04-27] MEDS: BENZOCAINE SPRAY 1 CAN MUCOUS MEM ONE ×2 (13:05→13:10)
[2019-04-27] MEDS ORDERED: SODIUM CHLORIDE 0.9% 1,000 ML IV ONE (13:08)
[2019-04-27] MEDS: fentaNYL (PF) 50 MCG/ML 2 ML AMP IVP ONE ×2 (13:17→13:21)
[2019-04-27] MEDS: MIDAZOLAM PF (FBP) 2 MG/2 ML VIAL IVP ONE ×2 (13:18→13:20)
[2019-04-27] MEDS ORDERED: MIDAZOLAM PF (FBP) 2 MG/2 ML VIAL IVP ONE (13:21)
--- NOTE | 2019-04-27 15:58 | ECHOT ---
TRANSESOPHAGEAL ECHOCARDIOGRAM DATE OF SERVICE: 04/27/2019 PERFORMING PHYSICIAN: Jimbo Leonard MD, ore bridge operator. PROCEDURE PERFORMED: Transesophageal echocardiogram. INDICATION: This is a very pleasant 54-year-old gentleman with history of coronary artery disease and prior coronary revascularization in terms of bypass and stenting as well as ischemic cardiomyopathy. He was admitted to the hospital with acute [id number] myocardial infarction. He underwent an echocardiogram that revealed possible vegetation on the mitral valve and because of that, transesophageal echocardiogram was advised before the patient undergoes placement of a device with Dr. Alvarez. He is going to undergo an AICD. COMPLICATIONS: None. LEVEL OF SEDATION: Moderate, with sedation length of 15 minutes. PROCEDURE DESCRIPTION: After obtaining informed consent, explaining the procedure, benefits, risks, complications and alternatives, the patient was brought to the transesophageal echocardiogram suite. A pulse oximetry and heart rate monitors were attached to the patient prior to the procedure. The patient's throat was sprayed using lidocaine locally. Following that, the patient was turned into left lateral position. A bite guard was placed and the patient was then sedated with the above doses of Versed and fentanyl in divided doses. Following that, the transesophageal echocardiogram probe was advanced through the bite guard into the mid esophagus where 2-D echocardiogram images as well as color Doppler images of various cardiac structures were obtained. We evaluated the interatrial septum using 2-D echocardiogram, color Doppler, and contrast study. The procedure was completed. There were no complications. FINDINGS: The left ventricle is severely dilated. The left ventricular systolic function is severely impaired with EF around 20%. The right ventricle appeared to be mildly dilated. The left atrium appeared to be mildly dilated as well. The left atrial appendage appeared to be free from any thrombus. The interatrial septum appeared to be intact without any evidence of shunt. The aortic valve is a trileaflet valve without stenosis, with mild insufficiency and without any evidence of infective endocarditis. The mitral valve seems to be mildly thickened with evidence of mild to moderate MR. No evidence of endocarditis was seen on the mitral valve as well. Both tricuspid valve and pulmonic valve appeared to be intact without any evidence of vegetations. CONCLUSION: 1. There is no evidence of any infectious endocarditis seen. 2. Overall normal intracardiac valves. 3. Dilated left ventricle with severely impaired function and ejection fraction between 20% and 25% with regional wall motion abnormalities consistent with ischemic cardiomyopathy. 4. Normal left atrial appendage without any evidence of thrombus. 5. Intact interatrial septum without any evidence of shunt. 6. Normal aortic root dimension. 7. No evidence of pericardial effusion. MMODL / IJN: [id number] /
[2019-04-27 16:48] LABS: Glucose,Whole Blood 294 mg/dL (75-99)
[2019-04-27] MEDS: SODIUM CHLORIDE 0.9% 1,000 ML IV SCH (17:41)
[2019-04-27] MEDS: AMITRIPTYLINE HCL 50 MG TAB PO SCH (20:43)
[2019-04-27] MEDS: INSULIN DETEMIR (LEVEMIR) 100 UNIT/ML SYR SQ SCH (20:44)
[2019-04-27 20:45] LABS: Glucose,Whole Blood 117 mg/dL (75-99)
--- NOTE | 2019-04-27 21:31 | P.CONS ---
History of Present Illness - Reason for Consult Consult date: 04/27/19 - Chief Complaint Cardiopulmonary arrest - History of Present Illness 54-year-old -[place] male is well-known to the office for the treatment of his HIV infection. He has been intolerant of his antiretroviral therapy and has had adequate CD4 response with undetectable viral load for years. He over does have a history of the extensive cardiovascular disease and prior coronary artery bypass grafting procedure. The patient was not following up with cardiology and eventually was convinced on the importance and he has now been following with cardiology in the outpatient clinic. The patient apparently was cutting the grass when his partner noticed that he fell to the ground unconsci ous. The partner sprinted to the patient's side, it was obvious the patient was not breathing and consequently CPR was started. 911 had been called and the patient was transported to the emergency center. It appears in the field when the automated defibrillator was placed, a shockable rhythm was found and the patient did receive cardioversion. The patient did obtain a rhythm in the field but was intubated by EMS and brought to hospital. He was admitted to intensive care unit and seen by cardiology. He was taking the cardiac catheterization suite with concerns to a new acute cardiovascular event. Significant obstructive disease was found but no new lesions were seen. The patient has a known history of cardiomyopathy with an ejection fraction of about 25%. The patient fortunately improved and was extubated and once sedation was resolved the patient regained what appears to be a normal mentation. Showing an excellent response to the current treatments. As per protocol for intubated patient's sputum culture was obtained. The patient has chest x-rays that showed some heart failure but no significant pneumonia. He's had no fevers chills rigors sweats and does not have complaints of shortness of breath or of significant sputum production. He is actually feeling somewhat better and is wondering when he gets to go home. He understands the importance of AICD placement before his discharge to prevent another episode of sudden . Review of Systems HEENT:Denies headache or acute visual change. Denies sinus or mouth discomforts. Denies neck stiffness or pain. Denies significant oral cavity pain. Denies difficulty on swallowing. Lungs: Denies significant shortness of breath, cough, sputum production, or hemoptysis. Cardiovascular: He relates it is shortness of breath is about at baseline, status post CPR he is having some discomfort to his chest wall but it is not severe. orthopnea, dyspnea on exertion, syncope Gastrointestinal:Denies nausea, vomiting, diarrhea, constipation, hematemesis, melena, hematochezia. No no significant change of bowel habit noticed. Musculoskeletal: denies significant myalgias or arthralgias. No new joint swelling. Denies new back pain. Skin: Denies new rash or lesions. No new ulcers or wounds are related.. Neuro: Denies headache or visual change. Denies any new onset weakness or difficulty with ambulation. Denies falls or seizures. Psychiatric:Denies anxiety or depression. Endocrine: Denies significant fatigue, denies significant weight loss or weight gain. Past Medical History Past Medical History: Asthma, Chest Pain / Angina, Diabetes Mellitus, GERD/Reflux, Hyperlipidemia, Hypertension, Myocardial Infarction (PR), Osteoarthritis (OA) Additional Past Medical History / Comment(s): HIV, chronic low back pain Last Myocardial Infarction Date:: 2005 History of Any Multi-Drug Resistant Organisms: None Reported Past Surgical History: Coronary Bypass/CABG, Heart Catheterization Additional Past Surgical History / Comment(s): apoorva carpal tunnel, CABG 4 VESSEL- 2005 Past Anesthesia/Blood Transfusion Reactions: No Reported Reaction Date of Last Stent Placement:: 2017 Past Psychological History: Anxiety Additional Psychological History / Comment(s): Lives with his long-term partner Andrey. Medically disabled. Was a heavy tobacco smoker but is not smoking at this point in time but likely uses marijuana. No current injection drug use it is been many years since he has done recreational drug use other than marijuana. No experience. No Travel history. 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 No animals in the home Smoking Status: Former smoker Past Alcohol Use History: Unable to Obtain Past Drug Use History: Unable to Obtain - Past Family History Sister(s) Family Medical History: Coronary Artery Disease (CAD) Father Family Medical History: Cancer Additional Family Medical History / Comment(s): THROAT Mother Family Medical History: Cancer Medications and Allergies Home Medications and Allergies Comment(s): Current Medications Acetaminophen (Tylenol Tab) 650 mg PO Q6HR PRN PRN Reason: Mild Pain or Fever > 100.5 Last Admin: 04/27/19 03:43 Dose: 650 mg Documented by: Hydrocodone Bitart/Acetaminophen ([place] 10) 1 each PO Q6HR PRN PRN Reason: Pain Last Admin: 04/26/19 23:26 Dose: 1 each Documented by: Albuterol/Ipratropium (Duoneb 0.5 Mg-3 Mg/3 Ml Soln) 3 ml INHALATION RT-QID [facility] Last Admin: 04/27/19 20:54 Dose: 3 ml Documented by: Amiodarone HCl (Cordarone) 400 mg PO BID [facility] Last Admin: 04/27/19 20:43 Dose: 400 mg Documented by: Amitriptyline HCl (Elavil) 50 mg PO HS [facility] Last Admin: 04/27/19 20:43 Dose: 50 mg Documented by: Aspirin (Aspirin) 81 mg PO DAILY [facility] Last Admin: 04/27/19 10:26 Dose: 81 mg Documented by: Atorvastatin Calcium (Lipitor) 80 mg PO DAILY [facility] Last Admin: 04/27/19 10:25 Dose: 80 mg Documented by: Fluconazole (Diflucan) 100 mg PO DAILY [facility] Last Admin: 04/27/19 10:26 Dose: 100 mg Documented by: Sodium Chloride (Saline 0.9%) 1,000 mls @ 50 mls/hr IV .Q20H [facility] Last Admin: 04/27/19 17:41 Dose: Not Given Documented by: Insulin Aspart (Novolog) 0 unit SQ ACHS [facility]; Protocol Last Admin: 04/27/19 20:45 Dose: Not Given Documented by: Insulin Aspart (Novolog) 5 unit SQ AC-TID [facility] Last Admin: 04/27/19 17:10 Dose: 5 unit Documented by: Insulin Detemir (Levemir) 25 unit SQ [facility] Last Admin: 04/27/19 20:44 Dose: 25 unit Documented by: Losartan Potassium (Cozaar) 100 mg PO DAILY [facility] Last Admin: 04/27/19 10:26 Dose: 100 mg Documented by: Metoprolol Tartrate (Lopressor) 5 mg IVP Q4HR PRN PRN Reason: Heart Rate over 100BPM Metoprolol Tartrate (Lopressor) 50 mg PO BID [facility] Last Admin: 04/27/19 20:43 Dose: 50 mg Documented by: Naloxone HCl (Narcan) 0.2 mg IV Q2M PRN PRN Reason: Opioid Reversal Bictegrav/Emtricit/Tenofov Ala [ Biktarvy 50-200-25 Mg Tablet] 1 tab PO DAILY [facility] Last Admin: 04/27/19 10:59 Dose: Not Given Documented by: Pantoprazole Sodium (Protonix) 40 mg PO AC-BRKFST [facility] Last Admin: 04/27/19 06:31 Dose: 40 mg Documented by: Ticagrelor (Brilinta) 90 mg PO BID [facility] Last Admin: 04/27/19 20:43 Dose: 90 mg Documented by: Home Medications Medication Instructions Recorded Confirmed Type Olmesartan Medoxomil [Benicar] 40 mg PO DAILY 04/23/14 04/23/19 History Esomeprazole Magnesium [NexIUM] 40 mg PO DAILY 05/29/14 04/23/19 History ALPRAZolam [Xanax] 2 mg PO BID PRN 10/03/16 04/23/19 History Atorvastatin [Lipitor] 80 mg PO HS 10/03/16 04/23/19 History Albuterol Inhaler [Ventolin Hfa 1 - 2 puff INHALATION RT-Q6H PRN 03/19/18 04/23/19 History Inhaler] Aspirin 325 mg PO DAILY 03/19/18 04/23/19 History Bictegrav/Emtricit/Tenofov Ala 1 tab PO DAILY 03/19/18 04/23/19 History [Biktarvy 50-200-25 mg Tablet] Nitroglycerin Sl Tabs [Nitrostat] 0.4 mg SUBLINGUAL Q5M PRN 03/19/18 04/23/19 History Insulin Glargine,Hum.rec.anlog 30 units SQ DAILY 09/14/18 04/23/19 History [Basaglar Kwikpen U-100] Amitriptyline HCl [Elavil] 50 mg PO HS 04/23/19 04/23/19 History Fluconazole [Diflucan] 100 mg PO DAILY 04/23/19 04/23/19 History HYDROcodone/APAP 10-325MG [[place] 1 tab PO Q6HR PRN 04/23/19 04/23/19 History 10-325] Metoprolol Tartrate [Lopressor] 25 mg PO BID 04/23/19 04/23/19 History Multivitamins, Thera [Multivitamin 1 tab PO DAILY 04/23/19 04/23/19 History (formulary)] Ticagrelor [Brilinta] 90 mg PO BID #30 tab 04/25/19 Rx Allergies Allergy/AdvReac Type Severity Reaction Status Date / Time No Known Allergies Allergy Verified 04/23/19 17:09 Physical Exam Vitals: Vital Signs Temp Pulse Pulse Pulse Resp BP Pulse Ox 04/27/19 21:06 82 04/27/19 20:55 80 04/27/19 16:41 80 04/27/19 16:31 78 04/27/19 16:00 97.9 F 86 16 137/82 100 04/27/19 12:00 98.2 F 76 16 138/81 100 04/27/19 08:40 80 04/27/19 08:31 78 04/27/19 08:00 98.1 F 86 14 127/71 98 04/27/19 04:00 97.7 F 98 16 138/84 99 04/27/19 00:00 99.6 F 75 18 146/76 99 Intake and Output 04/27/19 04/27/19 04/27/19 06:59 14:59 22:59 Intake Total 690 240 Balance 690 240 Intake: IV 450 Sodium Chloride 0.9% 1, 350 000 ml @ 50 mls/hr IV . Q20H [facility] Rx#:[id number] Oral 240 240 Other: Voiding Method Urinal Urinal Urinal # Voids 1 Weight 70.2 kg Pleasant 54-year-old male who is sitting upright, recognizes me by name immediately upon entering the room. HEENT: Anicteric conjunctiva are pink and moist nasal mucosa grossly intact without significant lesions, there is no thrush. Neck: The neck is supple without significant lymphadenopathy or thyromegaly. Lungs: Are symmetrical bilaterally entry. Expiratory wheezes are noted few scattered crackles in the bases but no bronchial sounds all dullness or egophony Heart: Irregular with a positive S4 There is no significant murmur click or rub, PMI was nondisplaced. Abdomen: Positive bowel sounds soft and nontender without palpable masses or organomegaly. There was no guarding or rebound. Extremities: The upper extremities have excellent pulses they are symmetric, no significant petechiae or telangiectasia. No splinter hemorrhages were noted. The lower extremities are free from significant edema. The peripheral pulses were 2+ and symmetric. Neuro: Awake alert oriented to person place and time. There are no acute new gross focal sensory motor deficits. The chest wall does have some point tenderness over the costovertebral joints anteriorly especially to the left side, however there is no skin bruising noted to the chest wall. Results CBC & Chem 7: 04/26/19 04:30 04/26/19 04:30 Labs: Abnormal Lab Results - Last 24 Hours (Table) 04/27/19 04/27/19 04/27/19 Range/Units 06:14 11:40 16:44 POC Glucose (mg/dL) 118 H 181 H 294 H (75-99) mg/dL 04/27/19 Range/Units 20:44 POC Glucose (mg/dL) 117 H (75-99) mg/dL Laboratory Results WBC 5.7 k/uL (3.8-10.6) 04/26/19 04:30 RBC 3.35 m/uL (4.30-5.90) L 04/26/19 04:30 Hgb 10.8 gm/dL (13.0-17.5) L 04/26/19 04:30 Hct 33.1 % (39.0-53.0) L 04/26/19 04:30 MCV 98.9 fL (80.0-100.0) 04/26/19 04:30 MCH 32.2 pg (25.0-35.0) 04/26/19 04:30 MCHC 32.6 g/dL (31.0-37.0) 04/26/19 04:30 RDW 13.1 % (11.5-15.5) 04/26/19 04:30 Plt Count 126 k/uL (150-450) L 04/26/19 04:30 Neutrophils % 63 % 04/25/19 05:07 Neutrophils % (Manual) 30 % 04/23/19 13:45 Lymphocytes % 23 % 04/25/19 05:07 Lymphocytes % (Manual) 59 % 04/23/19 13:45 Monocytes % 9 % 04/25/19 05:07 Monocytes % (Manual) 8 % 04/23/19 13:45 Eosinophils % 1 % 04/25/19 05:07 Eosinophils % (Manual) 3 % 04/23/19 13:45 Basophils % 0 % 04/25/19 05:07 Neutrophils # 3.7 k/uL (1.3-7.7) 04/25/19 05:07 Neutrophils # (Manual) 2.40 k/uL (1.3-7.7) 04/23/19 13:45 Lymphocytes # 1.3 k/uL (1.0-4.8) 04/25/19 05:07 Lymphocytes # (Manual) 4.72 k/uL (1.0-4.8) 04/23/19 13:45 Monocytes # 0.5 k/uL (0-1.0) 04/25/19 05:07 Monocytes # (Manual) 0.64 k/uL (0-1.0) 04/23/19 13:45 Eosinophils # 0.1 k/uL (0-0.7) 04/25/19 05:07 Eosinophils # (Manual) 0.24 k/uL (0-0.7) 04/23/19 13:45 Basophils # 0.0 k/uL (0-0.2) 04/25/19 05:07 Nucleated RBCs 0 /100 WBC (0-0) 04/23/19 13:45 Manual Slide Review Performed 04/23/19 13:45 Poikilocytosis (manual Present 04/23/19 13:45 PT 11.3 sec (9.0-12.0) 04/23/19 13:45 INR 1.1 (<1.2) 04/23/19 13:45 APTT 20.8 sec (22.0-30.0) L 04/23/19 13:45 Sample Site [facility] 04/24/19 08:10 ABG pH 7.32 (7.35-7.45) L 04/24/19 08:10 ABG pCO2 36 mmHg (35-45) 04/24/19 08:10 ABG pO2 179 mmHg (83-108) H 04/24/19 08:10 ABG HCO3 19 mmol/L (21-25) L 04/24/19 08:10 ABG Total CO2 20 mmol/L (19-24) 04/24/19 08:10 ABG O2 Saturation 99.0 % (94-97) H 04/24/19 08:10 ABG Base Excess -7.4 mmol/L 04/24/19 08:10 Jono Test Yes 04/24/19 08:10 FiO2 40 % 04/24/19 08:10 Sodium 139 mmol/L (137-145) 04/26/19 04:30 Potassium 3.8 mmol/L (3.5-5.1) 04/26/19 04:30 Chloride 107 mmol/L (98-107) 04/26/19 04:30 Carbon Dioxide 24 mmol/L (22-30) 04/26/19 04:30 Anion Gap 8 mmol/L 04/26/19 04:30 BUN 11 mg/dL (9-20) 04/26/19 04:30 Creatinine 0.90 mg/dL (0.66-1.25) 04/26/19 04:30 Est GFR (CKD-EPI)AfAm >90 (>60 ml/min/1.73 sqM) 04/26/19 04:30 Est GFR (CKD-EPI)NonAf >90 (>60 ml/min/1.73 sqM) 04/26/19 04:30 Glucose 137 mg/dL (74-99) H 04/26/19 04:30 POC Glucose (mg/dL) 117 mg/dL (75-99) H 04/27/19 20:44 POC Glu Implementation Technician REGINO Danielle Price 04/27/19 20:44 Calcium 9.5 mg/dL (8.4-10.2) 04/26/19 04:30 Magnesium 1.9 mg/dL (1.6-2.3) 04/24/19 05:00 Total Bilirubin 0.6 mg/dL (0.2-1.3) 04/23/19 13:45 AST 118 U/L (17-59) H 04/23/19 13:45 ALT 104 U/L (21-72) H 04/23/19 13:45 Alkaline Phosphatase 87 U/L (38-126) 04/23/19 13:45 Troponin I <0.012 ng/mL (0.000-0.034) 04/23/19 13:45 Total Protein 7.3 g/dL (6.3-8.2) 04/23/19 13:45 Albumin 4.4 g/dL (3.5-5.0) 04/23/19 13:45 Vitamin B12 1495.0 pg/mL (200.0-944.0) H 04/25/19 05:07 Folate 20.3 ng/mL 04/25/19 05:07 TSH 0.020 mIU/L (0.465-4.680) L 04/25/19 09:37 Free T4 0.87 ng/dL (0.78-2.19) 04/26/19 04:30 Free T3 pg/mL 3.9 pg/ml (2.8-5.3) 04/26/19 04:30 Urine Opiates Screen Detected (NotDetected) H 04/23/19 14:01 Ur Oxycodone Screen Not Detected (NotDetected) 04/23/19 14:01 Urine Methadone Screen Not Detected (NotDetected) 04/23/19 14:01 Ur Propoxyphene Screen Not Detected (NotDetected) 04/23/19 14:01 Ur Barbiturates Screen Not Detected (NotDetected) 04/23/19 14:01 U Tricyclic Antidepress Detected (NotDetected) H 04/23/19 14:01 Ur Phencyclidine Scrn Not Detected (NotDetected) 04/23/19 14:01 Ur Amphetamines Screen Not Detected (NotDetected) 04/23/19 14:01 U Methamphetamines Scrn Not Detected (NotDetected) 04/23/19 14:01 U Benzodiazepines Scrn Not Detected (NotDetected) 04/23/19 14:01 Urine Cocaine Screen Not Detected (NotDetected) 04/23/19 14:01 U Marijuana (THC) Screen Detected (NotDetected) H 04/23/19 14:01 Microbiology 04/24/19 08:40 Sputum Gram Stain - Final 04/24/19 08:40 Sputum Sputum Culture - Final Methicillin resist S. aureus Assessment and Plan (1) Human immunodeficiency virus [HIV] disease Current Visit: Yes Status: Acute Code(s): B20 - HUMAN IMMUNODEFICIENCY VIRUS [HIV] DISEASE SNOMED Code(s): 55200190 (2) Ischemic cardiomyopathy Narrative/Plan: 54-year-old male with long-standing history of HIV infection is been well controlled in the outpatient setting for several years. He is currently on Biktarvy and this is been well-tolerated with adequate CD4 is in excellent control viral load for the last several years. He does have the known history of severe coronary artery disease and ischemic cardiomyopathy. He suffered a bout of cardiopulmonary arrest and has as noted had the successful resuscitation and appears to have had quite a good response at this point in time. However given his ejection fraction of 20-25% he is in need of an AICD. The patient was intubated the routine sputum culture was obtained and there appears to be some colonizer with MRSA in his sputum. The patient does not have pneumonia by chest x-ray, he does not have evidence of pneumonia by symptoms.i The patient is in need of an urgent AICD be placed, and this time I have no specific reason to delay its implantation. Current Visit: No Status: Chronic Code(s): I25.5 - ISCHEMIC CARDIOMYOPATHY SNOMED Code(s): 138159958 (3) Cardiopulmonary arrest with successful resuscitation Current Visit: Yes Status: Acute Code(s): I46.9 - CARDIAC ARREST, CAUSE UNSPECIFIED SNOMED Code(s): 376763154
[2019-04-27] MEDS: HYDROcodone/APAP 10-325MG 1 EACH TAB PO PRN (23:07)
[2019-04-28] MEDS: AMIODARONE 200 MG TAB PO SCH ×2 (06:07→19:34)
[2019-04-28] MEDS: PANTOPRAZOLE 40 MG TABLET PO SCH (06:07)
[2019-04-28] MEDS: ASPIRIN 81 MG PO SCH (06:07)
[2019-04-28 06:08] LABS: Glucose,Whole Blood 143 mg/dL (75-99)
[2019-04-28] MEDS: LOSARTAN 50 MG TAB PO SCH (06:08)
[2019-04-28] MEDS: TICAGRELOR 90 MG TAB PO SCH ×2 (06:08→19:34)
[2019-04-28] MEDS: METOPROLOL TARTRATE 50 MG TAB PO SCH ×2 (06:08→19:34)
[2019-04-28] MEDS: ATORVASTATIN 80 MG TAB PO SCH (06:08)
[2019-04-28] MEDS: FLUCONAZOLE 100 MG TAB PO SCH (06:08)
[2019-04-28] MEDS: SODIUM CHLORIDE 0.9% 1,000 ML IV SCH (06:13)
[2019-04-28] MEDS: INSULIN ASPART (NovoLOG) 100 UNIT/ML VIAL SQ SCH ×7 (06:14→21:07)
[2019-04-28] MEDS: ACETAMINOPHEN TAB 325 MG TAB PO PRN (06:44)
[2019-04-28 07:32] LABS: HCT 33.7 % (39.0-53.0); MCHC 32.6 g/dL (31.0-37.0); MCV 98.2 fL (80.0-100.0); Mean Platelet Volume 6.8; Platelet Count 151 k/uL (150-450); RBC 3.43 m/uL (4.30-5.90); WBC 5.8 k/uL (3.8-10.6)
[2019-04-28 08:34] LABS: African American GFR (CKD) >90 (>60 ml/min/1.73 sqM); Anion Gap 8 mmol/L; Blood Urea Nitrogen 13 mg/dL (9-20); Calcium 9.6 mg/dL (8.4-10.2); Carbon Dioxide 26 mmol/L (22-30); Chloride 106 mmol/L (98-107); Glucose 95 mg/dL (74-99); Potassium 3.9 mmol/L (3.5-5.1); Sodium 140 mmol/L (137-145)
[2019-04-28] MEDS: IPRATROPIUM-ALBUTEROL 3 ML NEB INHALATION SCH ×4 (09:13→19:47)
[2019-04-28] MEDS: Bictegrav/Emtricit/Tenofov Ala [Biktarvy 50-200-25 Mg Tablet] PO SCH (09:21)
--- NOTE | 2019-04-28 11:06 | P.PN ---
Subjective Progress Note Date: 04/28/19 Principal diagnosis: Cardiac arrest The patient is seen today 04/28/2019 in follow-up on the regular selective care unit. He is currently up ambulating in his room. He denies any chest pain, palpitations, lightheadedness or dizziness. No shortness of breath, cough or congestion. Maintaining O2 saturations up to 100% on room air. He is afebrile. Hemodynamically stable. His sputum was positive for MRSA. Chest x-ray showed improvement in the right basilar subsegmental changes/atelectasis. He did undergo a transesophageal echocardiogram yesterday that revealed no evidence of infectious endocarditis. Normal intracardiac valves. Ejection fraction 20-25% with regional wall motion abnormalities consistent with ischemic cardiomyopathy. The plan is for AICD placement on 05/02/2019. Objective - Vital Signs Vital signs: Vital Signs Temp 97.9 F 04/28/19 03:44 Pulse 67 04/28/19 09:23 Resp 16 04/28/19 08:00 BP 143/80 04/28/19 08:00 Pulse Ox 100 04/28/19 09:17 Intake & Output 04/27/19 04/28/19 04/28/19 18:59 06:59 18:59 Intake Total 930 Balance 930 Weight 64.4 kg Intake: IV 450 Sodium Chloride 0.9% 1, 350 000 ml @ 50 mls/hr IV . Q20H [facility] Rx#:[id number] Oral 480 Other: Voiding Method Urinal Urinal # Voids 1 ABP, PAP, CO, CI - Last Documented Arterial Blood Pressure 158/75 - Exam GENERAL EXAM: Alert, active, pleasant 54-year-old gentleman, on room air, comfortable in no apparent distress. HEAD: Normocephalic. EYES: Normal reaction of pupils, equal size. NOSE: Clear with pink turbinates. THROAT: No erythema or exudates. NECK: No masses, no JVD. CHEST: No chest wall deformity. LUNGS: Equal air entry with crackles in the right lung base. CVS: S1 and S2 normal with no audible murmur, regular rhythm. ABDOMEN: No hepatosplenomegaly, normal bowel sounds, no guarding or rigidity. SPINE: No scoliosis or deformity SKIN: No rashes CENTRAL NERVOUS SYSTEM: No focal deficits, tone is normal in all 4 extremities. EXTREMITIES: There is no peripheral edema. No clubbing, no cyanosis. Peripheral pulses are intact. - Labs CBC & Chem 7: 04/28/19 07:19 04/28/19 07:19 Labs: Abnormal Lab Results - Last 24 Hours (Table) 04/27/19 04/27/19 04/27/19 Range/Units 11:40 16:44 20:44 RBC (4.30-5.90) m/uL Hgb (13.0-17.5) gm/dL Hct (39.0-53.0) % POC Glucose (mg/dL) 181 H 294 H 117 H (75-99) mg/dL 04/28/19 04/28/19 Range/Units 06:07 07:19 RBC 3.43 L (4.30-5.90) m/uL Hgb 11.0 L (13.0-17.5) gm/dL Hct 33.7 L (39.0-53.0) % POC Glucose (mg/dL) 143 H (75-99) mg/dL Assessment and Plan Assessment: Impression: 1 acute cardiac arrest secondary to acute ST elevation myocardial infarction 2 severe ischemic cardiomyopathy with ejection fraction 20-25%. CARMINA shows no vegetation on valves. Plan is for AICD placement. 3 acute hypoxic respiratory failure requiring intubation mechanical ventilatory support secondary to above. Recovered. On room air. 4history of CABG in 2005 insulin at [facility] 5 history of hypertension 6 HIV positive diagnosis since 2013 7 [id number] diabetes 8 previous history of tobacco dependence syndrome.presently in remission. 9 family history of early coronary artery disease 10 hyperlipidemia Plan: The patient was seen and evaluated by Dr. Horton. Chest x-ray and labs reviewed. Sputum is positive for MRSA felt to be a colonizer per infectious disease. We'll continue with the current treatment plan. CARMINA revealed no vegetation/en docarditis. AICD placement pending. I, the cosigning physician, performed a history & physical examination of the patient. Lungs sounds with crackles in the right posterior base. Maintaining good O2 saturations in the 90s on room air. I discussed the assessment and plan of care with my nurse practitioner, Rafia Rhodes. I attest to the above note as dictated by her.
--- NOTE | 2019-04-28 11:16 | P.PN ---
Subjective Progress Note Date: 04/28/19 The patient is a 54-year-old male with a past medical history of coronary artery disease status post CABG and multiple stents, systolic CHF (EF 25%), HIV, hypertension, diabetes mellitus, hyperlipidemia suffered a cardiopulmonary arrest while at home, in the setting of STEMI. The patient was resuscitated by EMS wit [facility] after single shock. The patient was taken to the cath-lab where no interventions were made. The patient was extubated successfully on 04/24. The patient's sputum culture grew MRSA. The patient was placed on droplet precautions. ID was consulted. The patient underwent a CARMINA on 04/27 which revealed no evidence of any infectious endocarditis with normal intracardiac valves, with ejection fraction 20-25%. Patient is currently awaiting AICD placement. The patient was seen and examined at the bedside on 04/28. He notes no further chest discomfort. He denied shortness of breath, nausea, vomiting, diaphoresis, or dizziness. Objective - Vital Signs Vital signs: Vital Signs Temp 97.9 F 04/28/19 03:44 Pulse 67 04/28/19 09:23 Resp 16 04/28/19 08:00 BP 143/80 04/28/19 08:00 Pulse Ox 100 04/28/19 09:17 Intake & Output 04/27/19 04/28/19 04/28/19 18:59 06:59 18:59 Intake Total 930 Balance 930 Weight 64.4 kg Intake: IV 450 Sodium Chloride 0.9% 1, 350 000 ml @ 50 mls/hr IV . Q20H [facility] Rx#:[id number] Oral 480 Other: Voiding Method Urinal Urinal # Voids 1 ABP, PAP, CO, CI - Last Documented Arterial Blood Pressure 158/75 - Exam General: Non-toxic, in no acute distress, appears stated age, normal weight HEENT: NC/AT, anicteric sclerae, moist conjunctiva, no lid-lag, PERRLA Cardiovascular: S1/S2 wnl, no murmurs, rubs, or gallops Lungs: Clear to auscultation, normal respiratory effort, no accessory muscle use Abdominal: Soft, non-tender, non-distended, no guarding, rebound, or rigidity Skin: Warm, dry Extremities: No edema or contractures Psychiatric: Alert and oriented to person, place and time, appropriate affect Neuro: CN II-XII grossly intact, no focal neuro deficits - Labs CBC & Chem 7: 04/28/19 07:19 04/28/19 07:19 Labs: Abnormal Lab Results - Last 24 Hours (Table) 04/27/19 04/27/19 04/27/19 Range/Units 11:40 16:44 20:44 RBC (4.30-5.90) m/uL Hgb (13.0-17.5) gm/dL Hct (39.0-53.0) % POC Glucose (mg/dL) 181 H 294 H 117 H (75-99) mg/dL 04/28/19 04/28/19 Range/Units 06:07 07:19 RBC 3.43 L (4.30-5.90) m/uL Hgb 11.0 L (13.0-17.5) gm/dL Hct 33.7 L (39.0-53.0) % POC Glucose (mg/dL) 143 H (75-99) mg/dL Assessment and Plan Plan: S/p Cardiopulmonary arrest in setting of STEMI -Cardiology recs appreciated -C/w Aspirin, Brilinta, and Lipitor -Cardiac monitoring -C/w Lopressor and Amiodarone -CARMINA reviewed -- no endocarditis seen -Plan for AICD by Dr Alvarez Chronic systolic CHF -C/w Losartan, Lopressor -CARMINA showing EF 20-25% MRSA colonization -F/u ID recs -Placed on contact precautions -Will likely need decolonization in setting of HIV infection and high risk c ardiac disease Low TSH -Free T4 and Free T3 wnl -Possibly due to critical care illness and cardiac arrest Thrombocytopenia, resolved -Possibly due to critical illness -Monitor for now Normocytic anemia -B12 and Folate wnl -Monitor CBC Type 2 DM -C/w MANUELA with FS -C/w Levemir 25 U qhs. Start Lispro 5 U TID-AC HTN -C/w the above HIV -C/w home meds DVT prophylaxis -IPCDs Discussed with: Patient Anticipated discharge date: 05/[address]: Home A total of 35 minutes was spent on the care of this complex patient more than 50% of the time was spent in counseling and care coordination.
--- NOTE | 2019-04-28 11:35 | PN ---
PROGRESS NOTE Mr. Munson is a gentleman with ischemic cardiomyopathy, came in with a cardiac arrest, resuscitated. His cath revealed no progression of disease. He also has underlying HIV and also has colonization with Staph aureus. However, he will need an ICD. Prior to the ICD, there was a question of a vegetation on the mitral valve leaflet and this was clarified by transesophageal echo yesterday which does not show any vegetation. His blood cultures have been drawn. We will make sure the cultures are negative, and if so we will proceed with single-chamber ICD. This was explained to the patient in detail. He is doing well. No arrhythmia. He is on oral amiodarone, maintaining sinus rhythm, no significant arrhythmia. Vitals are stable, no JVD. S1, S2 heard normally, short systolic murmur. Lungs are clear. Abdomen and lower extremity exam are unchanged. Plan is to continue current medical regimen. Check the blood cultures and Dr. Alvarez will perform ICD either Thursday or more likely Thursday. MMODL / IJN: [id number] /
[2019-04-28 11:54] LABS: Glucose,Whole Blood 145 mg/dL (75-99)
[2019-04-28 16:33] LABS: Glucose,Whole Blood 101 mg/dL (75-99)
[2019-04-28] MEDS: AMITRIPTYLINE HCL 50 MG TAB PO SCH (19:34)
[2019-04-28 20:47] LABS: Glucose,Whole Blood 158 mg/dL (75-99)
[2019-04-28] MEDS: HYDROcodone/APAP 10-325MG 1 EACH TAB PO PRN (21:07)
[2019-04-28] MEDS: INSULIN DETEMIR (LEVEMIR) 100 UNIT/ML SYR SQ SCH (21:07)
--- NOTE | 2019-04-28 22:42 | P.PN ---
Subjective Progress Note Date: 04/28/19 54-year-old -[place] male is well-known to the office for the treatment of his HIV infection. He has been intolerant of his antiretroviral therapy and has had adequate CD4 response with undetectable viral load for years. He over does have a history of the extensive cardiovascular disease and prior coronary artery bypass grafting procedure. The patient was not following up with cardiology and eventually was convinced on the importance and he has now been following with cardiology in the outpatient clinic. The patient apparently was cutting the grass when his partner noticed that he fell to the ground unconscious. The partner sprinted to the patient's side, it was obvious the patient was not breathing and consequently CPR was started. 911 had been called and the patient was transported to the emergency center. It appears in the field when the automated defibrillator was placed, a shockable rhythm was found and the patient did receive cardioversion. The patient did obtain a rhythm in the field but was intubated by EMS and brought to hospital. He was admitted to intensive care unit and seen by cardiology. He was taking the cardiac catheterization suite with concerns to a new acute cardiovascular event. Significant obstructive disease was found but no new lesions were seen. The patient has a known history of cardiomyopathy with an ejection fraction of about 25%. The patient fortunately improved and was extubated and once sedation was resolved the patient regained what appears to be a normal mentation. Showing an excellent response to the current treatments. As per protocol for intubated patient's sputum culture was obtained. The patient has chest x-rays that showed some heart failure but no significant pneumonia. He's had no fevers chills rigors sweats and does not have complaints of shortness of breath or of significant sputum production. He is actually feeling somewhat better and is wondering when he gets to go home. He understands the importance of AICD placement before his discharge to prevent another episode of sudden . 04/28/2019 patient is feeling better today. Awaits details about the placement of his AICD, which she understands is imperative given his recent cardiopulmonary arrest. He is feeling quite well today. He is eating well. Has no other new acute complaints. He is denying any neurological concerns. Objective - Vital Signs Vital signs: Vital Signs Temp 98.3 F 04/28/19 20:00 Pulse 86 04/28/19 20:00 Resp 18 04/28/19 20:00 BP 135/79 04/28/19 20:00 Pulse Ox 99 04/28/19 20:00 Intake & Output 04/28/19 04/28/19 04/29/19 06:59 18:59 06:59 Intake Total 180 400 Output Total 600 Balance -420 400 Weight 64.4 kg Intake: IV 400 Sodium Chloride 0.9% 1, 400 000 ml @ 50 mls/hr IV . Q20H [facility] Rx#:[id number] Oral 180 Output: Urine 600 Other: Voiding Method Urinal Urinal Urinal # Voids 1 1 ABP, PAP, CO, CI - Last Documented Arterial Blood Pressure 158/75 - Exam Pleasant 54-year-old male who is sitting upright, recognizes me by name immediately upon entering the room. HEENT: Anicteric conjunctiva are pink and moist nasal mucosa grossly intact without significant lesions, there is no thrush. Neck: The neck is supple without significant lymphadenopathy or thyromegaly. Lungs: Are symmetrical bilaterally entry. Expiratory wheezes are noted few scattered crackles in the bases but no bronchial sounds all dullness or egophony Heart: Irregular with a positive S4 There is no significant murmur click or rub, PMI was nondisplaced. Abdomen: Positive bowel sounds soft and nontender without palpable masses or organomegaly. There was no guarding or rebound. Extremities: The upper extremities have excellent pulses they are symmetric, no significant petechiae or telangiectasia. No splinter hemorrhages were noted. The lower extremities are free from significant edema. The peripheral pulses were 2+ and symmetric. Neuro: Awake alert oriented to person place and time. There are no acute new gross focal sensory motor deficits. The chest wall does have some point tenderness over the costovertebral joints anteriorly especially to the left side, however there is no skin bruising noted to the chest wall. - Labs CBC & Chem 7: 04/28/19 07:19 04/28/19 07:19 Labs: Abnormal Lab Results - Last 24 Hours (Table) 04/28/19 04/28/19 04/28/19 Range/Units 06:07 07:19 11:53 RBC 3.43 L (4.30-5.90) m/uL Hgb 11.0 L (13.0-17.5) gm/dL Hct 33.7 L (39.0-53.0) % POC Glucose (mg/dL) 143 H 145 H (75-99) mg/dL 04/28/19 04/28/19 Range/Units 16:32 20:46 RBC (4.30-5.90) m/uL Hgb (13.0-17.5) gm/dL Hct (39.0-53.0) % POC Glucose (mg/dL) 101 H 158 H (75-99) mg/dL Microbiology - Last 24 Hours (Table) 04/27/19 11:13 Blood Culture - Preliminary Blood No Growth after 24 hours Laboratory Results WBC 5.8 k/uL (3.8-10.6) 04/28/19 07:19 RBC 3.43 m/uL (4.30-5.90) L 04/28/19 07: Hgb 11.0 gm/dL (13.0-17.5) L 04/28/19 07:19 Hct 33.7 % (39.0-53.0) L 04/28/19 07: MCV 98.2 fL (80.0-100.0) 04/28/19 07: MCH 32.0 pg (25.0-35.0) 04/28/19 07: MCHC 32.6 g/dL (31.0-37.0) 04/28/19 07: RDW 13.0 % (11.5-15.5) 04/28/19 07:19 Plt Count 151 k/uL (150-450) 04/28/19 07:19 Neutrophils % 63 % 04/25/19 05:07 Neutrophils % (Manual) 30 % 04/23/19 13:45 Lymphocytes % 23 % 04/25/19 05:07 Lymphocytes % (Manual) 59 % 04/23/19 13:45 Monocytes % 9 % 04/25/19 05:07 Monocytes % (Manual) 8 % 04/23/19 13:45 Eosinophils % 1 % 04/25/19 05:07 Eosinophils % (Manual) 3 % 04/23/19 13:45 Basophils % 0 % 04/25/19 05:07 Neutrophils # 3.7 k/uL (1.3-7.7) 04/25/19 05:07 Neutrophils # (Manual) 2.40 k/uL (1.3-7.7) 04/23/19 13:45 Lymphocytes # 1.3 k/uL (1.0-4.8) 04/25/19 05:07 Lymphocytes # (Manual) 4.72 k/uL (1.0-4.8) 04/23/19 13:45 Monocytes # 0.5 k/uL (0-1.0) 04/25/19 05:07 Monocytes # (Manual) 0.64 k/uL (0-1.0) 04/23/19 13:45 Eosinophils # 0.1 k/uL (0-0.7) 04/25/19 05:07 Eosinophils # (Manual) 0.24 k/uL (0-0.7) 04/23/19 13:45 Basophils # 0.0 k/uL (0-0.2) 04/25/19 05:07 Nucleated RBCs 0 /100 WBC (0-0) 04/23/19 13:45 Manual Slide Review Performed 04/23/19 13:45 Poikilocytosis (manual Present 04/23/19 13:45 PT 11.3 sec (9.0-12.0) 04/23/19 13:45 INR 1.1 (<1.2) 04/23/19 13:45 APTT 20.8 sec (22.0-30.0) L 04/23/19 13:45 Sample Site maulik 04/24/19 08:10 ABG pH 7.32 (7.35-7.45) L 04/24/19 08:10 ABG pCO2 36 mmHg (35-45) 04/24/19 08:10 ABG pO2 179 mmHg (83-108) H 04/24/19 08:10 ABG HCO3 19 mmol/L (21-25) L 04/24/19 08:10 ABG Total CO2 20 mmol/L (19-24) 04/24/19 08:10 ABG O2 Saturation 99.0 % (94-97) H 04/24/19 08:10 ABG Base Excess -7.4 mmol/L 04/24/19 08:10 Jono Test Yes 04/24/19 08:10 FiO2 40 % 04/24/19 08:10 Sodium 140 mmol/L (137-145) 04/28/19 07:19 Potassium 3.9 mmol/L (3.5-5.1) 04/28/19 07:19 Chloride 106 mmol/L (98-107) 04/28/19 07:19 Carbon Dioxide 26 mmol/L (22-30) 04/28/19 07:19 Anion Gap 8 mmol/L 04/28/19 07:19 BUN 13 mg/dL (9-20) 04/28/19 07:19 Creatinine 0.96 mg/dL (0.66-1.25) 04/28/19 07:19 Est GFR (CKD-EPI)AfAm >90 (>60 ml/min/1.73 sqM) 04/28/19 07:19 Est GFR (CKD-EPI)NonAf 89 (>60 ml/min/1.73 sqM) 04/28/19 07:19 Glucose 95 mg/dL (74-99) 04/28/19 07:19 POC Glucose (mg/dL) 158 mg/dL (75-99) H 04/28/19 20:46 POC Glu Adjunct Latin Professor ID Christine Anaya 04/28/19 20:46 Calcium 9.6 mg/dL (8.4-10.2) 04/28/19 07:19 Magnesium 1.9 mg/dL (1.6-2.3) 04/24/19 05:00 Total Bilirubin 0.6 mg/dL (0.2-1.3) 04/23/19 13:45 AST 118 U/L (17-59) H 04/23/19 13:45 ALT 104 U/L (21-72) H 04/23/19 13:45 Alkaline Phosphatase 87 U/L (38-126) 04/23/19 13:45 Troponin I <0.012 ng/mL (0.000-0.034) 04/23/19 13:45 Total Protein 7.3 g/dL (6.3-8.2) 04/23/19 13:45 Albumin 4.4 g/dL (3.5-5.0) 04/23/19 13:45 Vitamin B12 1495.0 pg/mL (200.0-944.0) H 04/25/19 05:07 Folate 20.3 ng/mL 04/25/19 05:07 TSH 0.020 mIU/L (0.465-4.680) L 04/25/19 09:37 Total T4 5.1 ug/dL (4.5 - 10.9) 04/26/19 04:30 Free T4 0.87 ng/dL (0.78-2.19) 04/26/19 04:30 Free T3 pg/mL 3.9 pg/ml (2.8-5.3) 04/26/19 04:30 Urine Opiates Screen Detected (NotDetected) H 04/23/19 14:01 Ur Oxycodone Screen Not Detected (NotDetected) 04/23/19 14:01 Urine Methadone Screen Not Detected (NotDetected) 04/23/19 14:01 Ur Propoxyphene Screen Not Detected (NotDetected) 04/23/19 14:01 Ur Barbiturates Screen Not Detected (NotDetected) 04/23/19 14:01 U Tricyclic Antidepress Detected (NotDetected) H 04/23/19 14:01 Ur Phencyclidine Scrn Not Detected (NotDetected) 04/23/19 14:01 Ur Amphetamines Screen Not Detected (NotDetected) 04/23/19 14:01 U Methamphetamines Scrn Not Detected (NotDetected) 04/23/19 14:01 U Benzodiazepines Scrn Not Detected (NotDetected) 04/23/19 14:01 Urine Cocaine Screen Not Detected (NotDetected) 04/23/19 14:01 U Marijuana (THC) Screen Detected (NotDetected) H 04/23/19 14:01 Microbiology 04/27/19 11:13 Blood Blood Culture - Preliminary No Growth after 24 hours 04/24/19 08:40 Sputum Gram Stain - Final 04/24/19 08:40 Sputum Sputum Culture - Final Methicillin resist S. aureus - Imaging and Cardiology Chest x-ray: image reviewed (No evidence of any acute infiltrate) Assessment and Plan (1) Human immunodeficiency virus [HIV] disease Current Visit: Yes Status: Acute Code(s): B20 - HUMAN IMMUNODEFICIENCY VIRUS [HIV] DISEASE SNOMED Code(s): 46716308 (2) Ischemic cardiomyopathy Narrative/Plan: 54-year-old male with long-standing history of HIV infection is been well controlled in the outpatient setting for several years. He is currently on Biktarvy and this is been well-tolerated with adequate CD4 is in excellent control viral load for the last several years. He does have the known history of severe coronary artery disease and ischemic cardiomyopathy. He suffered a bout of cardiopulmonary arrest and has as noted had the successful resuscitation and appears to have had quite a good response at this point in time. However given his ejection fraction of 20-25% he is in need of an AICD. The patient was intubated the routine sputum culture was obtained and there appears to be some colonizer with MRSA in his sputum. The patient does not have pneumonia by chest x-ray, he does not have evidence of pneumonia by symptoms.i The patient is in need of an urgent AICD be placed, and this time I have no specific reason to delay its implantation. 04/28/2019 the patient is showing further improvement. Await cardiology's plan about the placement of the AICD. His family has brought his Biktary from home he is taking that daily. There is no evidence of pneumonia or underlying infection at this point in time may proceed with AICD placement as per cardiology schedule Current Visit: No Status: Chronic Code(s): I25.5 - ISCHEMIC CARDIOMYOPATHY SNOMED Code(s): 727815288 (3) Cardiopulmonary arrest with successful resuscitation Current Visit: Yes Status: Acute Code(s): I46.9 - CARDIAC ARREST, CAUSE UNSPECIFIED SNOMED Code(s): 440763679
[2019-04-29 06:43] LABS: Glucose,Whole Blood 68 mg/dL (75-99)
[2019-04-29] MEDS: INSULIN ASPART (NovoLOG) 100 UNIT/ML VIAL SQ SCH ×7 (06:44→20:54)
[2019-04-29] MEDS: PANTOPRAZOLE 40 MG TABLET PO SCH (06:49)
[2019-04-29] MEDS: SODIUM CHLORIDE 0.9% 1,000 ML IV SCH (06:50)
[2019-04-29 07:07] LABS: Glucose,Whole Blood 75 mg/dL (75-99)
[2019-04-29] MEDS: ASPIRIN 81 MG PO SCH (08:32)
[2019-04-29] MEDS: AMIODARONE 200 MG TAB PO SCH ×2 (08:32→20:14)
[2019-04-29] MEDS: ATORVASTATIN 80 MG TAB PO SCH (08:32)
[2019-04-29] MEDS: FLUCONAZOLE 100 MG TAB PO SCH (08:32)
[2019-04-29] MEDS: LOSARTAN 50 MG TAB PO SCH (08:33)
[2019-04-29] MEDS: TICAGRELOR 90 MG TAB PO SCH ×2 (08:33→20:14)
[2019-04-29] MEDS: METOPROLOL TARTRATE 50 MG TAB PO SCH ×2 (08:33→20:14)
[2019-04-29] MEDS: IPRATROPIUM-ALBUTEROL 3 ML NEB INHALATION SCH ×4 (08:49→19:57)
[2019-04-29] MEDS: Bictegrav/Emtricit/Tenofov Ala [Biktarvy 50-200-25 Mg Tablet] PO SCH (09:15)
--- NOTE | 2019-04-29 10:34 | P.PN ---
Subjective Progress Note Date: 04/29/19 Principal diagnosis: The patient is a 54-year-old male with a past medical history of coronary artery disease status post CABG and multiple stents, systolic CHF (EF 25%), HIV, hype rtension, diabetes mellitus, hyperlipidemia suffered a cardiopulmonary arrest while at home, in the setting of STEMI. The patient was resuscitated by EMS wit ROSC after round of defibrillation. The patient was taken to the cath-lab where no interventions were made. The patient was extubated successfully on 04/24. The patient's sputum culture grew MRSA. The patient was placed on droplet precautions. ID was consulted. The patient underwent a CARMINA on 04/27 which revealed no evidence of any infectious endocarditis with normal intracardiac valves, with ejection fraction 20-25%. Patient is currently awaiting AICD placement to be done 05/02 Patient seen and examined follow up sitting up at bedside receiving a breathing treatment , stating breathing is much improved denies any chest pain or shor tness of breath. Patient has been up and ambulatory. No acute events overnight Objective - Vital Signs Vital signs: Vital Signs Temp 98.2 F 04/29/19 04:00 Pulse 80 04/29/19 04:00 Resp 18 04/29/19 04:00 BP 128/73 04/29/19 04:00 Pulse Ox 98 04/29/19 04:00 Intake & Output 04/28/19 04/29/19 04/29/19 18:59 06:59 18:59 Intake Total 180 1100 Output Total 600 Balance -420 1100 Weight 65.4 kg Intake: IV 800 Sodium Chloride 0.9% 1, 800 000 ml @ 50 mls/hr IV . Q20H [facility] Rx#:[id number] Oral 180 300 Output: Urine 600 Other: Voiding Method Urinal Urinal # Voids 1 1 ABP, PAP, CO, CI - Last Documented Arterial Blood Pressure 158/75 - Labs CBC & Chem 7: 04/28/19 07:19 04/28/19 07:19 Labs: Abnormal Lab Results - Last 24 Hours (Table) 04/28/19 04/28/19 04/28/19 Range/Units 07: 11:53 16:32 RBC 3.43 L (4.30-5.90) m/uL Hgb 11.0 L (13.0-17.5) gm/dL Hct 33.7 L (39.0-53.0) % POC Glucose (mg/dL) 145 H 101 H (75-99) mg/dL 04/28/19 04/29/19 Range/Units 20:46 06:42 RBC (4.30-5.90) m/uL Hgb (13.0-17.5) gm/dL Hct (39.0-53.0) % POC Glucose (mg/dL) 158 H 68 L (75-99) mg/dL Microbiology - Last 24 Hours (Table) 04/27/19 11:13 Blood Culture - Preliminary Blood No Growth after 24 hours Assessment and Plan Plan: S/p Cardiopulmonary arrest in setting of STEMI -Cardiology recs appreciated -C/w Aspirin, Brilinta, and Lipitor -Cardiac monitoring -C/w Lopressor and Amiodarone -CARMINA reviewed -- no endocarditis seen -Plan for AICD by Dr Alvarez 05/02 Chronic systolic CHF -C/w Losartan, Lopressor -CARMINA showing EF 20-25% MRSA colonization -F/u ID recs -Placed on contact precautions -Will likely need decolonization in setting of HIV infection and high risk cardiac disease Low TSH -Free T4 and Free T3 wnl -Possibly due to critical care illness and cardiac arrest Thrombocytopenia, resolved -Possibly due to critical illness -Monitor for now Normocytic anemia -B12 and Folate wnl -Monitor CBC Type 2 DM -C/w MANUELA with FS -C/w Levemir 25 U qhs. Start Lispro 5 U TID-AC HTN -C/w the above HIV -C/w home meds DVT prophylaxis -IPCDs Discussed with: Patient Anticipated discharge date: 05/[address]: Home A total of 35 minutes was spent on the care of this complex patient more than 50% of the time was spent in counseling and care coordination.
[2019-04-29 10:38] LABS: African American GFR (CKD) >90 (>60 ml/min/1.73 sqM); Anion Gap 11 mmol/L; Blood Urea Nitrogen 13 mg/dL (9-20); Calcium 9.8 mg/dL (8.4-10.2); Carbon Dioxide 24 mmol/L (22-30); Chloride 102 mmol/L (98-107); Glucose 237 mg/dL (74-99); Potassium 4.4 mmol/L (3.5-5.1); Sodium 137 mmol/L (137-145)
[2019-04-29 11:47] LABS: Glucose,Whole Blood 177 mg/dL (75-99)
[2019-04-29 13:01] VITALS: BMI 22.6
--- NOTE | 2019-04-29 13:51 | PN ---
PROGRESS NOTE Mr. Munson is in sinus rhythm, comfortable, doing well. He is going to have a single- chamber ICD on Thursday. His blood cultures are negative. He is doing well, tolerating amiodarone well. Vitals are stable. No JVD. S1, S2 heard normally, short systolic murmur noted. Lungs are clear. Abdomen and lower extremity exam is unchanged. MMODL / IJN: [id number] /
[2019-04-29 14:31] LABS: Glucose,Whole Blood 39 mg/dL (75-99)
[2019-04-29 14:55] LABS: Glucose,Whole Blood 62 mg/dL (75-99)
[2019-04-29 14:58] LABS: Glucose,Whole Blood 60 mg/dL (75-99)
--- NOTE | 2019-04-29 14:58 | P.PN ---
Subjective Progress Note Date: 04/29/19 Principal diagnosis: Cardiac arrest The patient is seen today 04/28/2019 in follow-up on the regular selective care unit. He is currently up ambulating in his room. He denies any chest pain, palpitations, lightheadedness or dizziness. No shortness of breath, cough or congestion. Maintaining O2 saturations up to 100% on room air. He is afebrile. Hemodynamically stable. His sputum was positive for MRSA. Chest x-ray showed improvement in the right basilar subsegmental changes/atelectasis. He did undergo a transesophageal echocardiogram yesterday that revealed no evidence of infectious endocarditis. Normal intracardiac valves. Ejection fraction 20-25% with regional wall motion abnormalities consistent with ischemic cardiomyopathy. The plan is for AICD placement on 05/02/2019. The patient is seen today 04/29/2019 in follow-up on the regular medical floor. He is currently resting comfortably in bed. Awake and alert in no acute distress. No worsening shortness of breath, cough or congestion. No chest pain. Maintaining O2 saturations up to 100% on room air. Blood cultures reveal no growth. Sputum culture with MRSA felt to be a colonizer per infectious disease. Sodium 137. Potassium 4.4. Creatinine 0.99. Objective - Vital Signs Vital signs: Vital Signs Temp 97.8 F 04/29/19 08:10 Pulse 62 04/29/19 12:00 Resp 18 04/29/19 12:00 BP 138/86 04/29/19 12:00 Pulse Ox 100 04/29/19 12:00 Intake & Output 04/28/19 04/29/19 04/29/19 18:59 06:59 18:59 Intake Total 180 1100 540 Output Total 600 Balance -420 1100 540 Weight 65.4 kg 65.4 kg Intake: IV 800 300 Sodium Chloride 0.9% 1, 800 300 000 ml @ 50 mls/hr IV . Q20H [facility] Rx#:[id number] Oral 180 300 240 Output: Urine 600 Other: Voiding Method Urinal Urinal # Voids 1 1 2 ABP, PAP, CO, CI - Last Documented Arterial Blood Pressure 158/75 - Exam GENERAL EXAM: Alert, active, pleasant 54-year-old gentleman, on room air, comfortable in no apparent distress. HEAD: Normocephalic. EYES: Normal reaction of pupils, equal size. NOSE: Clear with pink turbinates. THROAT: No erythema or exudates. NECK: No masses, no JVD. CHEST: No chest wall deformity. LUNGS: Equal air entry with crackles in the right lung base. CVS: S1 and S2 normal with no audible murmur, regular rhythm. ABDOMEN: No hepatosplenomegaly, normal bowel sounds, no guarding or rigidity. SPINE: No scoliosis or deformity SKIN: No rashes CENTRAL NERVOUS SYSTEM: No focal deficits, tone is normal in all 4 extremities. EXTREMITIES: There is no peripheral edema. No clubbing, no cyanosis. Peripheral pulses are intact. - Labs CBC & Chem 7: 04/28/19 07:19 04/29/19 10:06 Labs: Abnormal Lab Results - Last 24 Hours (Table) 04/28/19 04/28/19 04/29/19 Range/Units 16:32 20:46 06:42 Glucose (74-99) mg/dL POC Glucose (mg/dL) 101 H 158 H 68 L (75-99) mg/dL 04/29/19 04/29/19 04/29/19 Range/Units 10:06 11:45 14:20 Glucose 237 H (74-99) mg/dL POC Glucose (mg/dL) 177 H 39 L (75-99) mg/dL 04/29/19 Range/Units 14:38 Glucose (74-99) mg/dL POC Glucose (mg/dL) 62 L (75-99) mg/dL Microbiology - Last 24 Hours (Table) 04/27/19 11:13 Blood Culture - Preliminary Blood No Growth after 48 hours Assessment and Plan Assessment: Impression: 1 acute cardiac arrest secondary to acute ST elevation myocardial infarction 2 severe ischemic cardiomyopathy with ejection fraction 20-25%. CARMINA shows no vegetation on valves. Plan is for AICD placement. 3 acute hypoxic respiratory failure requiring intubation mechanical ventilatory support secondary to above. Recovered. On room air. 4history of CABG in 2005 insulin at [facility] 5 history of hypertension 6 HIV positive diagnosis since 2013 7 [id number] diabetes 8 previous history of tobacco dependence syndrome.presently in remission. 9 family history of early coronary artery disease 10 hyperlipidemia Plan: The patient was seen and evaluated by Dr. Horton. Stable from the pulmonary standpoint. Sputum is positive for MRSA felt to be a colonizer per infectious disease. We'll continue with the current treatment plan. CARMINA revealed no vegetation/endocarditis. AICD placement pending. I, the cosigning physician, performed a history & physical examination of the patient. Lungs sounds with crackles in the right posterior base. Maintaining good O2 saturations in the 90s on room air. I discussed the assessment and plan of care with my nurse practitioner, Rafia Rhodes. I attest to the above note as dictated by her.
[2019-04-29 15:13] LABS: Glucose,Whole Blood 74 mg/dL (75-99)
[2019-04-29 16:48] LABS: Glucose,Whole Blood 205 mg/dL (75-99)
[2019-04-29] MEDS: ACETAMINOPHEN TAB 325 MG TAB PO PRN (19:36)
[2019-04-29] MEDS: AMITRIPTYLINE HCL 50 MG TAB PO SCH (20:14)
[2019-04-29 20:50] LABS: Glucose,Whole Blood 340 mg/dL (75-99)
[2019-04-29] MEDS: INSULIN DETEMIR (LEVEMIR) 100 UNIT/ML SYR SQ SCH (20:54)
[2019-04-29] MEDS: HYDROcodone/APAP 10-325MG 1 EACH TAB PO PRN (20:54)
--- NOTE | 2019-04-29 22:53 | P.PN ---
Subjective Progress Note Date: 04/29/19 54-year-old -[place] male is well-known to the office for the treatment of his HIV infection. He has been intolerant of his antiretroviral therapy and has had adequate CD4 response with undetectable viral load for years. He over does have a history of the extensive cardiovascular disease and prior coronary artery bypass grafting procedure. The patient was not following up with cardiology and eventually was convinced on the importance and he has now been following with cardiology in the outpatient clinic. The patient apparently was cutting the grass when his partner noticed that he fell to the ground unconscious. The partner sprinted to the patient's side, it was obvious the patient was not breathing and consequently CPR was started. 911 had been called and the patient was transported to the emergency center. It appears in the field when the automated defibrillator was placed, a shockable rhythm was found and the patient did receive cardioversion. The patient did obtain a rhythm in the field but was intubated by EMS and brought to hospital. He was admitted to intensive care unit and seen by cardiology. He was taking the cardiac catheterization suite with concerns to a new acute cardiovascular event. Significant obstructive disease was found but no new lesions were seen. The patient has a known history of cardiomyopathy with an ejection fraction of about 25%. The patient fortunately improved and was extubated and once sedation was resolved the patient regained what appears to be a normal mentation. Showing an excellent response to the current treatments. As per protocol for intubated patient's sputum culture was obtained. The patient has chest x-rays that showed some heart failure but no significant pneumonia. He's had no fevers chills rigors sweats and does not have complaints of shortness of breath or of significant sputum production. He is actually feeling somewhat better and is wondering when he gets to go home. He understands the importance of AICD placement before his discharge to prevent another episode of sudden . 04/28/2019 patient is feeling better today. Awaits details about the placement of his AICD, which she understands is imperative given his recent cardiopulmonary arrest. He is feeling quite well today. He is eating well. Has no other new acute complaints. He is denying any neurological concerns. 04/29/2019 continues to have some improvement. No chest pain. Does have dyspnea with exertion. AICD placed Thursday. Objective - Vital Signs Vital signs: Vital Signs Temp 98.4 F 04/29/19 20:01 Pulse 70 04/29/19 20:11 Resp 16 04/29/19 20:01 BP 117/61 04/29/19 20:01 Pulse Ox 98 04/29/19 20:01 Intake & Output 04/29/19 04/29/19 04/30/19 06:59 18:59 06:59 Intake Total 1100 1002 Balance 1100 1002 Weight 65.4 kg 65.4 kg Intake: IV 800 300 Sodium Chloride 0.9% 1, 800 300 000 ml @ 50 mls/hr IV . Q20H [facility] Rx#:[id number] Oral 300 702 Other: Voiding Method Urinal Urinal # Voids 1 2 ABP, PAP, CO, CI - Last Documented Arterial Blood Pressure 158/75 - Exam Pleasant 54-year-old male who is sitting upright, recognizes me by name immediately upon entering the room. HEENT: Anicteric conjunctiva are pink and moist nasal mucosa grossly intact with out significant lesions, there is no thrush. Neck: The neck is supple without significant lymphadenopathy or thyromegaly. Lungs: Are symmetrical bilaterally entry. Expiratory wheezes are noted few sc attered crackles in the bases but no bronchial sounds all dullness or egophony Heart: Irregular with a positive S4 There is no significant murmur click or rub, PMI was nondisplaced. Abdomen: Positive bowel sounds soft and nontender without palpable masses or organomegaly. There was no guarding or rebound. Extremities: The upper extremities have excellent pulses they are symmetric, no significant petechiae or telangiectasia. No splinter hemorrhages were noted. The lower extremities are free from significant edema. The peripheral pulses were 2+ and symmetric. Neuro: Awake alert oriented to person place and time. There are no acute new gross focal sensory motor deficits. The chest wall does have some point tenderness over the costovertebral joints anteriorly especially to the left side, however there is no skin bruising noted to the chest wall. - Labs CBC & Chem 7: 04/28/19 07:19 04/29/19 10:06 Labs: Abnormal Lab Results - Last 24 Hours (Table) 04/29/19 04/29/19 04/29/19 Range/Units 06:42 10:06 11:45 Glucose 237 H (74-99) mg/dL POC Glucose (mg/dL) 68 L 177 H (75-99) mg/dL 04/29/19 04/29/19 04/29/19 Range/Units 14:20 14:38 14:56 Glucose (74-99) mg/dL POC Glucose (mg/dL) 39 L 62 L 60 L (75-99) mg/dL 04/29/19 04/29/19 04/29/19 Range/Units 15:11 16:46 20:49 Glucose (74-99) mg/dL POC Glucose (mg/dL) 74 L 205 H 340 H (75-99) mg/dL Microbiology - Last 24 Hours (Table) 04/27/19 11:13 Blood Culture - Preliminary Blood No Growth after 48 hours Laboratory Results WBC 5.8 k/uL (3.8-10.6) 04/28/19 07: RBC 3.43 m/uL (4.30-5.90) L 04/28/19 07:19 Hgb 11.0 gm/dL (13.0-17.5) L 04/28/19 07: Hct 33.7 % (39.0-53.0) L 04/28/19 07:19 MCV 98.2 fL (80.0-100.0) 04/28/19 07: MCH 32.0 pg (25.0-35.0) 04/28/19 07: MCHC 32.6 g/dL (31.0-37.0) 04/28/19 07:19 RDW 13.0 % (11.5-15.5) 04/28/19 07:19 Plt Count 151 k/uL (150-450) 04/28/19 07:19 Neutrophils % 63 % 04/25/19 05:07 Neutrophils % (Manual) 30 % 04/23/19 13:45 Lymphocytes % 23 % 04/25/19 05:07 Lymphocytes % (Manual) 59 % 04/23/19 13:45 Monocytes % 9 % 04/25/19 05:07 Monocytes % (Manual) 8 % 04/23/19 13:45 Eosinophils % 1 % 04/25/19 05:07 Eosinophils % (Manual) 3 % 04/23/19 13:45 Basophils % 0 % 04/25/19 05:07 Neutrophils # 3.7 k/uL (1.3-7.7) 04/25/19 05:07 Neutrophils # (Manual) 2.40 k/uL (1.3-7.7) 04/23/19 13:45 Lymphocytes # 1.3 k/uL (1.0-4.8) 04/25/19 05:07 Lymphocytes # (Manual) 4.72 k/uL (1.0-4.8) 04/23/19 13:45 Monocytes # 0.5 k/uL (0-1.0) 04/25/19 05:07 Monocytes # (Manual) 0.64 k/uL (0-1.0) 04/23/19 13:45 Eosinophils # 0.1 k/uL (0-0.7) 04/25/19 05:07 Eosinophils # (Manual) 0.24 k/uL (0-0.7) 04/23/19 13:45 Basophils # 0.0 k/uL (0-0.2) 04/25/19 05:07 Nucleated RBCs 0 /100 WBC (0-0) 04/23/19 13:45 Manual Slide Review Performed 04/23/19 13:45 Poikilocytosis (manual Present 04/23/19 13:45 PT 11.3 sec (9.0-12.0) 04/23/19 13:45 INR 1.1 (<1.2) 04/23/19 13:45 APTT 20.8 sec (22.0-30.0) L 04/23/19 13:45 Sample Site adel 04/24/19 08:10 ABG pH 7.32 (7.35-7.45) L 04/24/19 08:10 ABG pCO2 36 mmHg (35-45) 04/24/19 08:10 ABG pO2 179 mmHg (83-108) H 04/24/19 08:10 ABG HCO3 19 mmol/L (21-25) L 04/24/19 08:10 ABG Total CO2 20 mmol/L (19-24) 04/24/19 08:10 ABG O2 Saturation 99.0 % (94-97) H 04/24/19 08:10 ABG Base Excess -7.4 mmol/L 04/24/19 08:10 Jono Test Yes 04/24/19 08:10 FiO2 40 % 04/24/19 08:10 Sodium 137 mmol/L (137-145) 04/29/19 10:06 Potassium 4.4 mmol/L (3.5-5.1) 04/29/19 10:06 Chloride 102 mmol/L (98-107) 04/29/19 10:06 Carbon Dioxide 24 mmol/L (22-30) 04/29/19 10:06 Anion Gap 11 mmol/L 04/29/19 10:06 BUN 13 mg/dL (9-20) 04/29/19 10:06 Creatinine 0.99 mg/dL (0.66-1.25) 04/29/19 10:06 Est GFR (CKD-EPI)AfAm >90 (>60 ml/min/1.73 sqM) 04/29/19 10:06 Est GFR (CKD-EPI)NonAf 85 (>60 ml/min/1.73 sqM) 04/29/19 10:06 Glucose 237 mg/dL (74-99) H 04/29/19 10:06 POC Glucose (mg/dL) 340 mg/dL (75-99) H 04/29/19 20:49 POC Glu [employer] [facility] ID Christine Anaya 04/29/19 20:49 Calcium 9.8 mg/dL (8.4-10.2) 04/29/19 10:06 Magnesium 1.9 mg/dL (1.6-2.3) 04/24/19 05:00 Total Bilirubin 0.6 mg/dL (0.2-1.3) 04/23/19 13:45 AST 118 U/L (17-59) H 04/23/19 13:45 ALT 104 U/L (21-72) H 04/23/19 13:45 Alkaline Phosphatase 87 U/L (38-126) 04/23/19 13:45 Troponin I <0.012 ng/mL (0.000-0.034) 04/23/19 13:45 Total Protein 7.3 g/dL (6.3-8.2) 04/23/19 13:45 Albumin 4.4 g/dL (3.5-5.0) 04/23/19 13:45 Vitamin B12 1495.0 pg/mL (200.0-944.0) H 04/25/19 05:07 Folate 20.3 ng/mL 04/25/19 05:07 TSH 0.020 mIU/L (0.465-4.680) L 04/25/19 09:37 Total T4 5.1 ug/dL (4.5 - 10.9) 04/26/19 04:30 Free T4 0.87 ng/dL (0.78-2.19) 04/26/19 04:30 Free T3 pg/mL 3.9 pg/ml (2.8-5.3) 04/26/19 04:30 Urine Opiates Screen Detected (NotDetected) H 04/23/19 14:01 Ur Oxycodone Screen Not Detected (NotDetected) 04/23/19 14:01 Urine Methadone Screen Not Detected (NotDetected) 04/23/19 14:01 Ur Propoxyphene Screen Not Detected (NotDetected) 04/23/19 14:01 Ur Barbiturates Screen Not Detected (NotDetected) 04/23/19 14:01 U Tricyclic Antidepress Detected (NotDetected) H 04/23/19 14:01 Ur Phencyclidine Scrn Not Detected (NotDetected) 04/23/19 14:01 Ur Amphetamines Screen Not Detected (NotDetected) 04/23/19 14:01 U Methamphetamines Scrn Not Detected (NotDetected) 04/23/19 14:01 U Benzodiazepines Scrn Not Detected (NotDetected) 04/23/19 14:01 Urine Cocaine Screen Not Detected (NotDetected) 04/23/19 14:01 U Marijuana (THC) Screen Detected (NotDetected) H 04/23/19 14:01 Microbiology 04/27/19 11:13 Blood Blood Culture - Preliminary No Growth after 48 hours 04/24/19 08:40 Sputum Gram Stain - Final 04/24/19 08:40 Sputum Sputum Culture - Final Methicillin resist S. aureus Assessment and Plan (1) Human immunodeficiency virus [HIV] disease Current Visit: Yes Status: Acute Code(s): B20 - HUMAN IMMUNODEFICIENCY VIRUS [HIV] DISEASE SNOMED Code(s): 75276905 (2) Ischemic cardiomyopathy Narrative/Plan: 54-year-old male with long-standing history of HIV infection is been well controlled in the outpatient setting for several years. He is currently on Biktarvy and this is been well-tolerated with adequate CD4 is in excellent control viral load for the last several years. He does have the known history of severe coronary artery disease and ischemic cardiomyopathy. He suffered a bout of cardiopulmonary arrest and has as noted had the successful resuscitation and appears to have had quite a good response at this point in time. However given his ejection fraction of 20-25% he is in need of an AICD. The patient was intubated the routine sputum culture was obtained and there appears to be some colonizer with MRSA in his sputum. The patient does not have pneumonia by chest x-ray, he does not have evidence of pneumonia by symptoms.i The patient is in need of an urgent AICD be placed, and this time I have no specific reason to delay its implantation. 04/28/2019 the patient is showing further improvement. Await cardiology's plan about the placement of the AICD. His family has brought his Biktary from home he is taking that daily. There is no evidence of pneumonia or underlying infection at this point in time may proceed with AICD placement as per cardiolo gy schedule May 07 patient has further improvement but is having some difficulties with his memory that he believes have worsened since his acute event. He'll follow- up in the outpatient setting. Maintain his Biktarvy as before. The. He'll have his AICD placed on Thursday is evidence of negative blood cultures. Sputum culture is a colonizer. Current Visit: No Status: Chronic Code(s): I25.5 - ISCHEMIC CARDIOMYOPATHY SNOMED Code(s): 093429802 (3) Cardiopulmonary arrest with successful resuscitation Current Visit: Yes Status: Acute Code(s): I46.9 - CARDIAC ARREST, CAUSE UNSPECIFIED SNOMED Code(s): 208701054
[2019-04-30] MEDS: SODIUM CHLORIDE 0.9% 1,000 ML IV SCH ×2 (05:26→20:51)
[2019-04-30 06:30] LABS: Glucose,Whole Blood 135 mg/dL (75-99)
[2019-04-30] MEDS: INSULIN ASPART (NovoLOG) 100 UNIT/ML VIAL SQ SCH ×6 (06:36→20:54)
[2019-04-30] MEDS: PANTOPRAZOLE 40 MG TABLET PO SCH (06:41)
[2019-04-30 06:43] LABS: HCT 34.1 % (39.0-53.0); HGB 11.1 gm/dL (13.0-17.5); MCH 32.4 pg (25.0-35.0); MCHC 32.7 g/dL (31.0-37.0); Mean Platelet Volume 7.1; Platelet Count 174 k/uL (150-450); RBC 3.44 m/uL (4.30-5.90)
[2019-04-30 07:17] LABS: Eosinophils # (M) 0.05 k/uL (0-0.7); Monocytes # (M) 0.55 k/uL (0-1.0); Neutrophils % (M) 52 %; Nucleated Red Blood Cells 0 /100 WBC (0-0); Reactive Lymphocytes Present; Total Cells Counted 100
[2019-04-30] MEDS ORDERED: ONDANSETRON 4 MG/2 ML VIAL IVP ONE (07:35)
[2019-04-30] MEDS ORDERED: LIDOCAINE 1% 20 ML VIAL (10MG/ML) FOR IV START INTRADERMA PRN (07:35)
[2019-04-30] MEDS ORDERED: MORPHINE SULFATE 2 MG/ML SYRINGE IV PRN (07:35)
[2019-04-30] MEDS ORDERED: ONDANSETRON 4 MG/2 ML VIAL IVP PRN (07:35)
[2019-04-30] MEDS: IPRATROPIUM-ALBUTEROL 3 ML NEB INHALATION SCH ×4 (08:15→21:03)
--- NOTE | 2019-04-30 09:11 | P.PN ---
Subjective Progress Note Date: 04/30/19 Principal diagnosis: CAD This is a 54-year-old gentleman with a past medical history significant for CAD and prior coronary revascularization surgically and percutaneous A, ischemic cardiomyopathy, hypertension, dyslipidemia, was admitted to the hospital with acute non-ST deviation myocardial infarction and underwent a heart catheterization which revealed finding and a change compared to before. He does have severe ischemic cardiomyopathy. On follow-up with him today, he is asymptomatic. He denies any chest pain or chest discomfort or shortness of breath. No dizziness or lightheadedness. He is going to undergo an AICD this coming Thursday by Dr. Alvarez. He is on max imize medical treatment. Objective - Vital Signs Vital signs: Vital Signs Temp 98.2 F 04/30/19 03:30 Pulse 76 04/30/19 08:25 Resp 16 04/30/19 03:30 BP 132/75 04/30/19 03:30 Pulse Ox 100 04/30/19 03:30 Intake & Output 04/29/19 04/30/19 04/30/19 18:59 06:59 18:59 Intake Total 1002 360 Output Total 800 Balance 1002 -800 360 Weight 65.4 kg Intake: IV 300 Sodium Chloride 0.9% 1, 300 000 ml @ 50 mls/hr IV . Q20H [facility] Rx#:[id number] Oral 702 360 Output: Urine 800 Other: Voiding Method Urinal # Voids 2 1 ABP, PAP, CO, CI - Last Documented Arterial Blood Pressure 158/75 - Constitutional General appearance: Present: no acute distress - Respiratory Respiratory: bilateral: CTA - Cardiovascular Rhythm: regular Heart sounds: normal: S1, S2 - Labs CBC & Chem 7: 04/30/19 05:32 04/29/19 10:06 Labs: Abnormal Lab Results - Last 24 Hours (Table) 04/29/19 04/29/19 04/29/19 Range/Units 10:06 11:45 14:20 RBC (4.30-5.90) m/uL Hgb (13.0-17.5) gm/dL Hct (39.0-53.0) % Glucose 237 H (74-99) mg/dL POC Glucose (mg/dL) 177 H 39 L (75-99) mg/dL 04/29/19 04/29/19 04/29/19 Range/Units 14:38 14:56 15:11 RBC (4.30-5.90) m/uL Hgb (13.0-17.5) gm/dL Hct (39.0-53.0) % Glucose (74-99) mg/dL POC Glucose (mg/dL) 62 L 60 L 74 L (75-99) mg/dL 04/29/19 04/29/19 04/30/19 Range/Units 16:46 20:49 05:32 RBC 3.44 L (4.30-5.90) m/uL Hgb 11.1 L (13.0-17.5) gm/dL Hct 34.1 L (39.0-53.0) % Glucose (74-99) mg/dL POC Glucose (mg/dL) 205 H 340 H (75-99) mg/dL 04/30/19 Range/Units 06:28 RBC (4.30-5.90) m/uL Hgb (13.0-17.5) gm/dL Hct (39.0-53.0) % Glucose (74-99) mg/dL POC Glucose (mg/dL) 135 H (75-99) mg/dL Microbiology - Last 24 Hours (Table) 04/27/19 11:13 Blood Culture - Preliminary Blood No Growth after 48 hours Assessment and Plan Assessment: Assessment #1 acute non-ST deviation myocardial infarction #2 ventricular tachycardia #3 severe ischemic cardiomyopathy #4 multiple comorbid conditions Plan The patient is going to undergo an AICD Continue the current medical regimen Follow-up with the patient
[2019-04-30] MEDS: TICAGRELOR 90 MG TAB PO SCH ×2 (09:15→20:50)
[2019-04-30] MEDS: LOSARTAN 50 MG TAB PO SCH (09:15)
[2019-04-30] MEDS: ATORVASTATIN 80 MG TAB PO SCH (09:15)
[2019-04-30] MEDS: METOPROLOL TARTRATE 50 MG TAB PO SCH ×2 (09:15→20:50)
[2019-04-30] MEDS: AMIODARONE 200 MG TAB PO SCH ×2 (09:15→20:50)
[2019-04-30] MEDS: FLUCONAZOLE 100 MG TAB PO SCH (09:15)
[2019-04-30] MEDS: ASPIRIN 81 MG PO SCH (09:15)
[2019-04-30] MEDS: LACTATED RINGERS 1,000 ML IV SCH (09:16)
[2019-04-30] MEDS: Bictegrav/Emtricit/Tenofov Ala [Biktarvy 50-200-25 Mg Tablet] PO SCH (09:20)
[2019-04-30 12:17] LABS: Glucose,Whole Blood 217 mg/dL (75-99)
--- NOTE | 2019-04-30 12:25 | P.PN ---
Subjective Progress Note Date: 04/30/19 Principal diagnosis: The patient is a 54-year-old male with a past medical history of coronary artery disease status post CABG and multiple stents, systolic CHF (EF 25%), HIV, hype rtension, diabetes mellitus, hyperlipidemia suffered a cardiopulmonary arrest while at home, in the setting of STEMI. The patient was resuscitated by EMS wit ROSC after round of defibrillation. The patient was taken to the cath-lab where no interventions were made. The patient was extubated successfully on 04/24. The patient's sputum culture grew MRSA. The patient was placed on droplet precautions. ID was consulted. The patient underwent a CARMINA on 04/27 which revealed no evidence of any infectious endocarditis with normal intracardiac valves, with ejection fraction 20-25%. Patient is currently awaiting AICD placement to be done 05/02 Patient seen and examined in follow up. Patient apparently had episodes of hypoglycemia yesterday with blood sugar as well as 39, patient was symptomatic a nd place on hypoglycemia protocol. Patient seen by ID, patient scheduled for AICD placement on Thursday Objective - Vital Signs Vital signs: Vital Signs Temp 98 F 04/30/19 09:15 Pulse 79 04/30/19 11:50 Resp 16 04/30/19 11:50 BP 129/89 04/30/19 11:50 Pulse Ox 96 04/30/19 11:50 Intake & Output 04/29/19 04/30/19 04/30/19 18:59 06:59 18:59 Intake Total 1002 360 Output Total 800 Balance 1002 -800 360 Weight 65.4 kg Intake: IV 300 Sodium Chloride 0.9% 1, 300 000 ml @ 50 mls/hr IV . Q20H [facility] Rx#:[id number] Oral 702 360 Output: Urine 800 Other: Voiding Method Urinal Urinal # Voids 2 1 ABP, PAP, CO, CI - Last Documented Arterial Blood Pressure 158/75 - Exam Constitutional: No acute distress, conversant, pleasant Eyes: Anicteric sclerae, moist conjunctiva, no lid-lag, PERRLA ENMT: NC/AT,Oropharynx clear, no erythema, exudates Neck:Supple, FROM, no masses, or JVD, No carotid bruits; No thyromegaly Lungs: Clear to auscultation, Clear to percussion, Normal respiratory effort, no accessory muscle use Cardiovascular: Heart regular in rate and rhythm, No murmurs, gallops, or rubs no peripheral edema Abdominal: Soft Nontender, nom distended, no guarding, no rebound or rigidity, Normoactive bowel sounds No hepatomegaly, No splenomegaly, No palpable mass No abdominal wall hernia noted Skin: Normal temperature, tone, texture, turgor, No induration No subcutaneous nodules, No rash, lesions, No ulcers Extremities:No digital cyanosis No clubbing, Pedal pulses intact and symmetrical Radial pulses intact and symmetrical Normal gait and station, No calf tenderness Psychiatric: Alert and oriented to person, place and time, Appropriate affect Intact judgement Neuro: Muscles Strength 5/5 in all 4 extremities, Sensation to light touch grossly present throughout, Cranial nerves II-XII grossly intact. No focal sensory deficits - Labs CBC & Chem 7: 04/30/19 05:32 04/29/19 10:06 Labs: Abnormal Lab Results - Last 24 Hours (Table) 04/29/19 04/29/19 04/29/19 Range/Units 14:20 14:38 14:56 RBC (4.30-5.90) m/uL Hgb (13.0-17.5) gm/dL Hct (39.0-53.0) % POC Glucose (mg/dL) 39 L 62 L 60 L (75-99) mg/dL 04/29/19 04/29/19 04/29/19 Range/Units 15:11 16:46 20:49 RBC (4.30-5.90) m/uL Hgb (13.0-17.5) gm/dL Hct (39.0-53.0) % POC Glucose (mg/dL) 74 L 205 H 340 H (75-99) mg/dL 04/30/19 04/30/19 Range/Units 05:32 06:28 RBC 3.44 L (4.30-5.90) m/uL Hgb 11.1 L (13.0-17.5) gm/dL Hct 34.1 L (39.0-53.0) % POC Glucose (mg/dL) 135 H (75-99) mg/dL Microbiology - Last 24 Hours (Table) 04/27/19 11:13 Blood Culture - Preliminary Blood No Growth after 48 hours Assessment and Plan Plan: S/p Cardiopulmonary arrest in setting of STEMI -Cardiology recs appreciated -C/w Aspirin, Brilinta, and Lipitor -Cardiac monitoring -C/w Lopressor and Amiodarone -CARMINA reviewed -- no endocarditis seen -Plan for AICD by Dr Alvarez 05/02 Chronic systolic CHF with ischemic cardiomyopathy -C/w Losartan, Lopressor -CARMINA showing EF 20-25% MRSA colonization -F/u ID recs -Placed on contact precautions -Will likely need decolonization in setting of HIV infection and high risk cardiac disease HIV * Well controlled on bitarvy * Follows with Dr. Cipriano LACY in the outpatient setting Low TSH -Free T4 and Free T3 wnl -Possibly due to critical care illness and cardiac arrest Thrombocytopenia, resolved -Possibly due to critical illness -Monitor for now Normocytic anemia -B12 and Folate wnl -Monitor CBC Type 2 DM -C/w MANUELA with FS -C/w Levemir 25 U qhs. Discontinue prandial insulin due to episodes of hypoglycemia HTN -C/w the above HIV -C/w home meds DVT prophylaxis -IPCDs Discussed with: Patient Anticipated discharge date: 05/[address]: Home A total of 35 minutes was spent on the care of this complex patient more than 50% of the time was spent in counseling and care coordination.
[2019-04-30 17:03] LABS: Glucose,Whole Blood 261 mg/dL (75-99)
[2019-04-30 20:14] LABS: Glucose,Whole Blood 158 mg/dL (75-99)
[2019-04-30] MEDS: SENNOSIDES-DOCUSATE SODIUM 1 EACH TAB PO SCH (20:50)
[2019-04-30] MEDS: AMITRIPTYLINE HCL 50 MG TAB PO SCH (20:50)
[2019-04-30] MEDS: HYDROcodone/APAP 10-325MG 1 EACH TAB PO PRN (20:50)
[2019-04-30] MEDS: INSULIN DETEMIR (LEVEMIR) 100 UNIT/ML SYR SQ SCH (20:51)
[2019-05-01 02:16] LABS: Glucose,Whole Blood 192 mg/dL (75-99)
[2019-05-01] MEDS: INSULIN ASPART (NovoLOG) 100 UNIT/ML VIAL SQ SCH ×4 (06:30→20:59)
[2019-05-01] MEDS: PANTOPRAZOLE 40 MG TABLET PO SCH (06:33)
[2019-05-01 06:36] LABS: Glucose,Whole Blood 153 mg/dL (75-99)
[2019-05-01] MEDS: AMIODARONE 200 MG TAB PO SCH ×2 (08:46→20:57)
[2019-05-01] MEDS: METOPROLOL TARTRATE 50 MG TAB PO SCH ×2 (08:46→20:58)
[2019-05-01] MEDS: ATORVASTATIN 80 MG TAB PO SCH (08:46)
[2019-05-01] MEDS: ASPIRIN 81 MG PO SCH (08:47)
[2019-05-01] MEDS: ACETAMINOPHEN TAB 325 MG TAB PO PRN (08:47)
[2019-05-01] MEDS: SENNOSIDES-DOCUSATE SODIUM 1 EACH TAB PO SCH ×2 (08:47→21:00)
[2019-05-01] MEDS: TICAGRELOR 90 MG TAB PO SCH ×2 (08:47→20:58)
[2019-05-01] MEDS: LOSARTAN 50 MG TAB PO SCH (08:47)
[2019-05-01] MEDS: FLUCONAZOLE 100 MG TAB PO SCH (08:47)
[2019-05-01] MEDS: LACTATED RINGERS 1,000 ML IV SCH (08:48)
[2019-05-01] MEDS: IPRATROPIUM-ALBUTEROL 3 ML NEB INHALATION SCH ×4 (08:49→21:38)
[2019-05-01] MEDS: Bictegrav/Emtricit/Tenofov Ala [Biktarvy 50-200-25 Mg Tablet] PO SCH (08:49)
--- NOTE | 2019-05-01 08:50 | P.PN ---
Subjective Progress Note Date: 05/01/19 Principal diagnosis: The patient is a 54-year-old male with a past medical history of coronary artery disease status post CABG and multiple stents, systolic CHF (EF 25%), HIV, hype rtension, diabetes mellitus, hyperlipidemia suffered a cardiopulmonary arrest while at home, in the setting of STEMI. The patient was resuscitated by EMS wit ROSC after round of defibrillation. The patient was taken to the cath-lab where no interventions were made. The patient was extubated successfully on 04/24. The patient's sputum culture grew MRSA. The patient was placed on droplet precautions. ID was consulted. The patient underwent a CARMINA on 04/27 which revealed no evidence of any infectious endocarditis with normal intracardiac valves, with ejection fraction 20-25%. Patient is currently awaiting AICD placement to be done 05/02 Patient seen and examined in follow up. patient doing well w/o complaints, reports was taking 32 U long acting insulin at home. Blood sugars elevated this 167. No acute events overnight, AICD placement tomorrow Objective - Vital Signs Vital signs: Vital Signs Temp 98 F 05/01/19 03:20 Pulse 72 05/01/19 03:20 Resp 16 05/01/19 03:20 BP 128/88 05/01/19 03:20 Pulse Ox 99 05/01/19 03:20 Intake & Output 04/30/19 05/01/19 05/01/19 18:59 06:59 18:59 Intake Total 1000 Balance 1000 Weight 65 kg Intake: IV 400 Sodium Chloride 0.9% 1, 400 000 ml @ 50 mls/hr IV . Q20H [facility] Rx#:[id number] Oral 600 Other: Voiding Method Urinal Urinal # Voids 3 ABP, PAP, CO, CI - Last Documented Arterial Blood Pressure 158/75 - Exam Constitutional: No acute distress, conversant, pleasant Eyes: Anicteric sclerae, moist conjunctiva, no lid-lag, PERRLA ENMT: NC/AT,Oropharynx clear, no erythema, exudates Neck:Supple, FROM, no masses, or JVD, No carotid bruits; No thyromegaly Lungs: Clear to auscultation, Clear to percussion, Normal respiratory effort, no accessory muscle use Cardiovascular: Heart regular in rate and rhythm, No murmurs, gallops, or rubs no peripheral edema Abdominal: Soft Nontender, nom distended, no guarding, no rebound or rigidity, Normoactive bowel sounds No hepatomegaly, No splenomegaly, No palpable mass No abdominal wall hernia noted Skin: Normal temperature, tone, texture, turgor, No induration No subcutaneous nodules, No rash, lesions, No ulcers Extremities:No digital cyanosis No clubbing, Pedal pulses intact and symmetrical Radial pulses intact and symmetrical Normal gait and station, No calf tenderness Psychiatric: Alert and oriented to person, place and time, Appropriate affect Intact judgement Neuro: Muscles Strength 5/5 in all 4 extremities, Sensation to light touch grossly present throughout, Cranial nerves II-XII grossly intact. No focal sensory deficits - Labs CBC & Chem 7: 04/30/19 05:32 04/29/19 10:06 Labs: Abnormal Lab Results - Last 24 Hours (Table) 04/30/19 04/30/19 04/30/19 Range/Units 11:56 16:54 20:12 POC Glucose (mg/dL) 217 H 261 H 158 H (75-99) mg/dL 05/01/19 05/01/19 Range/Units 02:14 06:27 POC Glucose (mg/dL) 192 H 153 H (75-99) mg/dL Microbiology - Last 24 Hours (Table) 04/27/19 11:13 Blood Culture - Preliminary Blood No Growth after 72 hours Assessment and Plan Plan: S/p Cardiopulmonary arrest in setting of STEMI -Cardiology recs appreciated -C/w Aspirin, Brilinta, and Lipitor -Cardiac monitoring -C/w Lopressor and Amiodarone -CARMINA reviewed -- no endocarditis seen -Plan for AICD by Dr Alvarez 05/02 Chronic systolic CHF with ischemic cardiomyopathy -C/w Losartan, Lopressor -CARMINA showing EF 20-25% MRSA colonization -F/u ID recs -Placed on contact precautions -Will likely need decolonization in setting of HIV infection and high risk cardiac disease HIV * Well controlled on bitarvy * Follows with Dr. Cipriano LACY in the outpatient setting Low TSH -Free T4 and Free T3 wnl -Possibly due to critical care illness and cardiac arrest Thrombocytopenia, resolved -Possibly due to critical illness -Monitor for now Normocytic anemia -B12 and Folate wnl -Monitor CBC Type 2 DM -C/w MANUELA with FS -C/w Levemir increase to 30 U qhs. Discontinue prandial insulin due to episodes of hypoglycemia HTN -C/w the above HIV -C/w home meds DVT prophylaxis -IPCDs Discussed with: Patient Anticipated discharge date: 05/[address]: Home A total of 35 minutes was spent on the care of this complex patient more than 50% of the time was spent in counseling and care coordination.
--- NOTE | 2019-05-01 10:06 | P.PN ---
Subjective Progress Note Date: 05/01/19 Principal diagnosis: CAD This is a 54-year-old gentleman with a past medical history significant for CAD and prior coronary revascularization surgically and percutaneous A, ischemic cardiomyopathy, hypertension, dyslipidemia, was admitted to the hospital with acute non-ST deviation myocardial infarction and underwent a heart catheterization which revealed finding and a change compared to before. He does have severe ischemic cardiomyopathy. On follow-up with the patient today, May [id number], the patient denies any chest pain or chest discomfort or shortness of breath. Hemodynamically he is stable. He is going to undergo single-chamber AICD tomorrow. Beside that he is on maximal medical treatment for the coronary artery disease as well as cardiomyopathy. Objective - Vital Signs Vital signs: Vital Signs Temp 98.1 F 05/01/19 08:40 Pulse 70 05/01/19 09:01 Resp 16 05/01/19 08:40 BP 142/79 05/01/19 08:40 Pulse Ox 100 05/01/19 08:40 Intake & Output 04/30/19 05/01/19 05/01/19 18:59 06:59 18:59 Intake Total 1000 Balance 1000 Weight 65 kg Intake: IV 400 Sodium Chloride 0.9% 1, 400 000 ml @ 50 mls/hr IV . Q20H [facility] Rx#:[id number] Oral 600 Other: Voiding Method Urinal Urinal Urinal # Voids 3 ABP, PAP, CO, CI - Last Documented Arterial Blood Pressure 158/75 - Constitutional General appearance: Present: no acute distress - Respiratory Respiratory: bilateral: diminished - Cardiovascular Rhythm: regular Heart sounds: normal: S1, S2 - Labs CBC & Chem 7: 04/30/19 05:32 04/29/19 10:06 Labs: Abnormal Lab Results - Last 24 Hours (Table) 04/30/19 04/30/19 04/30/19 Range/Units 11:56 16:54 20:12 POC Glucose (mg/dL) 217 H 261 H 158 H (75-99) mg/dL 05/01/19 05/01/19 Range/Units 02:14 06:27 POC Glucose (mg/dL) 192 H 153 H (75-99) mg/dL Microbiology - Last 24 Hours (Table) 04/27/19 11:13 Blood Culture - Preliminary Blood No Growth after 72 hours Assessment and Plan Assessment: Assessment #1 acute non-ST deviation myocardial infarction #2 ventricular tachycardia #3 severe ischemic cardiomyopathy #4 multiple comorbid conditions Plan The patient is going to undergo an AICD tomorrow morning Continue the current medical regimen Follow-up with the patient
[2019-05-01 12:00] LABS: Glucose,Whole Blood 212 mg/dL (75-99)
[2019-05-01 17:06] LABS: Glucose,Whole Blood 217 mg/dL (75-99)
[2019-05-01 20:35] LABS: Glucose,Whole Blood 210 mg/dL (75-99)
[2019-05-01] MEDS: SODIUM CHLORIDE 0.9% 1,000 ML IV SCH (20:50)
[2019-05-01] MEDS: AMITRIPTYLINE HCL 50 MG TAB PO SCH (20:58)
[2019-05-01] MEDS: INSULIN DETEMIR (LEVEMIR) 100 UNIT/ML SYR SQ SCH (20:58)
[2019-05-02 02:39] LABS: Glucose,Whole Blood 72 mg/dL (75-99)
[2019-05-02 05:57] LABS: Glucose,Whole Blood 107 mg/dL (75-99)
[2019-05-02] MEDS: METOPROLOL TARTRATE 50 MG TAB PO SCH ×2 (05:58→19:49)
[2019-05-02] MEDS: HYDROcodone/APAP 10-325MG 1 EACH TAB PO PRN (05:58)
[2019-05-02] MEDS: AMIODARONE 200 MG TAB PO SCH ×2 (05:59→19:49)
[2019-05-02] MEDS: FLUCONAZOLE 100 MG TAB PO SCH (05:59)
[2019-05-02] MEDS: TICAGRELOR 90 MG TAB PO SCH ×2 (05:59→19:50)
[2019-05-02] MEDS: ATORVASTATIN 80 MG TAB PO SCH (06:00)
[2019-05-02] MEDS: SODIUM CHLORIDE 0.9% 1,000 ML IV SCH ×2 (06:00→16:35)
[2019-05-02] MEDS: PANTOPRAZOLE 40 MG TABLET PO SCH (06:00)
[2019-05-02] MEDS: SENNOSIDES-DOCUSATE SODIUM 1 EACH TAB PO SCH ×2 (06:00→19:50)
[2019-05-02] MEDS: LOSARTAN 50 MG TAB PO SCH (06:00)
[2019-05-02] MEDS: ASPIRIN 81 MG PO SCH (06:00)
[2019-05-02] MEDS: Bictegrav/Emtricit/Tenofov Ala [Biktarvy 50-200-25 Mg Tablet] PO SCH (06:01)
[2019-05-02] MEDS: INSULIN ASPART (NovoLOG) 100 UNIT/ML VIAL SQ SCH ×4 (06:02→21:22)
[2019-05-02 06:29] LABS: HCT 36.4 % (39.0-53.0); HGB 11.8 gm/dL (13.0-17.5); MCHC 32.4 g/dL (31.0-37.0); MCV 98.8 fL (80.0-100.0); Mean Platelet Volume 6.6; Platelet Count 255 k/uL (150-450); RBC 3.69 m/uL (4.30-5.90); RDW 12.8 % (11.5-15.5); WBC 8.4 k/uL (3.8-10.6)
[2019-05-02] MEDS: IPRATROPIUM-ALBUTEROL 3 ML NEB INHALATION SCH ×4 (08:10→20:10)
[2019-05-02 08:13] LABS: Eosinophils # (M) 0.25 k/uL (0-0.7); Lymphocytes # (M) 2.27 k/uL (1.0-4.8); Monocytes # (M) 0.76 k/uL (0-1.0); Neutrophils % (M) 61 %; Nucleated Red Blood Cells 0 /100 WBC (0-0); Total Cells Counted 100
[2019-05-02] MEDS ORDERED: ceFAZolin 1,000 MG in SODIUM CHLORIDE 0.9% IRRIGATIO 250 ML IRRIGATION ONE (08:38)
[2019-05-02] MEDS ORDERED: SODIUM CHLORIDE 0.9% 1,000 ML IV SCH (08:45)
[2019-05-02] MEDS: LACTATED RINGERS 1,000 ML IV SCH (09:08)
--- NOTE | 2019-05-02 10:48 | P.PN ---
Subjective Progress Note Date: 05/02/19 Principal diagnosis: The patient is a 54-year-old male with a past medical history of coronary artery disease status post CABG and multiple stents, systolic CHF (EF 25%), HIV, hype rtension, diabetes mellitus, hyperlipidemia suffered a cardiopulmonary arrest while at home, in the setting of STEMI. The patient was resuscitated by EMS wit ROSC after round of defibrillation. The patient was taken to the cath-lab where no interventions were made. The patient was extubated successfully on 04/24. The patient's sputum culture grew MRSA. The patient was placed on droplet precautions. ID was consulted. The patient underwent a CARMINA on 04/27 which revealed no evidence of any infectious endocarditis with normal intracardiac valves, with ejection fraction 20-25%. Patient is currently awaiting AICD placement to be done 05/02 Patient seen and examined in follow up. patient doing well w/o complaints, reports was taking 32 U long acting insulin at home. Blood sugars 107 this am, No acute events overnight, AICD placement later today Objective - Vital Signs Vital signs: Vital Signs Temp 98.2 F 05/02/19 07:49 Pulse 74 05/02/19 08:22 Resp 16 05/02/19 07:49 BP 149/93 05/02/19 07:49 Pulse Ox 99 05/02/19 07:49 Intake & Output 05/01/19 05/02/19 05/02/19 18:59 06:59 18:59 Intake Total 640 10 Balance 640 10 Weight 64.8 kg Intake: IV 400 10 Invasive Line 4 10 Sodium Chloride 0.9% 1, 400 000 ml @ 50 mls/hr IV . Q20H [facility] Rx#:[id number] Oral 240 Other: Voiding Method Urinal Urinal # Voids 1 1 ABP, PAP, CO, CI - Last Documented Arterial Blood Pressure 158/75 - Exam Constitutional: No acute distress, conversant, pleasant Eyes: Anicteric sclerae, moist conjunctiva, no lid-lag, PERRLA ENMT: NC/AT,Oropharynx clear, no erythema, exudates Neck:Supple, FROM, no masses, or JVD, No carotid bruits; No thyromegaly Lungs: Clear to auscultation, Clear to percussion, Normal respiratory effort, no accessory muscle use Cardiovascular: Heart regular in rate and rhythm, No murmurs, gallops, or rubs no peripheral edema Abdominal: Soft Nontender, nom distended, no guarding, no rebound or rigidity, Normoactive bowel sounds No hepatomegaly, No splenomegaly, No palpable mass No abdominal wall hernia noted Skin: Normal temperature, tone, texture, turgor, No induration No subcutaneous nodules, No rash, lesions, No ulcers Extremities:No digital cyanosis No clubbing, Pedal pulses intact and s ymmetrical Radial pulses intact and symmetrical Normal gait and station, No calf tenderness Psychiatric: Alert and oriented to person, place and time, Appropriate affect Intact judgement Neuro: Muscles Strength 5/5 in all 4 extremities, Sensation to light touch grossly present throughout, Cranial nerves II-XII grossly intact. No focal sensory deficits - Labs CBC & Chem 7: 05/02/19 05:35 04/29/19 10:06 Labs: Abnormal Lab Results - Last 24 Hours (Table) 05/01/19 05/01/19 05/01/19 Range/Units 11:51 17:02 20:34 RBC (4.30-5.90) m/uL Hgb (13.0-17.5) gm/dL Hct (39.0-53.0) % POC Glucose (mg/dL) 212 H 217 H 210 H (75-99) mg/dL 05/02/19 05/02/19 05/02/19 Range/Units 02:36 05:35 05:55 RBC 3.69 L (4.30-5.90) m/uL Hgb 11.8 L (13.0-17.5) gm/dL Hct 36.4 L (39.0-53.0) % POC Glucose (mg/dL) 72 L 107 H (75-99) mg/dL Microbiology - Last 24 Hours (Table) 04/27/19 11:13 Blood Culture - Preliminary Blood No Growth after 96 hours Assessment and Plan Plan: S/p Cardiopulmonary arrest in setting of STEMI -Cardiology recs appreciated -C/w Aspirin, Brilinta, and Lipitor -Cardiac monitoring -C/w Lopressor and Amiodarone -CARMINA reviewed -- no endocarditis seen -Plan for AICD by Dr Alvarez 05/02 Chronic systolic CHF with ischemic cardiomyopathy -C/w Losartan, Lopressor -CARMINA showing EF 20-25% MRSA colonization -F/u ID recs -Placed on contact precautions -Will likely need decolonization in setting of HIV infection and high risk cardiac disease HIV * Well controlled on bitarvy * Follows with Dr. Cipriano LACY in the outpatient setting Low TSH -Free T4 and Free T3 wnl -Possibly due to critical care illness and cardiac arrest Thrombocytopenia, resolved -Possibly due to critical illness -Monitor for now Normocytic anemia -B12 and Folate wnl -Monitor CBC Type 2 DM -C/w MANUELA with FS -C/w Levemir increase to 30 U qhs. Discontinue prandial insulin due to episodes of hypoglycemia HTN -C/w the above HIV -C/w home meds DVT prophylaxis -IPCDs Discussed with: Patient Anticipated discharge date: 05/[address]: Home A total of 35 minutes was spent on the care of this complex patient more than 50% of the time was spent in counseling and care coordination.
[2019-05-02] MEDS ORDERED: LIDOCAINE 1% INJ 10MG/ML (20 ML MDV) ONE (11:46)
[2019-05-02] MEDS ORDERED: LACTATED RINGERS 1,000 ML IV ONE (13:30)
[2019-05-02] MEDS ORDERED: fentaNYL (PF) 50 MCG/ML 2 ML AMP ONE (13:30)
[2019-05-02] MEDS ORDERED: PROPOFOL 10 MG/ML 20 ML VIAL IV ONE (13:30)
[2019-05-02] MEDS ORDERED: PHENYLEPHRINE-0.9% NACL SYG 1 MG/10 ML SYRINGE ONE (13:30)
[2019-05-02] MEDS ORDERED: MIDAZOLAM 2 MG/2 ML VIAL ONE (13:30)
[2019-05-02] MEDS ORDERED: SODIUM CHLORIDE 0.9% 250 ML IV ONE (13:45)
[2019-05-02] MEDS ORDERED: IOPAMIDOL-250 50ML BTL IV ONE (13:53)
[2019-05-02] MEDS: LIDOCAINE 1% INJ 10MG/ML (20 ML MDV) SQ ONE ×2 (14:17→14:24)
[2019-05-02] MEDS ORDERED: ACETAMINOPHEN TAB 325 MG TAB PO PRN (15:35)
[2019-05-02] MEDS ORDERED: ACETAMINOPHEN IV (For NPO) 1,000 MG in EMPTY BAG 1 BAG IVPB ONE (15:35)
[2019-05-02 16:14] LABS: Glucose,Whole Blood 149 mg/dL (75-99)
[2019-05-02 16:37] LABS: Glucose,Whole Blood 131 mg/dL (75-99)
--- NOTE | 2019-05-02 16:49 | PCN ---
PROCEDURE NOTE This is a 54-year-old male patient who presented with a cardiac arrest. Initially it was thought that he had non-Q-wave myocardial infarction. However, he underwent coronary angiography and there was no progression of his coronary artery disease. Therefore, this gentleman did not have an acute myocardial infarction. His cardiac enzymes were mildly elevated on account of the cardiac arrest. He has severe ischemic cardiomyopathy. DESCRIPTION OF PROCEDURE: The patient was loaded with IV and followed by oral amiodarone. Patient was brought to the vascular lab in a fasting state. Written informed consent was obtained prior to the procedure. The left shoulder area was prepped and draped as per protocol. 1% lidocaine was used for local anesthesia. A 4 cm incision was made parallel to the deltopectoral groove, about 1.5 cm medial to the incision. It was carried down to the level of the pectoralis muscle. A subfascial pocket was made. Hemostasis was assured. The left axillary vein was accessed at a single point and via appropriately-sized introducer sheaths a single lead was positioned in the mid RV septum and screwed in. The R-waves were greater than 10 mV. Pacing threshold 0.75 V at 0.5 milliseconds. 10 V test negative. The leads were secured to the underlying pectoralis fascia using 2 nonabsorbable sutures. Pocket was irrigated with antibiotic solution. Leads were connected to the generator. [employer] ICD generator. The wound was closed in 3 layers and dressed per protocol. The [employer] lead java developer was a model #7122 Q 58 cm length and serial number [id number]. The ICD generator was a [employer] model CD 1411-36 Q serial #[id number]. The lead and generator were then placed in subfascial pocket. The wound was closed in 3 layers and dressed per protocol. DFT testing under anesthesia: DC fibber shock was used to induce ventricular fibrillation. This was adequately and appropriately detected at least sensitivity, but a 10-joule shock followed by a 20 joule shock in the configuration was unsuccessful. The patient had to be externally defibrillated. The patient was retested after 2 to 3 minutes once he became stable in the ck configuration. In the ck configuration, a 15 joule shock was successful in defibrillating the patient. The device was then programmed to the immediate RIT programming with appropriate antitachycardia pacing cardioversion defibrillation for the first cardioversion at 15 joules and the first defibrillation at max output. Back-up VVI pacing at 40 beats per minute. The patient tolerated the procedure well without any acute complications. RESULTS: Successful single-chamber ICD implantation for secondary prevention of sudden cardiac in this gentleman with class 2-3 congestive heart failure, chronic LV systolic dysfunction, known underlying coronary artery disease, but without any new occlusive coronary artery disease. The patient did not have an acute myocardial infarction at this admission. MMODL / IJN: [id number] /
[2019-05-02] MEDS: AMITRIPTYLINE HCL 50 MG TAB PO SCH (19:50)
[2019-05-02 19:59] VITALS: RESP 18
[2019-05-02 21:19] LABS: Glucose,Whole Blood 298 mg/dL (75-99)
[2019-05-02] MEDS: HYDROcodone/APAP 5-325MG 1 EACH TAB PO PRN (21:22)
[2019-05-02] MEDS: INSULIN DETEMIR (LEVEMIR) 100 UNIT/ML SYR SQ SCH (21:22)
--- NOTE | 2019-05-02 22:47 | P.PN ---
Subjective Progress Note Date: 05/02/19 54-year-old -[place] male is well-known to the office for the treatment of his HIV infection. He has been intolerant of his antiretroviral therapy and has had adequate CD4 response with undetectable viral load for years. He over does have a history of the extensive cardiovascular disease and prior coronary artery bypass grafting procedure. The patient was not following up with cardiology and eventually was convinced on the importance and he has now been following with cardiology in the outpatient clinic. The patient apparently was cutting the grass when his partner noticed that he fell to the ground unconscious. The partner sprinted to the patient's side, it was obvious the patient was not breathing and consequently CPR was started. 911 had been called and the patient was transported to the emergency center. It appears in the field when the automated defibrillator was placed, a shockable rhythm was found and the patient did receive cardioversion. The patient did obtain a rhythm in the field but was intubated by EMS and brought to hospital. He was admitted to intensive care unit and seen by cardiology. He was taking the cardiac catheterization suite with concerns to a new acute cardiovascular event. Significant obstructive disease was found but no new lesions were seen. The patient has a known history of cardiomyopathy with an ejection fraction of about 25%. The patient fortunately improved and was extubated and once sedation was resolved the patient regained what appears to be a normal mentation. Showing an excellent response to the current treatments. As per protocol for intubated patient's sputum culture was obtained. The patient has chest x-rays that showed some heart failure but no significant pneumonia. He's had no fevers chills rigors sweats and does not have complaints of shortness of breath or of significant sputum production. He is actually feeling somewhat better and is wondering when he gets to go home. He understands the importance of AICD placement before his discharge to prevent another episode of sudden . 04/28/2019 patient is feeling better today. Awaits details about the placement of his AICD, which she understands is imperative given his recent cardiopulmonary arrest. He is feeling quite well today. He is eating well. Has no other new acute complaints. He is denying any neurological concerns. 04/29/2019 continues to have some improvement. No chest pain. Does have dyspnea with exertion. AICD placed Thursday. 05/02/2019 the patient is now status post his AICD placement. Other than some minimal tenderness at the insertion site he is doing quite well except it is evident that he is having some difficulties with his memory. He however is very clear that he will need some paperwork to be filled out so she will go to work any further will need to get onto some type of disability. His chest discomfort status post cardiopulmonary resuscitation is improving no chills. Objective - Vital Signs Vital signs: Vital Signs Temp 98 F 05/02/19 19:55 Pulse 78 05/02/19 20:22 Resp 18 05/02/19 19:55 BP 136/86 05/02/19 19:55 Pulse Ox 98 05/02/19 19:55 Intake & Output 05/02/19 05/02/19 05/03/19 06:59 18:59 06:59 Intake Total 10 790 Balance 10 790 Weight 64.8 kg Intake: IV 10 550 Invasive Line 4 10 Oral 240 Other: Voiding Method Urinal Urinal # Voids 1 1 ABP, PAP, CO, CI - Last Documented Arterial Blood Pressure 158/75 - Exam Pleasant 54-year-old male who is sitting upright, recognizes me by name immediately upon entering the room. HEENT: Anicteric conjunctiva are pink and moist nasal mucosa grossly intact without significant lesions, there is no thrush. Neck: The neck is supple without significant lymphadenopathy or thyromegaly. Lungs: Are symmetrical bilaterally entry. Expiratory wheezes are noted few scattered crackles in the bases but no bronchial sounds all dullness or egophony Heart: Irregular with a positive S4 There is no significant murmur click or rub, PMI was nondisplaced. Abdomen: Positive bowel sounds soft and nontender without palpable masses or organomegaly. There was no guarding or rebound. Extremities: The upper extremities have excellent pulses they are symmetric, no significant petechiae or telangiectasia. No splinter hemorrhages were noted. The lower extremities are free from significant edema. The peripheral pulses were 2+ and symmetric. Neuro: Awake alert oriented to person place and time. There are no acute new gross focal sensory motor deficits. The chest wall does have some point tenderness over the costovertebral joints anteriorly more to the left side but improved however there is no skin bruising noted to the chest wall. - Labs CBC & Chem 7: 05/02/19 05:35 04/29/19 10:06 Labs: Abnormal Lab Results - Last 24 Hours (Table) 05/02/19 05/02/19 05/02/19 Range/Units 02:36 05:35 05:55 RBC 3.69 L (4.30-5.90) m/uL Hgb 11.8 L (13.0-17.5) gm/dL Hct 36.4 L (39.0-53.0) % POC Glucose (mg/dL) 72 L 107 H (75-99) mg/dL 05/02/19 05/02/19 05/02/19 Range/Units 16:12 16:36 21:18 RBC (4.30-5.90) m/uL Hgb (13.0-17.5) gm/dL Hct (39.0-53.0) % POC Glucose (mg/dL) 149 H 131 H 298 H (75-99) mg/dL Microbiology - Last 24 Hours (Table) 04/27/19 11:13 Blood Culture - Preliminary Blood No Growth after 120 hours Laboratory Results WBC 8.4 k/uL (3.8-10.6) 05/02/19 05:35 RBC 3.69 m/uL (4.30-5.90) L 05/02/19 05:35 Hgb 11.8 gm/dL (13.0-17.5) L 05/02/19 05:35 Hct 36.4 % (39.0-53.0) L 05/02/19 05:35 MCV 98.8 fL (80.0-100.0) 05/02/19 05:35 MCH 32.0 pg (25.0-35.0) 05/02/19 05:35 MCHC 32.4 g/dL (31.0-37.0) 05/02/19 05:35 RDW 12.8 % (11.5-15.5) 05/02/19 05:35 Plt Count 255 k/uL (150-450) 05/02/19 05:35 Neutrophils % 63 % 04/25/19 05:07 Neutrophils % (Manual) 61 % 05/02/19 05:35 Lymphocytes % 23 % 04/25/19 05:07 Lymphocytes % (Manual) 27 % 05/02/19 05:35 Monocytes % 9 % 04/25/19 05:07 Monocytes % (Manual) 9 % 05/02/19 05:35 Eosinophils % 1 % 04/25/19 05:07 Eosinophils % (Manual) 3 % 05/02/19 05:35 Basophils % 0 % 04/25/19 05:07 Neutrophils # 3.7 k/uL (1.3-7.7) 04/25/19 05:07 Neutrophils # (Manual) 5.12 k/uL (1.3-7.7) 05/02/19 05:35 Lymphocytes # 1.3 k/uL (1.0-4.8) 04/25/19 05:07 Lymphocytes # (Manual) 2.27 k/uL (1.0-4.8) 05/02/19 05:35 Monocytes # 0.5 k/uL (0-1.0) 04/25/19 05:07 Monocytes # (Manual) 0.76 k/uL (0-1.0) 05/02/19 05:35 Eosinophils # 0.1 k/uL (0-0.7) 04/25/19 05:07 Eosinophils # (Manual) 0.25 k/uL (0-0.7) 05/02/19 05:35 Basophils # 0.0 k/uL (0-0.2) 04/25/19 05:07 Nucleated RBCs 0 /100 WBC (0-0) 05/02/19 05:35 Manual Slide Review Performed 05/02/19 05:35 Reactive Lymphocytes Present 04/30/19 05:32 RBC Morphology Normal 05/02/19 05:35 Poikilocytosis (manual Present 04/23/19 13:45 PT 11.3 sec (9.0-12.0) 04/23/19 13:45 INR 1.1 (<1.2) 04/23/19 13:45 APTT 20.8 sec (22.0-30.0) L 04/23/19 13:45 Sample Site maulik 04/24/19 08:10 ABG pH 7.32 (7.35-7.45) L 04/24/19 08:10 ABG pCO2 36 mmHg (35-45) 04/24/19 08:10 ABG pO2 179 mmHg (83-108) H 04/24/19 08:10 ABG HCO3 19 mmol/L (21-25) L 04/24/19 08:10 ABG Total CO2 20 mmol/L (19-24) 04/24/19 08:10 ABG O2 Saturation 99.0 % (94-97) H 04/24/19 08:10 ABG Base Excess -7.4 mmol/L 04/24/19 08:10 Jono Test Yes 04/24/19 08:10 FiO2 40 % 04/24/19 08:10 Sodium 137 mmol/L (137-145) 04/29/19 10:06 Potassium 4.4 mmol/L (3.5-5.1) 04/29/19 10:06 Chloride 102 mmol/L (98-107) 04/29/19 10:06 Carbon Dioxide 24 mmol/L (22-30) 04/29/19 10:06 Anion Gap 11 mmol/L 04/29/19 10:06 BUN 13 mg/dL (9-20) 04/29/19 10:06 Creatinine 0.99 mg/dL (0.66-1.25) 04/29/19 10:06 Est GFR (CKD-EPI)AfAm >90 (>60 ml/min/1.73 sqM) 04/29/19 10:06 Est GFR (CKD-EPI)NonAf 85 (>60 ml/min/1.73 sqM) 04/29/19 10:06 Glucose 237 mg/dL (74-99) H 04/29/19 10:06 POC Glucose (mg/dL) 298 mg/dL (75-99) H 05/02/19 21:18 POC Glu Strategic Planning Director ID Christine Anaya 05/02/19 21:18 Calcium 9.8 mg/dL (8.4-10.2) 04/29/19 10:06 Magnesium 1.9 mg/dL (1.6-2.3) 04/24/19 05:00 Total Bilirubin 0.6 mg/dL (0.2-1.3) 04/23/19 13:45 AST 118 U/L (17-59) H 04/23/19 13:45 ALT 104 U/L (21-72) H 04/23/19 13:45 Alkaline Phosphatase 87 U/L (38-126) 04/23/19 13:45 Troponin I <0.012 ng/mL (0.000-0.034) 04/23/19 13:45 Total Protein 7.3 g/dL (6.3-8.2) 04/23/19 13:45 Albumin 4.4 g/dL (3.5-5.0) 04/23/19 13:45 Vitamin B12 1495.0 pg/mL (200.0-944.0) H 04/25/19 05:07 Folate 20.3 ng/mL 04/25/19 05:07 TSH 0.020 mIU/L (0.465-4.680) L 04/25/19 09:37 Total T4 5.1 ug/dL (4.5 - 10.9) 04/26/19 04:30 Free T4 0.87 ng/dL (0.78-2.19) 04/26/19 04:30 Free T3 pg/mL 3.9 pg/ml (2.8-5.3) 04/26/19 04:30 Urine Opiates Screen Detected (NotDetected) H 04/23/19 14:01 Ur Oxycodone Screen Not Detected (NotDetected) 04/23/19 14:01 Urine Methadone Screen Not Detected (NotDetected) 04/23/19 14:01 Ur Propoxyphene Screen Not Detected (NotDetected) 04/23/19 14:01 Ur Barbiturates Screen Not Detected (NotDetected) 04/23/19 14:01 U Tricyclic Antidepress Detected (NotDetected) H 04/23/19 14:01 Ur Phencyclidine Scrn Not Detected (NotDetected) 04/23/19 14:01 Ur Amphetamines Screen Not Detected (NotDetected) 04/23/19 14:01 U Methamphetamines Scrn Not Detected (NotDetected) 04/23/19 14:01 U Benzodiazepines Scrn Not Detected (NotDetected) 04/23/19 14:01 Urine Cocaine Screen Not Detected (NotDetected) 04/23/19 14:01 U Marijuana (THC) Screen Detected (NotDetected) H 04/23/19 14:01 Microbiology 04/27/19 11:13 Blood Blood Culture - Preliminary No Growth after 120 hours 04/24/19 08:40 Sputum Gram Stain - Final 04/24/19 08:40 Sputum Sputum Culture - Final Methicillin resist S. aureus Assessment and Plan (1) Human immunodeficiency virus [HIV] disease Current Visit: Yes Status: Acute Code(s): B20 - HUMAN IMMUNODEFICIENCY VIRUS [HIV] DISEASE SNOMED Code(s): 30984049 (2) Ischemic cardiomyopathy Narrative/Plan: 54-year-old male with long-standing history of HIV infection is been well controlled in the outpatient setting for several years. He is currently on Biktarvy and this is been well-tolerated with adequate CD4 is in excellent control viral load for the last several years. He does have the known history of severe coronary artery disease and ischemic cardiomyopathy. He suffered a bout of cardiopulmonary arrest and has as noted had the successful resuscitation and appears to have had quite a good response at this point in time. However given his ejection fraction of 20-25% he is in need of an AICD. The patient was intubated the routine sputum culture was obtained and there appears to be some colonizer with MRSA in his sputum. The patient does not have pneumonia by chest x-ray, he does not have evidence of pneumonia by symptoms.i The patient is in need of an urgent AICD be placed, and this time I have no specific reason to delay its implantation. 04/28/2019 the patient is showing further improvement. Await cardiology's plan about the placement of the AICD. His family has brought his Biktary from home he is taking that daily. There is no evidence of pneumonia or underlying infection at this point in time may proceed with AICD placement as per cardiology schedule May 07 patient has further improvement but is having some difficulties with his memory that he believes have worsened since his acute event. He'll follow- up in the outpatient setting. Maintain his Biktarvy as before. The. He'll have his AICD placed on Thursday is evidence of negative blood cultures. Sputum culture is a colonizer. 05/02/2019 the patient has had his AICD placed. He is a looking forward to going home. He is quite comfortable and is able to eat without difficulties. There is evidence of some memory deficits, will need outpatient evaluations to further clarify. He has AICD in place and consequently MRI will not be possible. The sputum that has been colonized with no evidence of pneumonia or exacerbation of COPD. Current Visit: No Status: Chronic Code(s): I25.5 - ISCHEMIC CARDIOMYOPATHY SNOMED Code(s): 743416573 (3) Cardiopulmonary arrest with successful resuscitation Current Visit: Yes Status: Acute Code(s): I46.9 - CARDIAC ARREST, CAUSE UNSPECIFIED SNOMED Code(s): 392367738
[2019-05-03 02:32] LABS: Glucose,Whole Blood 205 mg/dL (75-99)
[2019-05-03] MEDS: SODIUM CHLORIDE 0.9% 1,000 ML IV SCH ×2 (05:13→12:17)
[2019-05-03] MEDS: LACTATED RINGERS 1,000 ML IV SCH (06:26)
[2019-05-03 06:27] LABS: Glucose,Whole Blood 162 mg/dL (75-99)
[2019-05-03] MEDS: PANTOPRAZOLE 40 MG TABLET PO SCH (06:28)
[2019-05-03] MEDS: INSULIN ASPART (NovoLOG) 100 UNIT/ML VIAL SQ SCH (06:31)
[2019-05-03] MEDS: IPRATROPIUM-ALBUTEROL 3 ML NEB INHALATION SCH ×2 (07:18→10:57)
[2019-05-03 08:02] VITALS: BP 142/88; TEMP 98.5
--- NOTE | 2019-05-03 08:49 | XR ---
EXAMINATION TYPE: XR chest 2V DATE OF EXAM: 05/03/2019 COMPARISON: 04/27/2019 TECHNIQUE: PA and lateral views submitted. HISTORY: Lead placement check FINDINGS: The lungs are clear and there is no pneumothorax, pleural effusion, or focal pneumonia. Cardiac dev ice is seen with the single lead overlying the region of the right ventricle. Suggestion of previous coronary stenting. Sternotomy wires seen. Subsegmental linear changes most of atelectasis. No overt f ailure. Surgical ky noted. IMPRESSION: 1. Single lead cardiac device overlying the region of the right ventricle.
[2019-05-03] MEDS: AMIODARONE 200 MG TAB PO SCH (08:55)
[2019-05-03] MEDS: ATORVASTATIN 80 MG TAB PO SCH (08:55)
[2019-05-03] MEDS: SENNOSIDES-DOCUSATE SODIUM 1 EACH TAB PO SCH (08:55)
[2019-05-03] MEDS: FLUCONAZOLE 100 MG TAB PO SCH (08:55)
[2019-05-03] MEDS: ASPIRIN 81 MG PO SCH (08:55)
[2019-05-03] MEDS: LOSARTAN 50 MG TAB PO SCH (08:56)
[2019-05-03] MEDS: TICAGRELOR 90 MG TAB PO SCH (08:56)
[2019-05-03] MEDS: METOPROLOL TARTRATE 50 MG TAB PO SCH (08:56)
[2019-05-03] MEDS: HYDROcodone/APAP 5-325MG 1 EACH TAB PO PRN (09:00)
[2019-05-03] MEDS: Bictegrav/Emtricit/Tenofov Ala [Biktarvy 50-200-25 Mg Tablet] PO SCH (09:37)
--- NOTE | 2019-05-03 10:36 | CDI ---
Documentation Clarification Form Date: 05/03/2019 10:26:24 AM From: Janis Sebastian RN, CCDS Admit Date: 04/23/2019 2:33:00 PM Patient Name: Sandip Munson Visit Number: [id number] ATTENTION: The Clinical Documentation Specialists (CDI) and [facility] Coding Staff appreciate your assistance in clarifying documentation. Please respond to the clarification below the line at the bottom and electronically sign. The CDI & [facility] Coding staff will review the response and follow-up if needed. Please note: Queries are made part of the Legal Health Record. If you have any questions, please contact the author of this message via ITS. Dr. Vinay Osborne A diagnosis of anemia lacks specificity to accurately reflect your patients severity of condition and clarification is needed. History/Risk Factors: HIV, DM, CAD with hx of CABG and PCI, EF < 25%, ischemic cardiomyopathy, cardiac arrest Clinical indicators: Attending Progress notes 04/26-05/02: "Normocytic anemia, b-12 and folate WNL. Monitor CBC." Hemoglobin: 12.6/11.1/10.3/11.8 Hematocrit: 37.8/32.4/33.1/36.4 Treatment: Monitoring labs AM Daily IVF @ 50 cc/hr PO ASA and Brilinta In order to capture the severity of condition, please clarify the type of anemia and etiology if known: Unable to determine Other, please specify (Last Revision: April 2017) MTDD
--- NOTE | 2019-05-03 10:52 | CDI ---
Documentation Clarification Form Date: 05/03/2019 10:36:49 AM From: Janis Sebastian RN, CCDS Admit Date: 04/23/2019 2:33:00 PM Patient Name: Sandip Munson Visit Number: [id number] ATTENTION: The Clinical Documentation Specialists (CDI) and [facility] Coding Staff appreciate your assistance in clarifying documentation. Please respond to the clarification below the line at the bottom and electronically sign. The CDI & [facility] Coding staff will review the response and follow-up if needed. Please note: Queries are made part of the Legal Health Record. If you have any questions, please contact the author of this message via ITS. Dr. Vinay Osborne Conflicting documentation has been found in the medical record and requires Clarification of appropriate diagnosis by Attending MD is required. 05/02 AICD Procedure Note (Dr. Alvarez): "Initially it was thought that he had non-Q-wave myocardial infarction. Therefore, this gentleman did not have an acute myocardial infarction. The patient did not have an acute myocardial infarction at this admission." 04/29 Pulmonary Progress note: "acute cardiac arrest secondary to acute ST elevation myocardial infarction." 04/30 Cardiology Progress Note (Dr. Sun): "acute non-ST deviation myocardial infarction." 05/01 Attending Progress Note (Dr. Osborne): "s /p Cardiopulmonary arrest in setting of STEMI." History/Risk Factors: out of hospital witnessed cardiac arrest with bystander CPR, Ischemic cardiomyopathy, chronic systolic CHF, Thrombocytopenia, anemia, DM2, HTN Clinical Indicators: 04/23 Cardiac Cath: "This patient had a cardiac arrest probably related to a scar based situation with ejection fraction of less than 25%.He will therefore be stabilized and if he stabilizes and does well neurologically he may require an ICD down the road." Treatment: Cardic Cath AICD Medication adjustment In your opinion, what is the most clinically appropriate diagnosis for this patient? NO PR, Cardiac Arrest due to other specified cause (Last Revision: October 2017) MTDD
[2019-05-03 11:04] VITALS: PULSE 72
--- NOTE | 2019-05-03 11:10 | P.HPCAR ---
History of Present Illness Patient is lying flat in bed looks comfortable. This location the dressing but minimal hematoma Breath sounds are clear no rhonchi no crackles Heart sounds are normal soft S1 and S2 with a soft systolic murmur Abdomen soft nontender No JVD No lower extremity edema Impression Out of hospital cardiac arrest, resuscitated, status post single chamber ICD implantation yesterday No evidence for acute myocardial infarction based on coronary angiography. There was no progression of his underlying coronary artery disease Severe underlying ischemic cardio myopathy EF 20-25% later left ventricle severely reduced LV systolic function No evidence for vegetation on transesophageal echo, seen by infectious disease service, discussed with Dr. Bonnie guardado Congestive heart failure class 2-3 On maximal medical treatment Elevated DFT of 15 J and ck configuration In the Total configuration 20 J was unsuccessful Suggest Patient may go home from a cardiac standpoint today after completion of IV antibiotics and device interrogation did chest x-ray did not show any pneumothorax Plan Reduce the dose of amiodarone to 400 mg by mouth daily and after one month reduce it to 200 mg by mouth daily Continue losartan Switch to carvedilol 6.25 g twice daily Spironolactone 25 mg by mouth daily continue statins continue antiplatelet therapy Follow-up in the device clinic within [address] Aisha Arellano/Sania Chaudhari within 3-4 weeks Physical Exam Vitals: Vital Signs Temp Pulse Pulse Resp BP Pulse Ox 05/03/19 11:04 72 05/03/19 10:57 70 05/03/19 08:00 98.5 F 98 18 142/88 99 05/03/19 02:42 98.2 F 88 18 132/82 96 05/02/19 23:22 89 18 111/84 97 05/02/19 20:22 78 05/02/19 20:11 78 05/02/19 19:55 98 F 92 18 136/86 98 05/02/19 18:16 91 16 127/86 98 05/02/19 17:18 92 16 129/88 98 05/02/19 16:50 95 18 131/86 98 05/02/19 16:40 80 05/02/19 16:29 80 05/02/19 16:14 77 16 147/85 98 05/02/19 15:59 76 16 144/85 96 05/02/19 15:40 97.0 F L 77 16 149/100 100 05/02/19 12:31 78 18 138/85 97 Intake and Output 05/02/19 05/03/19 05/03/19 22:59 06:59 14:59 Intake Total 290 360 Balance 290 360 Intake: IV 50 Oral 240 360 Other: Voiding Method Urinal Urinal # Voids 1 1 Weight 64.8 kg Past Medical History Past Medical History: Asthma, Chest Pain / Angina, Diabetes Mellitus, GERD/Reflux, Hyperlipidemia, Hypertension, Myocardial Infarction (VT), Osteoarthritis (OA) Additional Past Medical History / Comment(s): HIV, chronic low back pain Last Myocardial Infarction Date:: 2005 History of Any Multi-Drug Resistant Organisms: None Reported Past Surgical History: Coronary Bypass/CABG, Heart Catheterization Additional Past Surgical History / Comment(s): apoorva carpal tunnel, CABG 4 VESSEL- 2005 Past Anesthesia/Blood Transfusion Reactions: No Reported Reaction Date of Last Stent Placement:: 2017 Past Psychological History: Anxiety Additional Psychological History / Comment(s): Lives with his long-term partner Andrey. Medically disabled. Was a heavy tobacco smoker but is not smoking at this point in time but likely uses marijuana. No current injection drug use it is been many years since he has done recreational drug use other than marijuana. No experience. No Travel history. 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 No animals in the home Smoking Status: Former smoker Past Alcohol Use History: Unable to Obtain Past Drug Use History: Unable to Obtain - Past Family History Sister(s) Family Medical History: Coronary Artery Disease (CAD) Father Family Medical History: Cancer Additional Family Medical History / Comment(s): THROAT Mother Family Medical History: Cancer Physical Examination Vital Signs Temp Pulse Pulse Resp BP Pulse Ox 05/03/19 11:04 72 05/03/19 10:57 70 05/03/19 08:00 98.5 F 98 18 142/88 99 05/03/19 02:42 98.2 F 88 18 132/82 96 05/02/19 23:22 89 18 111/84 97 05/02/19 20:22 78 05/02/19 20:11 78 05/02/19 19:55 98 F 92 18 136/86 98 05/02/19 18:16 91 16 127/86 98 05/02/19 17:18 92 16 129/88 98 05/02/19 16:50 95 18 131/86 98 05/02/19 16:40 80 05/02/19 16:29 80 05/02/19 16:14 77 16 147/85 98 05/02/19 15:59 76 16 144/85 96 05/02/19 15:40 97.0 F L 77 16 149/100 100 05/02/19 12:31 78 18 138/85 97 Intake and Output 05/02/19 05/03/19 05/03/19 22:59 06:59 14:59 Intake Total 290 360 Balance 290 360 Intake: IV 50 Oral 240 360 Other: Voiding Method Urinal Urinal # Voids 1 1 Weight 64.8 kg Results 05/02/19 05:35 04/29/19 10:06 Current Medications Generic Name Dose Route Start Last Admin Trade Name Freq PRN Reason Stop Dose Admin Acetaminophen 650 mg 04/23/19 16:58 05/01/19 08:47 Tylenol Tab PO 650 mg Q6HR PRN Administration Mild Pain or Fever > 100.5 Acetaminophen 650 mg 05/02/19 15:35 Tylenol Tab PO Q6HR PRN Mild Pain Hydrocodone Bitart/Acetaminophen 1 each 04/24/19 20:36 05/02/19 05:58 Clark 10 PO 1 each Q6HR PRN Administration Pain Hydrocodone Bitart/Acetaminophen 1 each 05/02/19 15:35 05/03/19 09:00 Clark 5-325 PO 1 each Q4HR PRN Administration Pain Albuterol/Ipratropium 3 ml 04/23/19 20:00 05/03/19 10:57 Duoneb 0.5 Mg-3 Mg/3 Ml Soln INHALATION 3 ml RT-QID JOSE Administration Amiodarone HCl 400 mg 04/25/19 18:00 05/03/19 08:55 Cordarone PO 400 mg BID JOSE Administration Amitriptyline HCl 50 mg 04/24/19 21:00 05/02/19 19:50 Elavil PO 50 mg HS JOSE Administration Aspirin 81 mg 04/24/19 09:00 05/03/19 08:55 Aspirin PO 81 mg DAILY JOSE Administration Atorvastatin Calcium 80 mg 04/24/19 09:00 05/03/19 08:55 Lipitor PO 80 mg DAILY JOSE Administration Fluconazole 100 mg 04/24/19 09:00 05/03/19 08:55 Diflucan PO 100 mg DAILY JOSE Administration Sodium Chloride 1,000 mls @ 50 mls/hr 04/24/19 06:30 05/02/19 16:35 Saline 0.9% IV 50 mls/hr .Q20H JOSE Administration Sodium Chloride 1,000 mls @ 50 mls/hr 05/02/19 08:45 05/03/19 05:13 Saline 0.9% IV Not Given .Q20H JOSE Lactated Ringer's 1,000 mls @ 20 mls/hr 04/30/19 07:35 05/03/19 06:26 Lactated Ringers IV Not Given .Q24H JOSE Cefazolin Sodium 2 gm/ Sodium 50 mls @ 100 mls/hr 05/02/19 20:00 05/03/19 08:55 Chloride IVPB 05/03/19 14:29 100 mls/hr Q6H JOSE Administration Insulin Aspart 0 unit 04/23/19 17:30 05/03/19 06:31 Novolog SQ 1 unit ACHS JOSE Administration Protocol Insulin Detemir 30 unit 05/01/19 21:00 05/02/19 21:22 Levemir SQ 15 unit HS JOSE Administration Lidocaine HCl 0.1 ml 04/30/19 07:35 .Xylocaine 1% Inj (10mg/Ml) For Iv Start INTRADERMA PER PROTOCOL PRN IV Start Losartan Potassium 100 mg 04/26/19 09:00 05/03/19 08:56 Cozaar PO 100 mg DAILY JOSE Administration Metoprolol Tartrate 5 mg 04/24/19 06:31 Lopressor IVP Q4HR PRN Heart Rate over 100BPM Metoprolol Tartrate 50 mg 04/24/19 09:00 05/03/19 08:56 Lopressor PO 50 mg BID JOSE Administration Naloxone HCl 0.2 mg 04/23/19 16:58 Narcan IV Q2M PRN Opioid Reversal Bictegrav/Emtricit/ 1 tab 04/24/19 09:00 05/03/19 09:37 Tenofov Ala [ PO Not Given Biktarvy 50-200-25 DAILY JOSE Mg Tablet] Pantoprazole Sodium 40 mg 04/26/19 07:30 05/03/19 06:28 Protonix PO 40 mg AC-BRKFST JOSE Administration Senna/Docusate Sodium 1 each 04/30/19 21:00 05/03/19 08:55 Senokot-S PO 1 each BID JOSE Administration Sodium Chloride 10 ml 05/02/19 21:00 05/03/19 08:56 Saline Flush IV 10 ml Q12HR JOSE Administration Ticagrelor 90 mg 04/23/19 21:00 05/03/19 08:56 Brilinta PO 90 mg BID JOSE Administration Intake and Output 05/02/19 05/03/19 05/03/19 22:59 06:59 14:59 Intake Total 290 360 Balance 290 360 Intake: IV 50 Oral 240 360 Other: Voiding Method Urinal Urinal # Voids 1 1 Weight 64.8 kg 05/02/19 05:35 04/29/19 10:06
--- NOTE | 2019-05-03 12:02 | P.PN ---
Subjective Progress Note Date: 05/03/19 Principal diagnosis: Cardiac arrest On 05/03/2019 patient seen in follow-up on selective care unit, he is status post AICD implantation, postop day 1, doing well, no specific complaints other than some mild soreness in his incisional site in the left upper chest, one sounds are clear, denies any difficulty breathing, denies any chest pain, vitals are stable, he is on room air, sputum culture was positive for MRSA, blood cultures show no growth, which is thought to be of: Eyes are in his sputum, no evidence of pneumonia on the chest x-ray, and no clinical symptoms of pneumonia. Patient is just receiving Kefzol for prophylaxis after his AICD implantation, doing well. Anticipate discharge home today. Objective - Vital Signs Vital signs: Vital Signs Temp 98.5 F 05/03/19 08:00 Pulse 72 05/03/19 11:04 Resp 18 05/03/19 08:00 BP 142/88 05/03/19 08:00 Pulse Ox 99 05/03/19 08:00 Intake & Output 05/02/19 05/03/19 05/03/19 18:59 06:59 18:59 Intake Total 790 360 Balance 790 360 Weight 64.8 kg Intake: IV 550 Oral 240 360 Other: Voiding Method Urinal # Voids 1 ABP, PAP, CO, CI - Last Documented Arterial Blood Pressure 158/75 - Exam GENERAL EXAM: Alert, active, pleasant, 54-year-old -[place] male, on room air comfortable in no apparent distress. HEAD: Normocephalic/atraumatic. EYES: Normal reaction of pupils, equal size. Conjunctiva pink, sclera white. NOSE: Clear with pink turbinates. THROAT: No erythema or exudates. NECK: No masses, no JVD, no thyroid enlargement, no adenopathy. CHEST: No chest wall deformity. Symmetrical expansion. Left upper chest incisions clean dry and intact, left arm is in a sling, status post left chest AICD implantation LUNGS: Equal air entry with no crackles, wheeze, rhonchi or dullness. CVS: Regular rate and rhythm, normal S1 and S2, no gallops, no murmurs, no rubs ABDOMEN: Soft, nontender. No hepatosplenomegaly, normal bowel sounds, no guarding or rigidity. EXTREMITIES: No clubbing, no edema, no cyanosis, 2+ pulses and upper and lower extremities. MUSCULOSKELETAL: Muscle strength and tone normal. SPINE: No scoliosis or deformity SKIN: No rashes CENTRAL NERVOUS SYSTEM: Alert and oriented -3. No focal deficits, tone is normal in all 4 extremities. PSYCHIATRIC: Alert and oriented -3. Appropriate affect. Intact judgment and insight. - Labs CBC & Chem 7: 05/02/19 05:35 04/29/19 10:06 Labs: Abnormal Lab Results - Last 24 Hours (Table) 05/02/19 05/02/19 05/02/19 Range/Units 16:12 16:36 21:18 POC Glucose (mg/dL) 149 H 131 H 298 H (75-99) mg/dL 05/03/19 05/03/19 Range/Units 02:31 06:26 POC Glucose (mg/dL) 205 H 162 H (75-99) mg/dL Microbiology - Last 24 Hours (Table) 04/27/19 11:13 Blood Culture - Preliminary Blood No Growth after 120 hours Assessment and Plan Plan: 1 acute cardiac arrest secondary to acute ST elevation myocardial infarction 2 severe ischemic cardiomyopathy with ejection fraction 20-25%. CARMINA shows no vegetation on valves. Status post AICD implantation on 05/02/2019 today's postop day 1 3 acute hypoxic respiratory failure requiring intubation mechanical ventilatory support secondary to above. Recovered. On room air. 4history of CABG in 2005 insulin at [facility] 5 history of hypertension 6 HIV positive diagnosis since 2013 7 [id number] diabetes 8 previous history of tobacco dependence syndrome.presently in remission. 9 family history of early coronary artery disease 10 hyperlipidemia Plan: Doing well, no acute complaints, no fever or chills, no difficulty breathing, vital signs are stable, revealed no vegetation/endocarditis, no evidence of pneumonia on the chest x-ray, MRSA in the sputum was felt to be a colonizer. Despite discharge home today I performed a history & physical examination of the patient and discussed their management with my nurse practitioner, Jie Solis. I reviewed the nurse practitioner's note and agree with the documented findings and plan of care. Lung sounds are positive for clear breath sounds. The findings and the impression was discussed with the patient. I attest to the documentation by the nurse practitioner. Time with Patient: Less than 30
[2019-05-03 12:03] LABS: Glucose,Whole Blood 240 mg/dL (75-99)
[2019-05-04] MEDS ORDERED: AMIODARONE 200 MG TAB PO SCH (09:00)
--- NOTE | 2019-05-06 05:52 | CDI ---
Documentation Clarification Form Date: 05/06/19 From: Bo Treviño Phone: call [phone] Admit Date: 04/23/2019 2:33:00 PM Patient Name: Sandip Munson Visit Number: [id number] Discharge Date: 05/03/2019 12:51:00 PM ATTENTION: The Clinical Documentation Specialists (CDI) and [facility] Coding Staff appreciate your assistance in clarifying documentation. Please respond to the clarification below the line at the bottom and electronically sign. The CDI & [facility] Coding staff will review the response and follow-up if needed. Please note: Queries are made part of the Legal Health Record. If you have any questions, please contact the author of this message via ITS. Dr. Vinay Osborne, Your patient has the documented diagnosis of Cardiac arrest and Ventricular tachycardia, Ischemic cardiomyopathy. Cardiac cath revealed no significant progression of disease, probably a scar based VT, Cardiac arrest with possible ischemia or scar based ventricular tachycardia, resuscitated with AED shock. 2. Ischemic cardiomyopathy with a prior aortocoronary bypass surgery and PCI. A relationship between diagnoses cannot be assumed unless documented as such by the attending physician. In order to capture the severity of condition; please document the relationship, if any, between these diagnoses. History/Risk Factors: CABG, AICD Treatment: cardiac cath, AICD. Please clarify and document your clinical opinion in the progress notes and discharge summary if any relationship (due to, caused by, secondary to) exists between these two diagnoses. Please include clinical findings supporting your diagnosis. cardiac arrest due to Ventricular tachycardia cardiac arrest due to sever ischemic cardiomyopathy Other explanation of clinical findings (please specify) Unable to determine (no explanation for clinical findings) cardiac arrest due to Ventricular tachycardia__ MTDD
--- NOTE | 2019-05-17 11:17 | P.DS ---
Providers Date of admission: 04/23/19 14:33 Expected date of discharge: 05/03/19 Attending physician: Jaron Valencia MD Consults: 04/24/19 08:11 Consult Physician Routine Consulting Provider: Herlinda Treviño Consult Reason/Comments: heart catherization Do you want consulting provider notified?: Already Contacted 04/24/19 08:15 Consult Physician Routine Consulting Provider: Adria Powell Consult Reason/Comments: icu management Do you want consulting provider notified?: Already Contacted 04/26/19 06:08 Consult Physician Routine Consulting Provider: Luis Daniel Alvarez Consult Reason/Comments: AICD placement Do you want consulting provider notified?: Yes, Notify in am 04/26/19 15:43 Consult Physician Routine Consulting Provider: Andrey Cota Consult Reason/Comments: MRSA Sputum Do you want consulting provider notified?: Yes Primary care physician: [facility] Hospital Course: The patient is a 54-year-old male with a past medical history of coronary artery disease status post CABG and multiple stents, systolic CHF (EF 25%), HIV, hypertension, diabetes mellitus, hyperlipidemia suffered a cardiopulmonary arrest while at home, in the setting of STEMI. The patient was resuscitated by EMS wit [facility] after round of defibrillation. The patient was taken to the cath- lab where no interventions were made. The patient was extubated successfully on 04/24. The patient's sputum culture grew MRSA. The patient was placed on droplet precautions. ID was consulted. The patient underwent a CARMINA on 04/27 which revealed no evidence of any infectious endocarditis with normal intracardiac valves, with ejection fraction 20-25%. Patient is currently awaiting AICD placement to be done 05/02 Plan - Discharge Summary Discharge Rx Participant: Yes New Discharge Prescriptions: Continue Esomeprazole Magnesium [NexIUM] 40 mg PO DAILY ALPRAZolam [Xanax] 2 mg PO BID PRN PRN Reason: Anxiety Atorvastatin [Lipitor] 80 mg PO HS Albuterol Inhaler [Ventolin Hfa Inhaler] 1 - 2 puff INHALATION RT-Q6H PRN PRN Reason: Shortness Of Breath Nitroglycerin Sl Tabs [Nitrostat] 0.4 mg SUBLINGUAL Q5M PRN PRN Reason: Chest Pain Bictegrav/Emtricit/Tenofov Ala [Biktarvy 50-200-25 mg Tablet] 1 tab PO DAILY Aspirin 325 mg PO DAILY Insulin Glargine,Hum.rec.anlog [Basaglar Kwikpen U-100] 30 units SQ DAILY Multivitamins, Thera [Multivitamin (formulary)] 1 tab PO DAILY HYDROcodone/APAP 10-325MG [[place] 10-325] 1 tab PO Q6HR PRN PRN Reason: Pain Fluconazole [Diflucan] 100 mg PO DAILY Amitriptyline HCl [Elavil] 50 mg PO HS Ticagrelor [Brilinta] 90 mg PO BID #30 tab No Action Olmesartan Medoxomil [Benicar] 40 mg PO DAILY Metoprolol Tartrate [Lopressor] 25 mg PO BID Discharge Medication List Olmesartan Medoxomil [Benicar] 40 mg PO DAILY 04/23/14 [History] Esomeprazole Magnesium [NexIUM] 40 mg PO DAILY 05/29/14 [History] ALPRAZolam [Xanax] 2 mg PO BID PRN 10/03/16 [History] Atorvastatin [Lipitor] 80 mg PO HS 10/03/16 [History] Albuterol Inhaler [Ventolin Hfa Inhaler] 1 - 2 puff INHALATION RT-Q6H PRN 02/19 08/06 [History] Aspirin 325 mg PO DAILY 03/19/18 [History] Bictegrav/Emtricit/Tenofov Ala [Biktarvy 50-200-25 mg Tablet] 1 tab PO DAILY 03/19/18 [History] Nitroglycerin Sl Tabs [Nitrostat] 0.4 mg SUBLINGUAL Q5M PRN 03/19/18 [History] Insulin Glargine,Hum.rec.anlog [Basaglar Kwikpen U-100] 30 units SQ DAILY 09/14/18 [History] Amitriptyline HCl [Elavil] 50 mg PO HS 04/23/19 [History] Fluconazole [Diflucan] 100 mg PO DAILY 04/23/19 [History] HYDROcodone/APAP 10-325MG [[place] 10-325] 1 tab PO Q6HR PRN 04/23/19 [History] Metoprolol Tartrate [Lopressor] 25 mg PO BID 04/23/19 [History] Multivitamins, Thera [Multivitamin (formulary)] 1 tab PO DAILY 04/23/19 [History] Ticagrelor [Brilinta] 90 mg PO BID #30 tab 04/25/19 [Rx] Follow up Appointment(s)/Referral(s): Jimbo Leonard MD [STAFF PHYSICIAN] - 05/09/19 2:00 pm (Device check and doctor visit) None,Stated [REFERRING] - 1-2 days Activity/Diet/Wound Care/Special Instructions: PATIENT EDUCATION MATERIAL Instructions following a heart rhythm device implant. 1. Keep dressing DRY for 5 DAYS. You may cover the area with Saran or Cling Wrap, prior to a shower. 2. The dressing will be removed in the Device Clinic at [facility]. Absorbable sutures were used to close the wound. 3. Avoid raising the left arm above the shoulder level. 4 week restriction 4. Avoid arm movements, like backscratching, rubbing the head, or pulling on a cord. 4 weeks restriction 5. Gentle range of motion movements of the shoulder, closest to the incision should be performed to avoid a frozen shoulder. (Pendulum exercises of the shoulder) 6. The opposite arm may be used freely. 7. Avoid driving for 7 days. 8. Avoid activities such as golfing, swimming, weed whacking, lifting more than 10 pounds weight, bowling, gymnastics and weight training/lifting. (6 weeks restriction) 9. Activities such as wood chopping with an axe, pull-ups in the gymnasium, power lifting, arc-welding, being close to home induction cooktops will always be a problem. 10. Arm sling is only a reminder not to raise the arm above the head. You do not need to keep the arm completely immobilized. Your free to move the arm and use it and for normal activities. In case of any problems, please call [facility], [facility], @ [phone], Attention: Device Clinic Device clinic follow-up in 5 days Follow-up with primary 2nd grade teacher in 2-3 months Discharge Disposition: HOME SELF-CARE
== END 2019-05-03 12:51 | disposition home or self-care (01) | DRG 224 ==
LOC: EC 13:36 → 2SICU 14:33 → 3SCARD 04-26 14:14
PROVIDERS: ADMIT Family Medicine; ATTEND Family Medicine
PROC: B2111ZZ Fluoroscopy of Multiple Coronary Arteries using Low Osmolar Contrast (ICD-10-PCS; 2019-04-23)
PROC: B2131ZZ Fluoroscopy of Multiple Coronary Artery Bypass Grafts using Low Osmolar Contrast (ICD-10-PCS; 2019-04-23)
PROC: 4A023N7 Measurement of Cardiac Sampling and Pressure, Left Heart, Percutaneous Approach (ICD-10-PCS; 2019-04-23)
PROC: 03HB33Z Insertion of Infusion Device into Right Radial Artery, Percutaneous Approach (ICD-10-PCS; 2019-04-23)
PROC: 5A1935Z Respiratory Ventilation, Less than 24 Consecutive Hours (ICD-10-PCS; 2019-04-23)
PROC: B24BZZ4 Ultrasonography of Heart with Aorta, Transesophageal (ICD-10-PCS; 2019-04-27)
PROC: 02HK3KZ Insertion of Defibrillator Lead into Right Ventricle, Percutaneous Approach (ICD-10-PCS; principal; 2019-05-02 13:30)
PROC: 0JH608Z Insertion of Defibrillator Generator into Chest Subcutaneous Tissue and Fascia, Open Approach (ICD-10-PCS; principal; 2019-05-02 13:30)
DX: I47.2 Ventricular tachycardia (principal); J96.01 Acute respiratory failure with hypoxia; E87.2 Acidosis; I50.22 Chronic systolic (congestive) heart failure; I25.810 Atherosclerosis of coronary artery bypass graft(s) without angina pectoris; I46.8 Cardiac arrest due to other underlying condition; I25.5 Ischemic cardiomyopathy; I25.10 Atherosclerotic heart disease of native coronary artery without angina pectoris; E11.9 Type 2 diabetes mellitus without complications; E78.5 Hyperlipidemia, unspecified; E78.00 Pure hypercholesterolemia, unspecified; D53.9 Nutritional anemia, unspecified; I11.0 Hypertensive heart disease with heart failure; D69.6 Thrombocytopenia, unspecified; K21.9 Gastro-esophageal reflux disease without esophagitis; F41.9 Anxiety disorder, unspecified; I25.82 Chronic total occlusion of coronary artery; J45.909 Unspecified asthma, uncomplicated; M19.90 Unspecified osteoarthritis, unspecified site; M54.5 Low back pain; Z21 Asymptomatic human immunodeficiency virus [HIV] infection status; G89.29 Other chronic pain; I25.2 Old myocardial infarction; Z22.322 Carrier or suspected carrier of Methicillin resistant Staphylococcus aureus; Z82.49 Family history of ischemic heart disease and other diseases of the circulatory system; Z83.438 Family history of other disorder of lipoprotein metabolism and other lipidemia; Z79.02 Long term (current) use of antithrombotics/antiplatelets; Z79.4 Long term (current) use of insulin; Z79.82 Long term (current) use of aspirin; Z79.899 Other long term (current) drug therapy; Z98.890 Other specified postprocedural states; Z80.1 Family history of malignant neoplasm of trachea, bronchus and lung; Z95.5 Presence of coronary angioplasty implant and graft; Z87.891 Personal history of nicotine dependence
CPT/HCPCS: 33249; 36415; 36600; 71045; 71046; 80048; 80053; 80306; 82607; 82746; 82805; 83735; 84436; 84439; 84443; 84481; 84484; 85025; 85027; 85610; 85730; 87040; 87070; 87077; 87186; 87205; 93306; 93312; 93320; 93325; 93458; 93641; 94002; 94003; 94640; 94760; 96365; 96375; 96376; 99291

== ENCOUNTER → 2019-07-02 | Outpatient (CLI) | payer MEDICARE ==
[2019-07-02 17:28] LABS: Albumin 4.4 g/dL (3.80-4.90); Albumin/Globulin Ratio 2.1 (1.60-3.17); Anion Gap 7.1 mmol/L (4.00-12.00); Calcium 9.4 mg/dL (8.7-10.3); Carbon Dioxide 23.9 mmol/L (21.6-31.8); Chol/HDL Ratio 2.12; Globulin 2.1 g/dL (1.6-3.3); LDL Cholesterol,Calculated 42.2 mg/dL (0.0-131.0); Non-African American GFR(CKD) 47.5 (60.0-200.0); Potassium 4.6 mmol/L (3.5-5.5); Total Bilirubin 0.4 mg/dL (0.3-1.2); Total Protein 6.5 g/dL (6.2-8.2); VLDL Calculation 13.8 mg/dL (5.00-40.00)
[2019-07-02 18:31] LABS: Hemoglobin A1C 10.2 % (4.0-6.0)
== END | disposition home or self-care (01) ==
LOC: LABWHC1 09:34
PROVIDERS: ATTEND Internal Medicine Endocrinology, Diabetes & Metabolism
DX: E10.65 Type 1 diabetes mellitus with hyperglycemia (principal)
CPT/HCPCS: 36415; 80053; 80061; 83036; 84443

== ENCOUNTER → 2020-04-23 | Outpatient (CLI) | payer MEDICARE, OTHER ==
[2020-04-23 17:17] LABS: Hemoglobin A1C 9.8 % (4.0-6.0)
[2020-04-23 17:31] LABS: African American GFR (CKD) 70.2 (60.0-200.0); Albumin 4.1 g/dL (3.80-4.90); Albumin/Globulin Ratio 1.64 (1.60-3.17); Anion Gap 6.9 mmol/L (4.00-12.00); BUN/Creat Ratio 8.46 Ratio (12.00-20.00); Calcium 9.5 mg/dL (8.7-10.3); Carbon Dioxide 23.1 mmol/L (21.6-31.8); Chol/HDL Ratio 2.6; Globulin 2.5 g/dL (1.6-3.3); LDL Cholesterol,Calculated 57.6 mg/dL (0.0-131.0); Non-African American GFR(CKD) 60.6 (60.0-200.0); Potassium 4.7 mmol/L (3.5-5.5); Total Bilirubin 0.4 mg/dL (0.2-1.2); Total Protein 6.6 g/dL (6.2-8.2); VLDL Calculation 17.4 mg/dL (5.00-40.00)
== END | disposition home or self-care (01) ==
LOC: LABWHC1 07:57
PROVIDERS: ATTEND Internal Medicine Endocrinology, Diabetes & Metabolism
DX: E10.65 Type 1 diabetes mellitus with hyperglycemia (principal)
CPT/HCPCS: 36415; 80053; 80061; 83036; 84443

== ENCOUNTER → 2020-08-13 | Outpatient (CLI) | payer MEDICARE, OTHER ==
[2020-08-13 16:38] LABS: Chol/HDL Ratio 2.9; LDL Cholesterol,Calculated 59.6 mg/dL (0.0-131.0); VLDL Calculation 20.4 mg/dL (5.00-40.00)
== END | disposition home or self-care (01) ==
LOC: LABWHC1 07:36
PROVIDERS: ATTEND Nurse Practitioner Adult Health
DX: E78.5 Hyperlipidemia, unspecified (principal)
CPT/HCPCS: 36415; 80061

== ENCOUNTER → 2020-08-30 | Outpatient (CLI) | payer MEDICARE, OTHER ==
[2020-08-30 12:01] LABS: C-Peptide 0.45 ng/mL (0.81-3.85)
== END | disposition home or self-care (01) ==
LOC: LABWHC1 06:58
PROVIDERS: ATTEND Internal Medicine Endocrinology, Diabetes & Metabolism
DX: E10.65 Type 1 diabetes mellitus with hyperglycemia (principal)
CPT/HCPCS: 36415; 82947; 84681

== ENCOUNTER 2020-10-09 00:31 | Emergency (ER) | payer MEDICARE, OTHER ==
[2020-10-09] MEDS ORDERED: SODIUM BICARB 8.4% 50 ML SYR (1 MEQ/ML) ONE (00:32)
[2020-10-09] MEDS ORDERED: EPINEPHrine 10 ML SYRINGE (0.1 MG/ML) ONE (00:32)
--- NOTE | 2020-10-09 00:59 | ED ---
CPR HPI - General Chief Complaint: Cardiac Arrest/CPR Stated Complaint: Cardiac arrest Source: EMS, RN notes reviewed, old records reviewed Mode of arrival: EMS Limitations: altered mental status - History of Present Illness Initial Comments: This is a 55-year-old male who presents cardiopulmonary arrest by EMS. Unable to provide history history from EMS states the patient was speaking with friend when he felt ill and fell Down, bystander CPR was started and EMS arrived on scene. EMS did give 8 epinephrine prior to arrival. And CPR is been continued. Patient does have a long cardiac history with obvious signs of prior CABG and pacer placed MD Complaint: found unresponsive, collapsed during activity (was speaking with a friend and felt ill) -: minute(s) (45) Place: home Bystander CPR Performed: Yes AED Applied by Bystander/Dermatology Procedural Physician: Yes Shock Advised: Yes Number of Shocks Delivered: 2 Downtime Before ACLS Arrival (mins): 15 Initial Findings in the Field: unresponsive, palpable pulse, no BP, VTACH/VFIB ROSC in the Field: No Associated Injuries: No Associated Symptoms: other Treatments Prior to Arrival: other airway device, chest compressions, defibrillated shocks #, epinephrine mgs # - Related Data Home Medications Medication Instructions Recorded Confirmed Olmesartan Medoxomil [Benicar] 40 mg PO DAILY 04/23/14 04/23/19 Esomeprazole Magnesium [NexIUM] 40 mg PO DAILY 05/29/14 04/23/19 ALPRAZolam [Xanax] 2 mg PO BID PRN 10/03/16 04/23/19 Atorvastatin [Lipitor] 80 mg PO HS 10/03/16 04/23/19 Albuterol Inhaler (Mhu) [Ventolin 1 - 2 puff INHALATION RT-Q6H PRN 03/19/18 04/23/19 Hfa Inhaler (Mhu)] Bictegrav/Emtricit/Tenofov Ala 1 tab PO DAILY 03/19/18 04/23/19 [Biktarvy 50-200-25 mg Tablet] Insulin Glargine,Hum.rec.anlog 30 units SQ DAILY 09/14/18 04/23/19 [Basaglar Kwikpen U-100] Amitriptyline HCl [Elavil] 50 mg PO HS 04/23/19 04/23/19 Fluconazole [Diflucan] 100 mg PO DAILY 04/23/19 04/23/19 HYDROcodone/APAP 10-325MG [[place] 1 tab PO Q6HR PRN 04/23/19 04/23/19 10-325] Multivitamins, Thera [Multivitamin 1 tab PO DAILY 04/23/19 04/23/19 (formulary)] Previous Rx's Medication Instructions Recorded Ticagrelor [Brilinta] 90 mg PO BID #30 tab 04/25/19 Amiodarone [Cordarone] 400 mg PO DAILY #30 tab 05/03/19 Aspirin 81 mg PO DAILY #90 chewable 05/03/19 Nitroglycerin Sl Tabs [Nitrostat] 0.4 mg SUBLINGUAL Q5M PRN #25 tab 05/03/19 Spironolactone 25 mg PO DAILY #90 tablet 05/03/19 Ticagrelor [Brilinta] 90 mg PO BID #90 tab 05/03/19 carvediloL [Coreg] 6.25 mg PO BID #180 tablet 05/03/19 Allergies Allergy/AdvReac Type Severity Reaction Status Date / Time No Known Allergies Allergy Verified 04/23/19 17:09 Review of Systems ROS Statement: Those systems with pertinent positive or pertinent negative responses have been documented in the HPI. ROS Other: All systems not noted in ROS Statement are negative. Past Medical History Past Medical History: Asthma, Chest Pain / Angina, Diabetes Mellitus, GERD/Reflux, Hyperlipidemia, Hypertension, Myocardial Infarction (OR), Osteoarthritis (OA) Additional Past Medical History / Comment(s): HIV, chronic low back pain Last Myocardial Infarction Date:: 2005 History of Any Multi-Drug Resistant Organisms: MRSA Date of last positivie culture/infection: 04/24/19 MDRO Source:: Sputum Past Surgical History: Coronary Bypass/CABG, Heart Catheterization Additional Past Surgical History / Comment(s): apoorva carpal tunnel, CABG 4 VESSEL- 2005 Past Anesthesia/Blood Transfusion Reactions: No Reported Reaction Date of Last Stent Placement:: 2017 Past Psychological History: Anxiety Past Alcohol Use History: Unable to Obtain Past Drug Use History: Unable to Obtain - Past Family History Sister(s) Family Medical History: Coronary Artery Disease (CAD) Father Family Medical History: Cancer Additional Family Medical History / Comment(s): THROAT Mother Family Medical History: Cancer General Exam Limitations: altered mental status, physical limitation General appearance: obtunded, in distress Head exam: Present: atraumatic, normocephalic, normal inspection Eye exam: Present: other (fixed and dilated) ENT exam: Present: normal exam, mucous membranes moist Neck exam: Present: normal inspection. Absent: tenderness, meningismus, lymphadenopathy Respiratory exam: Present: other (apnea) Cardiovascular Exam: Present: other (paced, no pulse) GI/Abdominal exam: Present: soft, normal bowel sounds. Absent: distended, tenderness, guarding, rebound, rigid Extremities exam: Present: normal inspection, full ROM, normal capillary refill. Absent: tenderness, pedal edema, joint swelling, calf tenderness Skin exam: Present: warm, dry, intact, normal color. Absent: rash Course - Reevaluation(s) Reevaluation #1: 10/09/20 02:15 Medical record is reviewed Reevaluation #2: 10/09/20 02:16 Spoke with family regarding patient's passing, the questions have been answered Reevaluation #3: 10/09/20 02:16 Spoke with director medical Reevaluation #4: 10/09/20 02:16 Call is made to patient's primary care's Sarah Medical Decision Making - Medical Decision Making 55 male to the ER for evaluation patient presents in cardiopulmonary arrest, ACLS protocol followed with inability to revive patient. Ultrasound provided at bedside was negative, showed cardiac standstill, patient's eyes are fixed and dilated he is both pulseless and apneic, patient does have a paced rhythm Critical Care Time Critical Care Time: Yes Total Critical Care Time: 31 Disposition Clinical Impression: Status post coronary artery bypass graft, Cardiac arrest, Cardiopulmonary arrest Disposition: Condition: Critical Is patient prescribed a controlled substance at d/c from ED?: No Referrals: None,Stated [Primary Care Provider] - 1-2 days Preliminary Cause of : CPA
== END 2020-10-09 04:19 | disposition expired ==
LOC: EC 00:31
DX: I46.9 Cardiac arrest, cause unspecified (principal); Z95.1 Presence of aortocoronary bypass graft; E78.5 Hyperlipidemia, unspecified; E11.9 Type 2 diabetes mellitus without complications; F41.9 Anxiety disorder, unspecified; I10 Essential (primary) hypertension; I25.2 Old myocardial infarction; J45.909 Unspecified asthma, uncomplicated; K21.9 Gastro-esophageal reflux disease without esophagitis; M19.90 Unspecified osteoarthritis, unspecified site; Z79.4 Long term (current) use of insulin; Z79.82 Long term (current) use of aspirin
CPT/HCPCS: 99291